=== PATIENT | female | born 1935 | race Caucasian/White ===

== ENCOUNTER 2017-02-13 20:54 | Observation (INO) | payer MEDICARE, OTHER ==
--- NOTE | 2017-02-13 21:28 | EDM.PDOC ---
ED HPI GENERAL MEDICAL PROBLEM - General Chief Complaint: General Stated Complaint: WEAKNESS Time Seen by Provider: 02/13/17 21:23 Source of Information: Reports: Patient History Limitations: Reports: No limitations - History of Present Illness INITIAL COMMENTS - FREE TEXT/NARRATIVE: c/o anemia was seen in clinic by INVENTORY CONTROL SPECIALIST this afternoon, told to come to hospital to be admitted , Dr Beth was expecting here, did not come until this PM when her friend persuaded her to come c/o sob, URI and "wobbly" x 3d, hgb 6.8 today, told she needed blood does not know color of stools, BM x 1 today, loose stools 1d ago told she had a "small IN" based on her EKG which is not available, no previous CV trouble never smoked lives alone, friend brought her in never had a colonoscopy, had been recommended earlier this yr labs told are without comparison hgb 6.8, mcv 66, rdw 18. BUN/creat 26/1.5. BNP 276. pCO2 26. CxR 2 view with flattened diaphragms, cardiomegaly, old compression fx t-spine - Related Data Allergies Allergy/AdvReac Type Severity Reaction Status Date / Time No Known Allergies Allergy Verified 02/13/17 20:55 Home Meds: Home Meds Aspirin [Adult Low Dose Aspirin EC] 81 mg PO DAILY 08/09/15 [History] Calcium Carbonate/Vitamin D3 [Calcium 600 + D Tablet] 1 tab BID 08/09/15 [ History] Cyclobenzaprine [Flexeril] 10 mg BEDTIME 08/09/15 [History] HYDROcodone/Ibuprofen [Hydrocodone-Ibuprofen 7.5-200] 1 tab Q4H PRN 08/09/15 [ History] Multivitamin with Minerals [Multiple Vitamin] 1 tab DAILY 08/09/15 [History] rOPINIRole [Requip] 2 mg PO BID 08/09/15 [History] Past Medical History Other HEENT History: L retinal detachment Other Musculoskeletal History: compression fx to back - Past Surgical History Other HEENT Surgeries/Procedures: surgery on both eyes Social & Family History - Tobacco Use Smoking Status *Q: Former Smoker Years of Tobacco use: 2 - Recreational Drug Use Recreational Drug Use: No ED ROS GENERAL - Review of Systems Review Of Systems: See Below Constitutional: Reports: no symptoms HEENT: Reports: No symptoms Respiratory: Reports: No Symptoms Cardiovascular: Reports: No symptoms Endocrine: Reports: no symptoms GI/Abdominal: Reports: No symptoms : Reports: no symptoms Musculoskeletal: Reports: no symptoms Skin: Reports: no symptoms Neurological: Reports: Weakness, Other (not fallen) Psychiatric: Reports: No symptoms Hematologic/Lymphatic: Reports: no symptoms Immunologic: Reports: no symptoms ED EXAM, GENERAL - Physical Exam Exam: See Below Exam Limited By: No limitations General Appearance: alert, WD/WN, no apparent distress Ears: normal external exam Nose: normal inspection, normal mucosa, no blood Throat/Mouth: Normal inspection, Normal lips, Normal gums, Normal oropharynx, Normal voice, No airway compromise Head: atraumatic Neck: normal inspection, supple, non-tender, full range of motion, other (no carotid bruits) Respiratory/Chest: no respiratory distress, lungs clear, normal breath sounds, no accessory muscle use, chest non-tender Cardiovascular: regular rate, rhythm, no edema, no gallop, no murmur, no rub GI/Abdominal: normal bowel sounds, soft, non tender, no distention, no mass Back Exam: normal inspection, full range of motion, NT Extremities: normal inspection, normal range of motion, non-tender, normal capillary refill, no pedal edema Neurological: alert, oriented, CN II-XII intact, normal cognition, no motor/ sensory deficits Psychiatric: normal affect, normal mood Skin Exam: Warm, Dry, Intact, No rash, Other (pallor) Course - Vital Signs Last Recorded V/S: Last Vital Signs Temp 36.7 C 02/13/17 21:05 Pulse 74 02/13/17 21:05 Resp 17 02/13/17 21:05 BP 117/56 L 02/13/17 21:05 Pulse Ox 100 02/13/17 21:05 Departure - Departure Time of Disposition: 21:29 Disposition: Admitted As Inpatient 65 Condition: good Clinical Impression: Microcytic hypochromic anemia, Renal insufficiency, Elevated brain natriuretic peptide (BNP) level, Cardiomegaly, Weakness Forms: ED Department Discharge Additional Instructions: will admit to obs bed for 2u PRBC, will need stool hemoccult, TSH, u/a, orthostatics. will repeat EKG, may need cardiac echo
[2017-02-13] MEDS ORDERED: Acetaminophen 325 MG Tab PO PRN (21:34)
[2017-02-13] MEDS ORDERED: Zolpidem 5 MG Tab PO PRN (21:34)
[2017-02-13] MEDS ORDERED: HYDROcodone/Ibuprofen 7.5-200 MG Tab PO PRN (21:42)
[2017-02-13] MEDS ORDERED: Sodium Chloride 0.9% 250 ML IV SCH (21:45)
[2017-02-13] MEDS ORDERED: rOPINIRole 2 MG Tab PO SCH (21:45)
[2017-02-13] MEDS ORDERED: rOPINIRole 1 MG Tab ONE (23:05)
[2017-02-13] MEDS: Sodium Chloride 0.9% 10 ML Syringe FLUSH PRN (23:10)
[2017-02-13] MEDS: rOPINIRole 1 MG Tab PO SCH (23:11)
[2017-02-14] MEDS ORDERED: Furosemide 20 MG/2 ML VIAL IVPUSH ONE (03:30)
[2017-02-14] MEDS: Sodium Chloride 0.9% 10 ML Syringe FLUSH PRN ×3 (04:30→07:32)
[2017-02-14 08:32] VITALS: BP 97/60
[2017-02-14] MEDS ORDERED: Aspirin 81 MG Tab.EC PO SCH (09:00)
--- NOTE | 2017-02-14 09:01 | PCM.HP ---
H&P History of Present Illness - General Date of Service: 02/14/17 Admit Problem/Dx: Admission Diagnosis/Problem Admission Diagnosis/Problem Microcytic hypochromic anemia Source of Information: Patient History Limitations: Reports: No limitations - History of Present Illness Initial Comments - Free Text/Narative: 81-year-old female with shortness of breath, on mild exertion. She was seen in the urgent care clinic yesterday and found to have a hemoglobin of 6.9. She presented acutely with symptoms over just about a week. She denied any overt bleeding areas e.g. melena stools or diarrhea ,and she has never had a colonoscopy.she also complained of no altered bowel movements negative she have any chest pain. She did state that she's had heartburn for which she takes omeprazole. No chest pain.She has never had a colonoscopy. - Related Data Allergies/Adverse Reactions: Allergies Allergy/AdvReac Type Severity Reaction Status Date / Time No Known Allergies Allergy Verified 02/13/17 20:55 Home Medications: Home Meds Aspirin [Adult Low Dose Aspirin EC] 81 mg PO DAILY 08/09/15 [History] Multivitamin with Minerals [Multiple Vitamin] 1 tab DAILY 08/09/15 [History] rOPINIRole [Requip] 2 mg PO BID 08/09/15 [History] Calcium Carbonate [Calcium] 600 mg PO DAILY 02/13/17 [History] Gabapentin [Neurontin] 600 mg PO BEDTIME 02/13/17 [History] Past Medical History HEENT History: Reports: Cataract, Macular degeneration Other HEENT History: L retinal detachment Cardiovascular History: Reports: None Respiratory History: Reports: None Gastrointestinal History: Reports: Other (see below) Other Gastrointestinal History: occ heartburn problems takes omeprazole Genitourinary History: Reports: Other (see below) Other Genitourinary History: POA states that patient was currently told that her jidney fucntion now is only 33%. Has a hard time getting urine to start, occ stress incont ACCESS CONTROL OFFICER History: Reports: , Other (see below) Other OB/BYN History: hysterectomy Other Musculoskeletal History: compression fx to back Neurological History: Reports: None Psychiatric History: Reports: None Endocrine/Metabolic History: Reports: None Hematologic History: Reports: Anemia Oncologic (Cancer) History: Reports: None Dermatologic History: Reports: None - Infectious Disease History Infectious Disease History: Reports: Chicken pox, Measles, Pertussis (whooping cough) - Past Surgical History Head Surgeries/Procedures: Reports: None HEENT Surgical History: Reports: Cataract surgery Other HEENT Surgeries/Procedures: surgery on both eyes Social & Family History - Family History Family Medical History: Noncontributory - Tobacco Use Smoking Status *Q: Never Smoker Years of Tobacco use: 2 Second Hand Smoke Exposure: No - Caffeine Use Caffeine Use: Reports: Coffee Other Caffeine Use: 4-6 cups a day - Recreational Drug Use Recreational Drug Use: No H&P Review of Systems - Review of Systems: Review Of Systems: ROS reveals no pertinent complaints other than HPI. Exam - Exam Exam: See Below - Vital Signs Vital Signs: Last Vital Signs Temp 97.9 F 02/14/17 08:25 Pulse 74 02/14/17 07:25 Resp 18 02/14/17 08:25 BP 97/60 02/14/17 08:25 Pulse Ox 97 02/14/17 08:25 Orthostatic Blood Pressure [ 116/74 Standing] Orthostatic Blood Pressure [ 120/60 Sitting] Orthostatic Blood Pressure [ 120/56 Supine] Weight: 56.608 kg - Exam General: alert, oriented, 4 HEENT: PERRLA, Hearing intact, Mucosa moist & pink, Nares patent, Normal nasal septum, Posterior pharynx clear, Conjunctiva clear, EOMI, EACs clear, TMs clear Neck: supple, trachea midline, 2 Lungs: Clear to auscultation, Normal respiratory effort Cardiovascular: regular rate, regular rhythm Abdomen: normal bowel sounds, soft (Female) Exam: Normal external exam, Normal speculum exam, Normal bimanual exam Rectal (Female) Exam: Normal Exam, Normal rectal tone Back Exam: normal inspection, full range of motion, NT Extremities: 3, normal inspection, 10 Skin: warm, dry, intact Neurological: cranial nerves intact, reflexes equal bilateral Neuro Extensive - Mental Status: alert, oriented x3, normal mood/affect, normal cognition Neuro Extensive - Motor, Sensory, Reflexes: CN II-XII intact, normal gait, normal reflexes Psychiatric: alert, normal affect, normal mood - Patient Data Lab Results last 24 hrs: Laboratory Results - last 24 hr 02/14/17 02/14/17 Range/Units 05:00 07:50 WBC 2.7 L (4.5-12.0) X10-3/uL RBC 4.33 (3.23-5.20) x10(6)uL Hgb 9.8 L D (11.5-15.5) g/dL Hct 31.5 (30.0-51.3) % MCV 72.7 L (80-96) fL MCH 22.6 L (27.7-33.6) pg MCHC 31.0 L (32.2-35.4) g/dL RDW 23.5 H (11.5-15.5) % Plt Count 279 (125-369) X10(3)uL MPV 8.1 (7.4-10.4) fL Add Manual Diff Yes Neutrophils % (Manual) 46 (46-82) % Lymphocytes % (Manual) 40 H (13-37) % Monocytes % (Manual) 14 H (4-12) % Hypochromasia Few Anisocytosis Moderate H Microcytosis Moderate H Urine Color Yellow (YELLOW) Urine Appearance Clear (CLEAR) Urine pH 5.0 (5.0-6.5) Ur Specific [place] 1.015 (1.010-1.025) Urine Protein Negative (NEGATIVE) mg/dL Urine Glucose (UA) Normal (NEGATIVE) mg/dL Urine Ketones Negative (NEGATIVE) mg/dL Urine Occult Blood Negative (NEGATIVE) Urine Nitrite Negative (NEGATIVE) Urine Bilirubin Negative (NEGATIVE) Urine Urobilinogen Normal (NEGATIVE) mg/dL Ur Leukocyte Esterase Moderate H (NEGATIVE) Urine RBC 0-5 (0) Urine WBC 0-5 (0) Ur Squamous Epith Cells Few H (NS,R,O) Urine Bacteria Rare H (NS) Result Diagrams: 02/14/17 07:50 *Q Meaningful Use (ADM) - VTE *Q VTE Criteria *Q: - Stroke *Q Stroke Criteria *Q: - AMI *Q AMI Criteria *Q: - Problem List (1) Microcytic hypochromic anemia SNOMED Code(s): 12763698 ICD Code: D50.9 - IRON DEFICIENCY ANEMIA, UNSPECIFIED Status: Acute Current Visit: Yes (2) Back pain SNOMED Code(s): 058823776 ICD Code: M54.9 - DORSALGIA, UNSPECIFIED Status: Acute Current Visit: No Problem List Initiated/Reviewed/Updated: Yes Orders Last 24hrs: Active Orders 24 hr Category Date Time Status Patient Status [ADT] Routine ADT 02/13/17 21:34 Active Ambulate [RC] 09,13,17,21 Care 02/13/17 21:36 Active Orthostatic Vital Signs [RC] ASDIRECTED Care 02/13/17 21:40 Active Oxygen Therapy [RC] PRN Care 02/13/17 21:34 Active VTE/DVT Education [RC] Per Unit Routine Care 02/13/17 21:34 Active Vital Signs [RC] 04,08,12,16,20,00 Care 02/13/17 21:34 Active 2 Gram Sodium Diet [DIET] Diet 02/14/17 Breakfast Ordered Echo Comp wo Cont [US] Stat Exams 02/13/17 21:41 Stop Req Echo Comp wo Cont [US] Stat Exams 02/15/17 07:00 Ordered FERRITIN [REF] Stat Lab 02/13/17 14:25 Received Hemoccult [OCCULT BLOOD DIAGNOSTIC] [OP] Stat Lab 02/14/17 08:28 Ordered Acetaminophen [Tylenol] Med 02/13/17 21:34 Active 650 mg PO Q4H PRN Aspirin [Halfprin] Med 02/14/17 09:00 Active 81 mg PO DAILY HYDROcodone/Ibuprofen [Vicoprofen] Med 02/13/17 21:42 Active 1 tab PO Q4H PRN Sodium Chloride 0.9% [Normal Saline] 250 ml Med 02/13/17 21:45 Active IV ASDIRECTED Sodium Chloride 0.9% [Saline Flush] Med 02/13/17 23:03 Active 10 ml FLUSH ASDIRECTED PRN Zolpidem [Ambien] Med 02/13/17 21:34 Active 5 mg PO BEDTIME PRN rOPINIRole [Requip] Med 02/13/17 23:15 Active 2 mg PO BID Transfuse PRBC [Transfuse Red Blood Cells] [COMM] Per Oth 02/13/17 21:38 Ordered Unit Routine Resuscitation Status Routine Resus Stat 02/13/17 21:34 Ordered EKG 12 Lead [EK] AM Ther 02/14/17 05:11 Ordered Medication Orders Acetaminophen (Tylenol) 650 mg PO Q4H PRN PRN Reason: Pain (Mild 1-3)/fever Aspirin (Halfprin) 81 mg PO DAILY CARLOS Hydrocodone Bitartrate/Ibuprofen (Vicoprofen) 1 tab PO Q4H PRN PRN Reason: Pain Sodium Chloride (Normal Saline) 250 mls @ 100 mls/hr IV ASDIRECTED [facility] Last Admin: 02/14/17 01:10 Dose: 100 mls/hr Ropinirole HCl (Requip) 2 mg PO BID [facility] Last Admin: 02/13/17 23:11 Dose: 2 mg Sodium Chloride (Saline Flush) 10 ml FLUSH ASDIRECTED PRN PRN Reason: Keep Vein Open Last Admin: 02/14/17 07:32 Dose: 10 ml Admin: 02/14/17 04:34 Dose: 10 ml Admin: 02/14/17 04:30 Dose: 10 ml Admin: 02/13/17 23:10 Dose: 10 ml Zolpidem Tartrate (Ambien) 5 mg PO BEDTIME PRN PRN Reason: Sleep Assessment/Plan Comment:: Overnight she said 2 units of PRBCs. She states that she feels better this morning, and the hemoglobin is up to 9.8. WBC is 2.7 platelets are normal. I did an occult blood testing of feces in the post negative. The plan is to discharge him home to followup as an outpatient, and a further workup for anemia but will have her go home on iron supplementation.
[2017-02-14] MEDS: rOPINIRole 1 MG Tab PO SCH (13:36)
== END 2017-02-14 10:25 | disposition home or self-care (01) ==
LOC: FB.ED 20:54 → FB.MS 21:31
PROVIDERS: ADMIT Emergency Medicine; ATTEND Family Medicine
DX: D50.9 Iron deficiency anemia, unspecified (principal); M54.9 Dorsalgia, unspecified; Z79.82 Long term (current) use of aspirin; Z79.899 Other long term (current) drug therapy; Z90.710 Acquired absence of both cervix and uterus; Z98.890 Other specified postprocedural states; Z87.891 Personal history of nicotine dependence; R06.02 Shortness of breath; R53.83 Other fatigue; R94.31 Abnormal electrocardiogram [ECG] [EKG]; J44.9 Chronic obstructive pulmonary disease, unspecified; M48.54XA Collapsed vertebra, not elsewhere classified, thoracic region, initial encounter for fracture; K44.9 Diaphragmatic hernia without obstruction or gangrene; Q21.1 Atrial septal defect; M41.84 Other forms of scoliosis, thoracic region
CPT/HCPCS: 36415; 36430; 36600; 71020; 80053; 81001; 82272; 82728; 82803; 83605; 83880; 84443; 84484; 85025; 85379; 86850; 86900; 86901; 86920; 86922; 93005; 99284; 99285; A9270; G0378; J1940; J7050; P9016; 99218

== ENCOUNTER 2017-03-15 06:12 | Day surgery (SDC) | payer MEDICARE, OTHER ==
[2017-03-15] MEDS ORDERED: Lactated Ringers 1,000 ML IV SCH (06:45)
[2017-03-15] MEDS ORDERED: Propofol 200 MG/20 ML SDV IV ONE (08:00)
[2017-03-15] MEDS ORDERED: Lidocaine 2% 100 MG/5 ML Syringe IVPUSH ONE (08:00)
--- NOTE | 2017-03-15 08:41 | PCM.OPNOTE ---
- General Post-Op/Procedure Note Date of Surgery/Procedure: 03/15/17 Operative Procedure(s): egd with bx. c scope Findings: mild gastritis hiatal hernia normal colon Pre Op Diagnosis: fe def anemia Post-Op Diagnosis: mild gastritis. hiatal hernia. normal colon Anesthesia Technique: MAC Primary Surgeon: Harinder Ortiz Anesthesia Provider: Pete Hurd Pathology: stomach Complications: None Condition: Good Free Text/Narrative:: see dictation
[2017-03-15 09:50] VITALS: BP 130/76
--- NOTE | 2017-03-15 11:25 | OR ---
DATE OF OPERATION: 03/15/2017 SURGEON: Harinder Ortiz MD PROCEDURE PERFORMED: Esophagogastroduodenoscopy with cold forceps biopsy and colonoscopy. PREOPERATIVE DIAGNOSIS: Anemia, iron deficient. POSTOPERATIVE DIAGNOSES: Gastritis, hiatal hernia, normal colonoscopy. INDICATIONS FOR PROCEDURE: This is an 81-year-old, white female, who was recently referred with a history of iron deficiency anemia. She was offered and accepted an EGD as part of the workup. DESCRIPTION OF OPERATION: After an excellent IV sedation was administered, the bite block was inserted. The flexible endoscope was passed without difficulty into the patient's esophagus into the stomach. The stomach was insufflated. The scope was passed through the pylorus to the second portion of the duodenum and slowly withdrawn. The following findings were noted. Duodenum was unremarkable. The stomach demonstrates some very mild gastritis. Biopsies were taken. On retroflexing the scope, there was evidence of a hiatal hernia with approximately 10 cm of stomach, freely sliding in and out of the chest. GE junction measured at 30 cm. Examination of the esophagus revealed no marked abnormalities. Stomach was deflated. The scope was removed. Our attention was then turned to the colon. Digital rectal exam was performed. No marked abnormality was noted. The flexible colonoscope was inserted and advanced to the cecum without difficulty. The following findings were noted. Ascending colon, unremarkable. Transverse colon, unremarkable. Descending colon, unremarkable. Sigmoid and rectum unremarkable. Colon was deflated, as the scope was removed. The patient tolerated the procedure well, and was taken to recovery room in good condition. /[id number] /QUANL
== END 2017-03-15 09:35 | disposition home or self-care (01) ==
LOC: FB.SDS 06:12
PROVIDERS: ATTEND Surgery
PROC: 0DJD8ZZ Inspection of Lower Intestinal Tract, Via Natural or Artificial Opening Endoscopic (ICD-10-PCS; principal; 2017-03-15)
DX: D50.9 Iron deficiency anemia, unspecified (principal); K29.70 Gastritis, unspecified, without bleeding; K44.9 Diaphragmatic hernia without obstruction or gangrene; Z79.82 Long term (current) use of aspirin; Z79.899 Other long term (current) drug therapy; Z90.710 Acquired absence of both cervix and uterus; Z98.890 Other specified postprocedural states
CPT/HCPCS: 00810; 43239; 45378; 88305; 88342; J2704; J7120

== ENCOUNTER 2017-10-13 19:09 | Emergency (ER) | payer MEDICARE, OTHER ==
[2017-10-13] MEDS ORDERED: Ketorolac 30 MG/ML SDV IM ONE (19:15)
--- NOTE | 2017-10-13 19:24 | EDM.PDOC ---
ED HPI GENERAL MEDICAL PROBLEM - General Stated Complaint: BACK PAIN Time Seen by Provider: 10/13/17 19:09 Source of Information: Reports: Patient, Family History Limitations: Reports: No Limitations - History of Present Illness INITIAL COMMENTS - FREE TEXT/NARRATIVE: 82 years old w f with a history of scoliosis, come to the ed due to worsening upper back pain. No trauma.Pain is worse at the upper back, left and right side of her spine. No N/V/D or any other acute medical issues. BP 135/68 pulse 76 temp 36.7 RR 19 Pulse ox 96% in RA Onset: Gradual Onset Date: 10/13/17 Onset Time: 07:00 Duration: Getting Worse, Intermittent Location: Reports: Back Quality: Reports: Ache, Burning, Dull, Same as Previous Episode Severity: Moderate Improves with: Reports: Rest Worsens with: Reports: Movement Context: Reports: Other (scoliosis) Mid to upper back Pain Score (Numeric/FACES): 8 - Related Data Allergies Allergy/AdvReac Type Severity Reaction Status Date / Time No Known Allergies Allergy Verified 03/15/17 08:59 Home Meds: Home Meds Aspirin [Adult Low Dose Aspirin EC] 81 mg PO DAILY 08/09/15 [History] Multivitamin with Minerals [Multiple Vitamin] 1 tab DAILY 08/09/15 [History] Calcium Carbonate [Calcium] 600 mg PO DAILY 02/13/17 [History] Gabapentin [Neurontin] 600 mg PO BEDTIME 02/13/17 [History] Ferrous Sulfate 324 mg PO BID 03/14/17 [History] Acetaminophen [Tylenol Extra Strength] 1,000 mg PO BID PRN 10/13/17 [History] Ibuprofen [Motrin] 600 mg PO Q8H PRN #30 tab 10/13/17 [Rx] Orphenadrine [Norflex] 100 mg PO QID PRN #20 tab.er 10/13/17 [Rx] Pantoprazole Sodium [Protonix] 40 mg PO DAILY 10/13/17 [History] Past Medical History HEENT History: Reports: Cataract, Macular Degeneration, Retinal Detachment Other HEENT History: PSEUDOPHAKIA; HYPEROPIA; ASTIGMATISM; PRESBYOPIA Cardiovascular History: Reports: None Respiratory History: Reports: None Gastrointestinal History: Reports: GERD Genitourinary History: DIRECTOR OF PHOTOGRAPHY History: Reports: Musculoskeletal History: Reports: Arthritis, Back Pain, Chronic Other Musculoskeletal History: compression fx to back Neurological History: Reports: Vertigo Psychiatric History: Reports: None Endocrine/Metabolic History: Reports: None Hematologic History: Reports: Anemia, Iron Deficiency Immunologic History: Reports: None Oncologic (Cancer) History: Reports: None Dermatologic History: Reports: None - Infectious Disease History Infectious Disease History: Reports: Chicken Pox - Past Surgical History HEENT Surgical History: Reports: Cataract Surgery, Detached Retina, Laser Surgery Social & Family History - Family History Family Medical History: Noncontributory - Tobacco Use Smoking Status *Q: Never Smoker Years of Tobacco use: 2 Second Hand Smoke Exposure: No - Caffeine Use Caffeine Use: Reports: Coffee Other Caffeine Use: 4-6 cups a day - Recreational Drug Use Recreational Drug Use: No ED ROS GENERAL - Review of Systems Review Of Systems: See Below Constitutional: Reports: No Symptoms HEENT: Reports: No Symptoms Respiratory: Reports: No Symptoms Cardiovascular: Reports: No Symptoms Endocrine: Reports: No Symptoms GI/Abdominal: Reports: No Symptoms : Reports: No Symptoms Musculoskeletal: Reports: Shoulder Pain, Back Pain Skin: Reports: No Symptoms Neurological: Reports: No Symptoms Psychiatric: Reports: No Symptoms Hematologic/Lymphatic: Reports: No Symptoms Immunologic: Reports: No Symptoms ED EXAM, UPPER BACK/NECK PAIN - Physical Exam Exam: See Below Exam Limited By: No Limitations General Appearance: Alert, WD/WN, Cachetic Eye Exam: Bilateral Eye: Normal Inspection Ears Exam: Normal External Exam Nose Exam: Normal Inspection Throat/Mouth Exam: Normal Inspection, Normal Lips Head Exam: Atraumatic, Normocephalic Neck Exam: Non-Tender, Full Range of Motion, Normal Alignment, Normal Inspection Cardiovascular/Respiratory: Regular Rate, Rhythm, No M/R/G GI/Abdominal: Normal Bowel Sounds (Female) Exam: Deferred Rectal (Female) Exam: Deferred Back Exam: Decreased Range of Motion, Muscle Spasm, Paraspinal Tenderness Extremities: Normal Inspection, Normal Range of Motion, Non-Tender, No Pedal Edema Neurologic: scouts II-XII nml As Tested, No Motor/Sensory Deficits, Alert Psychiatric: Normal Affect, Normal Mood Skin Exam: Normal Color, Warm/Dry Lymphatic: No Adenopathy Course - Vital Signs Text/Narrative:: 82 years old w f with a history of scoliosis, come to the ed due to worsening upper back pain. No trauma.Pain is worse at the upper back, left and right side of her spine. No N/V/D or any other acute medical issues. BP 135/68 pulse 76 temp 36.7 RR 19 Pulse ox 96% in RA PE: Cachectic 82 y.o.w.f with upper para vertebral back pain Impression: pper para vertebral back pain, cachexia Tx: Toradol, Norflex, ICE Reexam: Improved Plan: D/C with instructions Last Recorded V/S: Last Vital Signs Temp 36.4 C 10/13/17 19:15 Pulse 75 10/13/17 19:15 Resp 18 10/13/17 19:15 BP 135/68 10/13/17 19:15 Pulse Ox 100 10/13/17 19:15 - Orders/Labs/Meds Orders: Active Orders 24 hr Category Date Time Status Cooling Warming Measures [RC] ASDIRECTED Care 10/13/17 19:18 Active Orphenadrine [Norflex] Med 10/13/17 19:15 Active 60 mg IM Q12H Ice Bag [Ice Therapy] [OM.PC] Routine Oth 10/13/17 19:18 Ordered Medication Orders Orphenadrine Citrate (Norflex) 60 mg IM Q12H CARLOS Last Admin: 10/13/17 19:30 Dose: 60 mg Meds: Medications Generic Name Dose Route Start Last Admin Trade Name Freq PRN Reason Stop Dose Admin Orphenadrine Citrate 60 mg 10/13/17 19:15 10/13/17 19:30 Norflex IM 60 mg Q12H CARLOS Administration Discontinued Medications Generic Name Dose Route Start Last Admin Trade Name Freq PRN Reason Stop Dose Admin Ketorolac Tromethamine 30 mg 10/13/17 19:15 10/13/17 19:28 Toradol IM 10/13/17 19:16 30 mg ONETIME ONE Administration Departure - Departure Time of Disposition: 20:19 Disposition: Home, Self-Care 01 Condition: Good Clinical Impression: Scoliosis (and kyphoscoliosis), idiopathic Back pain Qualifiers: Back pain location: thoracic back pain Chronicity: chronic Back pain laterality : bilateral Qualified Code(s): M54.6 - Pain in thoracic spine - Discharge Information Prescriptions: Ibuprofen [Motrin] 600 mg PO Q8H PRN #30 tab PRN Reason: Pain Orphenadrine [Norflex] 100 mg PO QID PRN #20 tab.er PRN Reason: back spasm Instructions: Back Pain, Adult, [id number] Referrals: Gab Calix MD [Primary Care Provider] - Forms: ED Department Discharge Additional Instructions: Please apply ice to the affected area, please take the meds as recommended, please follow up, please come back if your symptoms get worse. - My Orders Last 24 Hours: My Active Orders 10/13/17 19:15 Orphenadrine [Norflex] 60 mg IM Q12H 10/13/17 19:18 Cooling Warming Measures [RC] ASDIRECTED Ice Bag [Ice Therapy] [OM.PC] Routine - Assessment/Plan Last 24 Hours: My Active Orders 10/13/17 19:15 Orphenadrine [Norflex] 60 mg IM Q12H 10/13/17 19:18 Cooling Warming Measures [RC] ASDIRECTED Ice Bag [Ice Therapy] [OM.PC] Routine
[2017-10-13 22:28] VITALS: BP 112/55
== END 2017-10-13 20:35 | disposition home or self-care (01) ==
LOC: FB.ED 19:09
DX: M41.24 Other idiopathic scoliosis, thoracic region (principal); R64 Cachexia; Z79.899 Other long term (current) drug therapy; Z79.82 Long term (current) use of aspirin
CPT/HCPCS: 96372; 99283; J1885; J2360

== ENCOUNTER 2020-09-17 06:15 | Inpatient (IN) | payer MEDICARE, OTHER ==
[2020-09-17] MEDS ORDERED: Pantoprazole 40 MG Vial IVPUSH ONE (06:49)
[2020-09-17] MEDS ORDERED: Ondansetron 4 MG/2 ML SDV IVPUSH ONE (06:49)
[2020-09-17] MEDS ORDERED: Digoxin 500 MCG/2 ML Amp IVPUSH ONE (06:49)
[2020-09-17] MEDS ORDERED: Sodium Chloride 0.9% 500 ML IV ONE (06:50)
--- NOTE | 2020-09-17 06:56 | EDM.PDOC ---
ED HPI GENERAL MEDICAL PROBLEM - General Chief Complaint: Abdominal Pain Stated Complaint: VOMITTING/ABDOMINAL PAIN Time Seen by Provider: 09/17/20 06:51 Source of Information: Reports: Patient History Limitations: Reports: No Limitations - History of Present Illness INITIAL COMMENTS - FREE TEXT/NARRATIVE: Presents with epigastric pain and N/V, onset 2 days ago. She vomited on day one of illness but has only been nauseas since. Denies diarrhea, fevers, cough, or chest pain. Last BM was three days ago and she last had flatus four days ago. Patient has never been diagnosed with Atrial Fibrillation. Past surgical history significant for Hysterectomy. Patient lives alone. Ligia Ivory is her HPOA, she states patient is DNR. Onset Date: 09/15/20 Location: Reports: Abdomen Quality: Reports: Ache Severity: Moderate - Related Data Allergies Allergy/AdvReac Type Severity Reaction Status Date / Time No Known Allergies Allergy Verified 03/15/17 08:59 Home Meds: Home Meds Aspirin [Adult Low Dose Aspirin EC] 81 mg PO DAILY 08/09/15 [History] Multivitamin with Minerals [Multiple Vitamin] 1 tab DAILY 08/09/15 [History] Calcium Carbonate [Calcium] 600 mg PO DAILY 02/13/17 [History] Gabapentin [Neurontin] 600 mg PO BEDTIME 02/13/17 [History] Ferrous Sulfate 324 mg PO BID 03/14/17 [History] Acetaminophen [Tylenol Extra Strength] 1,000 mg PO BID PRN 10/13/17 [History] Ibuprofen [Motrin] 600 mg PO Q8H PRN #30 tab 10/13/17 [Rx] Orphenadrine [Norflex] 100 mg PO QID PRN #20 tab.er 10/13/17 [Rx] Pantoprazole Sodium [Protonix] 40 mg PO DAILY 10/13/17 [History] Past Medical History HEENT History: Reports: Cataract, Macular Degeneration, Retinal Detachment Other HEENT History: PSEUDOPHAKIA; HYPEROPIA; ASTIGMATISM; PRESBYOPIA Cardiovascular History: Reports: None Respiratory History: Reports: None Gastrointestinal History: Reports: GERD Genitourinary History: [employer] History: Reports: Musculoskeletal History: Reports: Arthritis, Back Pain, Chronic Other Musculoskeletal History: compression fx to back Neurological History: Reports: Vertigo Psychiatric History: Reports: None Endocrine/Metabolic History: Reports: None Hematologic History: Reports: Anemia, Iron Deficiency Immunologic History: Reports: None Oncologic (Cancer) History: Reports: None Dermatologic History: Reports: None Other Dermatologic History: Gets frequent rashes & sores. - Infectious Disease History Infectious Disease History: Reports: Chicken Pox - Past Surgical History HEENT Surgical History: Reports: Cataract Surgery, Detached Retina, Laser Surgery Female Surgical History: Reports: Hysterectomy Social & Family History - Family History Family Medical History: Noncontributory - Tobacco Use Tobacco Use Status *Q: Former Tobacco User - Caffeine Use Caffeine Use: Reports: Coffee Other Caffeine Use: 4-6 cups a day - Alcohol Use Alcohol Use History: No - Recreational Drug Use Recreational Drug Use: No ED ROS GENERAL - Review of Systems Review Of Systems: Comprehensive ROS is negative, except as noted in HPI. ED EXAM, GI/ABD - Physical Exam Exam: See Below Exam Limited By: No Limitations General Appearance: Alert, WD/WN, No Apparent Distress Ears: Normal External Exam Nose: Normal Inspection Throat/Mouth: Normal Inspection, No Airway Compromise Head: Atraumatic, Normocephalic Neck: Normal Inspection Respiratory/Chest: No Respiratory Distress, Lungs Clear, Normal Breath Sounds Cardiovascular: Regular Rate, Rhythm, No Murmur GI/Abdominal Exam: Normal Bowel Sounds, Soft, No Distention, Tender (epigastric). No: Guarding Back Exam: Full Range of Motion Extremities: Normal Range of Motion Neurological: Alert, Oriented, Normal Cognition, No Motor/Sensory Deficits Psychiatric: Normal Affect, Normal Mood Skin Exam: Warm, Dry, Intact, Normal Color #1 Interpretation EKG Date: 09/17/20 Time: 06:28 Rhythm: A-Fib Rate (Beats/Min): 135 [place]: Normal P-Wave: Absent QRS: Normal ST-T: Depressed QT: Prolonged Comparison: Change From Previous EKG Course - Vital Signs Last Recorded V/S: Last Vital Signs Temp 35.8 C L 09/17/20 07:57 Pulse 88 09/17/20 07:57 Resp 18 09/17/20 07:57 BP 119/83 09/17/20 07:57 Pulse Ox 99 09/17/20 07:57 - Orders/Labs/Meds Orders: Active Orders 24 hr Category Date Time Status Admission Status [Patient Status] [ADT] Routine ADT 09/17/20 09:18 Ordered EKG Documentation Completion [RC] ASDIRECTED Care 09/17/20 06:47 Active EKG Documentation Completion [RC] ASDIRECTED Care 09/17/20 07:49 Active Abdomen Ltd [US] Stat Exams 09/17/20 08:47 Ordered Abdomen Pelvis w Cont [CT] Stat Exams 09/17/20 07:50 Taken CULTURE BLOOD [BC] Urgent Lab 09/17/20 07:00 Received CULTURE BLOOD [BC] Urgent Lab 09/17/20 07:05 Received LACTIC ACID [CHEM] Routine Lab 09/17/20 10:00 Ordered UA W/MICROSCOPIC [URIN] Stat Lab 09/17/20 06:46 Ordered Piperacillin/Tazobactam [Zosyn] 2.25 gm Med 09/17/20 09:00 Active Sodium Chloride 0.9% [Normal Saline] 50 ml IV Q6H Sodium Chloride 0.9% @ 100 MLS/HR(1,000ml) Med 09/17/20 09:15 Ordered Sodium Chloride 0.9% [Normal Saline] 1,000 ml IV ASDIRECTED Sodium Chloride 0.9% [Saline Flush] Med 09/17/20 06:47 Active 10 ml FLUSH ASDIRECTED PRN Blood Culture x2 Reflex Set [OM.PC] Urgent Oth 09/17/20 06:46 Ordered Saline Lock Insert [OM.PC] Routine Oth 09/17/20 06:47 Ordered EKG 12 Lead [EK] Stat Ther 09/17/20 06:47 Ordered EKG 12 Lead [EK] Stat Ther 09/17/20 07:49 Ordered Medication Orders Piperacillin Sod/Tazobactam (Sod 2.25 gm/ Sodium Chloride) 50 mls @ 100 mls/hr IV Q6H CARLOS Last Admin: 09/17/20 09:02 Dose: 100 mls/hr Documented by: SPIKE Sodium Chloride (Normal Saline) 1,000 mls @ 100 mls/hr IV ASDIRECTED CARLOS Sodium Chloride (Saline Flush) 10 ml FLUSH ASDIRECTED PRN PRN Reason: Keep Vein Open Last Admin: 09/17/20 09:01 Dose: 10 ml Documented by: Admin: 09/17/20 07:00 Dose: 10 ml Documented by: MANUEL Labs: Laboratory Tests 10/28/20 10/28/20 10/28/20 Range/Units 07:00 07:00 07:00 WBC 16.0 H (4.5-12.0) X10-3/uL RBC 4.73 (3.23-5.20) x10(6)uL Hgb 15.3 (11.5-15.5) g/dL Hct 44.9 D (30.0-51.3) % MCV 94.9 (80-96) fL MCH 32.4 (27.7-33.6) pg MCHC 34.1 (32.2-35.4) g/dL RDW 12.9 (11.5-15.5) % Plt Count 352 (125-369) X10(3)uL MPV 7.6 (7.4-10.4) fL Add Manual Diff Yes Neutrophils % (Manual) 86 H (46-82) % Band Neutrophils % 1 (0-6) % Lymphocytes % (Manual) 9 L (13-37) % Monocytes % (Manual) 4 (4-12) % PT 10.5 (9.0-11.1) sec INR 0.97 L (1.00-1.24) APTT 23.6 L (24.4-33.2) SECONDS Sodium 139 (135-145) mmol/L Potassium 4.1 (3.5-5.3) mmol/L Chloride 102 (100-110) mmol/L Carbon Dioxide 28 (21-32) mmol/L BUN 34 H (7-18) mg/dL Creatinine 1.6 H (0.55-1.02) mg/dL Est Cr Clr Drug Dosing 18.13 mL/min Estimated GFR (MDRD) 31 L (>60) BUN/Creatinine Ratio 21.3 H (9-20) Glucose 141 H (80-116) mg/dL Lactic Acid (0.4-2.0) mmol/L Calcium 9.3 (8.6-10.2) mg/dL Magnesium (1.8-2.5) mg/dL Total Bilirubin 0.7 (0.1-1.3) mg/dL AST 22 (5-25) IU/L ALT 19 (12-36) U/L Alkaline Phosphatase 66 (56-112) IU/L Troponin I (4.0-60.3) pg/mL Total Protein 6.6 (6.0-8.0) g/dL Albumin 2.9 L (3.2-4.6) g/dL Globulin 3.7 g/dL Albumin/Globulin Ratio 0.8 Lipase (73-393) U/L TSH, Ultra Sensitive (0.36-3.74) IU/mL SARS-CoV-2 RNA (MARIA) (NEGATIVE) 09/17/20 09/17/20 09/17/20 Range/Units 07:00 07:00 07:00 WBC (4.5-12.0) X10-3/uL RBC (3.23-5.20) x10(6)uL Hgb (11.5-15.5) g/dL Hct (30.0-51.3) % MCV (80-96) fL MCH (27.7-33.6) pg MCHC (32.2-35.4) g/dL RDW (11.5-15.5) % Plt Count (125-369) X10(3)uL MPV (7.4-10.4) fL Add Manual Diff Neutrophils % (Manual) (46-82) % Band Neutrophils % (0-6) % Lymphocytes % (Manual) (13-37) % Monocytes % (Manual) (4-12) % PT (9.0-11.1) sec INR (1.00-1.24) APTT (24.4-33.2) SECONDS Sodium (135-145) mmol/L Potassium (3.5-5.3) mmol/L Chloride (100-110) mmol/L Carbon Dioxide (21-32) mmol/L BUN (7-18) mg/dL Creatinine (0.55-1.02) mg/dL Est Cr Clr Drug Dosing mL/min Estimated GFR (MDRD) (>60) BUN/Creatinine Ratio (9-20) Glucose (80-116) mg/dL Lactic Acid 2.8 H* (0.4-2.0) mmol/L Calcium (8.6-10.2) mg/dL Magnesium 2.1 (1.8-2.5) mg/dL Total Bilirubin (0.1-1.3) mg/dL AST (5-25) IU/L ALT (12-36) U/L Alkaline Phosphatase (56-112) IU/L Troponin I 52.8 (4.0-60.3) pg/mL Total Protein (6.0-8.0) g/dL Albumin (3.2-4.6) g/dL Globulin g/dL Albumin/Globulin Ratio Lipase 102 (73-393) U/L TSH, Ultra Sensitive 0.60 (0.36-3.74) IU/mL SARS-CoV-2 RNA (MARIA) (NEGATIVE) 09/17/20 Range/Units 07:30 WBC (4.5-12.0) X10-3/uL RBC (3.23-5.20) x10(6)uL Hgb (11.5-15.5) g/dL Hct (30.0-51.3) % MCV (80-96) fL MCH (27.7-33.6) pg MCHC (32.2-35.4) g/dL RDW (11.5-15.5) % Plt Count (125-369) X10(3)uL MPV (7.4-10.4) fL Add Manual Diff Neutrophils % (Manual) (46-82) % Band Neutrophils % (0-6) % Lymphocytes % (Manual) (13-37) % Monocytes % (Manual) (4-12) % PT (9.0-11.1) sec INR (1.00-1.24) APTT (24.4-33.2) SECONDS Sodium (135-145) mmol/L Potassium (3.5-5.3) mmol/L Chloride (100-110) mmol/L Carbon Dioxide (21-32) mmol/L BUN (7-18) mg/dL Creatinine (0.55-1.02) mg/dL Est Cr Clr Drug Dosing mL/min Estimated GFR (MDRD) (>60) BUN/Creatinine Ratio (9-20) Glucose (80-116) mg/dL Lactic Acid (0.4-2.0) mmol/L Calcium (8.6-10.2) mg/dL Magnesium (1.8-2.5) mg/dL Total Bilirubin (0.1-1.3) mg/dL AST (5-25) IU/L ALT (12-36) U/L Alkaline Phosphatase (56-112) IU/L Troponin I (4.0-60.3) pg/mL Total Protein (6.0-8.0) g/dL Albumin (3.2-4.6) g/dL Globulin g/dL Albumin/Globulin Ratio Lipase (73-393) U/L TSH, Ultra Sensitive (0.36-3.74) IU/mL SARS-CoV-2 RNA (MARIA) Negative (NEGATIVE) Meds: Medications Generic Name Dose Route Start Last Admin Trade Name Dipak PRN Reason Stop Dose Admin Piperacillin Sod/Tazobactam 50 mls @ 100 mls/hr 09/17/20 09:00 09/17/20 09:02 Sod 2.25 gm/ Sodium Chloride IV 100 mls/hr Q6H CARLOS Administration Sodium Chloride 1,000 mls @ 100 mls/hr 09/17/20 09:15 Normal Saline IV ASDIRECTED CARLOS Sodium Chloride 10 ml 09/17/20 06:47 09/17/20 09:01 Saline Flush FLUSH 10 ml ASDIRECTED PRN Administration Keep Vein Open Discontinued Medications Generic Name Dose Route Start Last Admin Trade Name Dipak PRN Reason Stop Dose Admin Digoxin 250 mcg 09/17/20 06:49 09/17/20 07:00 Lanoxin IVPUSH 09/17/20 06:50 250 mcg ONETIME ONE Administration Sodium Chloride 500 mls @ 500 mls/hr 09/17/20 06:50 09/17/20 07:00 Normal Saline IV 09/17/20 07:49 500 mls/hr .BOLUS ONE Administration Sodium Chloride 1,000 mls @ 999 mls/hr 09/17/20 07:48 09/17/20 08:00 Normal Saline IV 09/17/20 08:48 999 mls/hr .BOLUS ONE Administration Iopamidol 100 ml 09/17/20 08:02 09/17/20 08:29 Isovue-370 (76%) IV 09/17/20 08:03 50 ml . DIRECTED ONE Administration Ondansetron HCl 4 mg 09/17/20 06:49 09/17/20 07:00 Zofran IVPUSH 09/17/20 06:50 4 mg ONETIME ONE Administration Pantoprazole Sodium 40 mg 09/17/20 06:49 09/17/20 06:58 Protonix Iv IVPUSH 09/17/20 06:50 40 mg ONETIME ONE Administration - Radiology Interpretation Free Text/Narrative:: CT Abd/Pelvis w/ IV contrast: IMPRESSION: 1. Small-bowel obstruction. The exact etiology is uncertain though the distal most small bowel is decompressed. No visible mass or hernia in this area. 2. Distended gallbladder containing stones but no definite ductal dilatation or wall thickening. 3. Bibasilar airspace process probably atelectasis and small effusions. Ascites likely related to the small-bowel obstruction itself. 4. Numerous compression deformities none of which appear to be acute 5. I discussed the above findings at 8:45 a.m. on September 17, [address] Joy Please note that all CT scans at this facility use dose modulation, iterative reconstruction, and/or weight-based dosing when appropriate to reduce radiation dose to as low as reasonably achievable. Dictated by Kirk Quintero MD @ Sep 17 2020 8:39AM - Re-Assessments/Exams Free Text/Narrative Re-Assessment/Exam: 09/17/20 08:54 HR improved to 90's to 100's after 1.5L NS and Digoxin 0.25 mg IV. Rhythm is Afib with intermittent NSR. 09/17/20 09:35 Dr. Crews consulted, advises against NG tube at this time as stomach is not dilated on CT. Recommends admission to Hospitalist with surgical consult. Dr. East agrees to admit patient to [facility]. Departure - Departure Time of Disposition: 09:37 Disposition: Admitted As Inpatient 65 Condition: Fair Clinical Impression: SBO (small bowel obstruction), Atrial fibrillation with RVR, Elevated lactic acid level Cholelithiases Qualifiers: Cholelithiasis location: gallbladder Cholecystitis presence: without cholecystitis Biliary obstruction: without biliary obstruction Qualified Code(s): K80.20 - Calculus of gallbladder without cholecystitis without o bstruction - Discharge Information Referrals: Gab Calix MD [Primary Care Provider] - Forms: ED Department Discharge Sepsis Event Note (ED) - Evaluation Sepsis Screening Result: No Definite Risk - Focused Exam Vital Signs: Vital Signs Temp Pulse Pulse Resp BP Pulse Ox 09/17/20 07:57 35.8 C L 88 18 119/83 99 09/17/20 07:00 128 H 09/17/20 06:15 36.1 C 124 H 26 H 102/83 100 - My Orders Last 24 Hours: My Active Orders 09/17/20 06:46 UA W/MICROSCOPIC [URIN] Stat Blood Culture x2 Reflex Set [OM.PC] Urgent 09/17/20 06:47 EKG Documentation Completion [RC] ASDIRECTED Sodium Chloride 0.9% [Saline Flush] 10 ml FLUSH ASDIRECTED PRN Saline Lock Insert [OM.PC] Routine EKG 12 Lead [EK] Stat 09/17/20 07:00 CULTURE BLOOD [BC] Urgent 09/17/20 07:05 CULTURE BLOOD [BC] Urgent 09/17/20 07:49 EKG Documentation Completion [RC] ASDIRECTED EKG 12 Lead [EK] Stat 09/17/20 07:50 Abdomen Pelvis w Cont [CT] Stat 09/17/20 08:47 Abdomen Ltd [US] Stat 09/17/20 09:00 Piperacillin/Tazobactam [Zosyn] 2.25 gm Sodium Chloride 0.9% [Normal Saline] 50 ml IV Q6H 09/17/20 09:15 Sodium Chloride 0.9% @ 100 MLS/HR(1,000ml) Sodium Chloride 0.9% [Normal Saline] 1,000 ml IV ASDIRECTED 09/17/20 09:18 Admission Status [Patient Status] [ADT] Routine 09/17/20 10:00 LACTIC ACID [CHEM] Routine - Assessment/Plan Last 24 Hours: My Active Orders 09/17/20 06:46 UA W/MICROSCOPIC [URIN] Stat Blood Culture x2 Reflex Set [OM.PC] Urgent 09/17/20 06:47 EKG Documentation Completion [RC] ASDIRECTED Sodium Chloride 0.9% [Saline Flush] 10 ml FLUSH ASDIRECTED PRN Saline Lock Insert [OM.PC] Routine EKG 12 Lead [EK] Stat 09/17/20 07:00 CULTURE BLOOD [BC] Urgent 09/17/20 07:05 CULTURE BLOOD [BC] Urgent 09/17/20 07:49 EKG Documentation Completion [RC] ASDIRECTED EKG 12 Lead [EK] Stat 09/17/20 07:50 Abdomen Pelvis w Cont [CT] Stat 09/17/20 08:47 Abdomen Ltd [US] Stat 09/17/20 09:00 Piperacillin/Tazobactam [Zosyn] 2.25 gm Sodium Chloride 0.9% [Normal Saline] 50 ml IV Q6H 09/17/20 09:15 Sodium Chloride 0.9% @ 100 MLS/HR(1,000ml) Sodium Chloride 0.9% [Normal Saline] 1,000 ml IV ASDIRECTED 09/17/20 09:18 Admission Status [Patient Status] [ADT] Routine 09/17/20 10:00 LACTIC ACID [CHEM] Routine
[2020-09-17] MEDS: Sodium Chloride 0.9% 10 ML Syringe FLUSH PRN ×3 (07:00→14:20)
[2020-09-17] MEDS ORDERED: Sodium Chloride 0.9% 1,000 ML IV ONE (07:48)
[2020-09-17] MEDS ORDERED: Iopamidol 755 Mg/ML 100 ML Bottle IV ONE (08:02)
[2020-09-17] MEDS ORDERED: Piperacillin/Tazobactam 2.25 GM in Sodium Chloride 0.9% 50 ML IV SCH ×4 (09:00)
[2020-09-17] MEDS: Sodium Chloride 0.9% 1,000 ML IV SCH ×2 (09:52→22:17)
[2020-09-17] MEDS: Carvedilol 3.125 MG Tab PO SCH ×2 (11:32→20:48)
--- NOTE | 2020-09-17 11:35 | US ---
INDICATION: Abdominal pain - distended gallbladder with stones on CT of 09/17/20. RIGHT UPPER QUADRANT/GALLBLADDER ULTRASOUND: Utilizing 2D real-time duplex Doppler, spectral analysis and color flow imaging examination of the right upper quadrant was obtained and revealed the gallbladder to be slightly prominent in size with multiple calculi present. It measured 8.9 x 3.3 x 3.7 cm. The calculi are relatively small in size and apparently movable. The wall appeared slightly thickened with the measurement obtained of 4.6 mm. A negative ultrasonographic Duong's sign was noted. No pericholecystic fluid was seen. The liver as partly visualized appeared normal. The pancreas was not adequately visualized due to intestinal gas. The right kidney measured 10 x 3.3 x 3.7 cm and appeared grossly normal. The common bile duct was enlarged at 9.4 mm. No definite calculi was seen in the common bile duct. This size of the common bile duct is slightly enlarged for this patient's age group. The maximum should be no more than 8.6 mm. The IVC was phasic/patent. IMPRESSION: 1. Cholelithiasis with the possibility of cholecystitis - correlate clinically. However, no pericholecystic fluid or positive ultrasonographic Duong's sign was noted. 2. Pancreas is not adequately visualized on ultrasound but appeared grossly normal on the recent CT scan. 3. Common bile duct is slightly enlarged for age. MTDD
--- NOTE | 2020-09-17 13:56 | HP ---
ADMISSION DATE: 09/17/2020 CHIEF COMPLAINT: Partial bowel obstruction. HISTORY OF PRESENT ILLNESS: Mrs. Hunter is an 85-year-old woman from [place], [place], with a history of GERD, macular degeneration, multiple basal cell skin cancers, and a history of lower extremity thrombophlebitis. She came in through the emergency room this morning because of nausea, vomiting, weakness, and abdominal pains. She was evaluated by Dr. Joy and felt to have a partial small bowel obstruction, so she is now admitted to the hospital. The patient states she has not had anything like this before. She says it began 4 days ago with nausea and vomiting and has continued. She has been able to only take sips of liquids. She has not passed any bowel movements since Tuesday, nor has she had any gas passage that she recognizes. She is not currently vomiting and says her abdominal pain is mild and intermittent. She has not had fever, chills, sweats, or symptoms of infection. No known COVID exposures. She has not had any new medications. PAST MEDICAL HISTORY: She has been very healthy for her 85 years. She has had a vaginal hysterectomy for uterine descensus. She is 5, para 4, with 4 normal deliveries and a loss of twins at 5 months in a 1st trimester loss. She has had bilateral cataract surgeries and has macular degeneration with poor vision. She has had a T and A in childhood. She had ORIF of a right ankle fracture many years ago and has no current hardware in place. She has had removal treatment of multiple superficial skin cancers. REVIEW OF SYSTEMS: GENERAL: No seizure, syncope, or recent major weight change. SKIN: Positive for the history of skin cancers, and she has a spot on her lip that she believes is cancer and is scheduled to be reevaluated. HEENT: No recent changes in hearing. Her vision is poor, nearly blind. No sore throat or URI. CHEST: No cough or purulent sputum. No chest pain or palpitations. She does get dyspneic with activities, however. GASTROINTESTINAL: See HPI for abdominal symptoms. GENITOURINARY: No hematuria or UTI symptoms. MUSCULOSKELETAL: No joint inflammation or swelling. She does get bruising over her legs. PSYCHIATRIC: No mood instability. ENDOCRINE: No temperature intolerance. PHYSICAL EXAMINATION: GENERAL: She is alert, comfortable, and a good historian. VITAL SIGNS: Blood pressure 119/83, pulse 88 and irregular, respirations 18, O2 saturation 99% on room air, temperature 96.4, weight 108 pounds stated by the patient. SKIN: A scarred area on the left upper lip and slightly swollen right upper lip. She also has various areas of sun damage and scars on her face. She has some moderate to marked ecchymoses over her shins bilaterally. HEENT: Throat is clear. LUNGS: Clear to the bases with good air movement. BACK: She has slight back kyphosis. HEART: Irregular, in atrial fibrillation pattern. No murmurs heard. ABDOMEN: Normal bowel sounds. Soft and nontender. No distention. No tympany. No masses. No organomegaly. EXTREMITIES: No edema. She has palpable pedal pulses at the posterior tibials bilaterally. I could not feel either dorsalis pedis pulse. NEUROLOGIC: She is a good historian. Motor exam appears symmetric. Gait not tested. LABORATORY DATA: ECG showed atrial fibrillation. White count 16,000, hemoglobin 15.3, segs 86, band 1, lymphs 9, and 4 eos. Electrolytes normal. BUN 34 and creatinine 1.6. Lactic acid 2.8. SARS negative. ASSESSMENT: 1. Nausea, vomiting, and intermittent abdominal discomfort; possible intermittent small bowel obstruction. 2. Dehydration secondary to poor oral intake. 3. Atrial fibrillation, intermittent, and this apparently is new as the patient has not heard anything about it before. 4. Macular degeneration with near blindness. 5. Multiple superficial skin cancers, in various stages of treatment. 6. Chronic kidney disease, stage 3. PLAN: She is admitted to the hospital for IV fluids. She has been given 1 dose of digoxin for atrial fibrillation rate control. We will consider longer-term rate control and possibly anticoagulation. I anticipate a short hospital stay and follow up closely. We will continue to provide palliative care measures for her underlying medical problems. /[id number] ZENIA/GIANFRANCO
[2020-09-17] MEDS: Ondansetron 4 MG/2 ML SDV IVPUSH PRN ×2 (13:57→17:57)
--- NOTE | 2020-09-17 17:10 | CONS ---
DATE OF CONSULTATION: 09/17/2020 HISTORY OF PRESENT ILLNESS: This 85-year-old female is seen in the emergency room today with a 2-day history of nausea with some episodes of vomiting. She says that the symptoms were rather severe last night as well as 3 days ago, although currently she denies having any abdominal pain. She has noticed some constipation recently. Notes that her last bowel movement was 3 days ago. She has also noticed a lack of flatus over the last 2 to 3 days. The patient has been able to eat at home although was eating small amounts and has had some hiccuping as well as the nausea and vomiting. As noted, she denies any abdominal pain and currently says that her nausea is only mild and intermittent. She was evaluated in the emergency room with a CT scan of the abdomen, which was interpreted as showing proximal small-bowel dilation with distal small bowel collapse suggestive of a possible small bowel obstruction. She was also noted to have cholelithiasis and an ultrasound confirmed the cholelithiasis. Patient's past medical history notes her only previous surgery was a hysterectomy about 3 years ago. Her only current medication is low-dose aspirin, vitamins, gabapentin at night, iron, and Protonix. Upon presentation to the emergency room today, the patient was noted to have an irregular heart rate and noted to be in atrial fibrillation. This was a new finding for her. She does not currently smoke. FAMILY HISTORY: Noncontributory. SOCIAL HISTORY: Patient still lives independently in her home. SYSTEM REVIEW: No recent fever, cough, or shortness of breath. She does admit to intermittent constipation but usually controls this with milk of magnesia. DIAGNOSTIC DATA: Laboratory studies showed an elevated serum white blood cell count of 16,000, hemoglobin 15.3. INR is normal. Her BUN and creatinine are slightly elevated. Liver functions are normal including a bilirubin of 0.7. A CT scan report did comment on very slight enlargement of the common bile duct, but no other abnormalities. Lactic acid is slightly elevated at 2.8. Troponin is normal. PHYSICAL EXAMINATION: VITAL SIGNS: Temperature is 35.8 centigrade, pulse 88 and irregular, it was as high as 128 upon presentation. Respirations are nonlabored. Blood pressure is 119/83. GENERAL: The patient is an elderly but alert female. She was in no acute distress. Upon evaluation, she has just finished drinking some juice and has some hiccups but no vomiting from this. HEART: Irregular. LUNGS: Clear. ABDOMEN: Slightly distended, although I do not feel any abdominal masses, and there was no tenderness in the patient's abdomen, even on deep palpation. EXTREMITIES: Currently show no calf tenderness or ankle edema. IMPRESSION: 1. Small-bowel obstruction with the most likely reason being adhesions from previous surgery. 2. Cholelithiasis, likely not related to current symptoms. 3. New onset atrial fibrillation. RECOMMENDATIONS: We would advise observation with hydration and control of the patient's heart rate. We will continue to monitor progress. The patient states that she is under DNR status, although upon questioning did say that she would accept having an operation if this was required to relieve bowel obstruction. /[id number] HERLINDA/GIANFRANCO
--- NOTE | 2020-09-18 06:41 | PCM.SURGPN ---
- General Info Functional Status: Reports: Other (Patient denies any abdominal pain this am) - Review of Systems Pulmonary: Denies: Shortness of Breath Cardiovascular: Denies: Chest Pain Gastrointestinal: Reports: Nausea (Still mild nausea intermittantly), Other (Taking PO fluids pretty well without vomiting - No BM last night). Denies: Vomiting - Patient Data Vitals - Most Recent: Last Vital Signs Temp 97.5 F 09/18/20 05:59 Pulse 72 09/18/20 05:59 Resp 16 09/18/20 05:59 BP 118/71 09/18/20 05:59 Pulse Ox 92 L 09/18/20 05:59 Weight - Most Recent: 109 lb 7 oz I&O - Last 24 Hours: Intake & Output 09/17/20 09/17/20 09/18/20 14:59 22:59 06:59 Intake Total 2310 482 681 Output Total 300 Balance 2009 482 681 Lab Results Last 24 Hrs: Laboratory Results - last 24 hr 09/17/20 09/17/20 09/17/20 Range/Units 07:00 07:00 07:00 WBC 16.0 H (4.5-12.0) X10-3/uL RBC 4.73 (3.23-5.20) x10(6)uL Hgb 15.3 (11.5-15.5) g/dL Hct 44.9 D (30.0-51.3) % MCV 94.9 (80-96) fL MCH 32.4 (27.7-33.6) pg MCHC 34.1 (32.2-35.4) g/dL RDW 12.9 (11.5-15.5) % Plt Count 352 (125-369) X10(3)uL MPV 7.6 (7.4-10.4) fL Add Manual Diff Yes Neutrophils % (Manual) 86 H (46-82) % Band Neutrophils % 1 (0-6) % Lymphocytes % (Manual) 9 L (13-37) % Monocytes % (Manual) 4 (4-12) % PT 10.5 (9.0-11.1) sec INR 0.97 L (1.00-1.24) APTT 23.6 L (24.4-33.2) SECONDS Sodium 139 (135-145) mmol/L Potassium 4.1 (3.5-5.3) mmol/L Chloride 102 (100-110) mmol/L Carbon Dioxide 28 (21-32) mmol/L BUN 34 H (7-18) mg/dL Creatinine 1.6 H (0.55-1.02) mg/dL Est Cr Clr Drug Dosing 18.13 mL/min Estimated GFR (MDRD) 31 L (>60) BUN/Creatinine Ratio 21.3 H (9-20) Glucose 141 H (80-116) mg/dL Lactic Acid (0.4-2.0) mmol/L Calcium 9.3 (8.6-10.2) mg/dL Magnesium (1.8-2.5) mg/dL Total Bilirubin 0.7 (0.1-1.3) mg/dL AST 22 (5-25) IU/L ALT 19 (12-36) U/L Alkaline Phosphatase 66 (56-112) IU/L Troponin I (4.0-60.3) pg/mL Total Protein 6.6 (6.0-8.0) g/dL Albumin 2.9 L (3.2-4.6) g/dL Globulin 3.7 g/dL Albumin/Globulin Ratio 0.8 Lipase (73-393) U/L TSH, Ultra Sensitive (0.36-3.74) IU/mL Urine Color (YELLOW) Urine Appearance (CLEAR) Urine pH (5.0-6.5) Ur Specific [place] (1.010-1.025) Urine Protein (NEGATIVE) mg/dL Urine Glucose (UA) (NORMAL) mg/dL Urine Ketones (NEGATIVE) mg/dL Urine Occult Blood (NEGATIVE) Urine Nitrite (NEGATIVE) Urine Bilirubin (NEGATIVE) Urine Urobilinogen (NEGATIVE) mg/dL Ur Leukocyte Esterase (NEGATIVE) Urine RBC (0-5) Urine WBC (0-5) Ur Squamous Epith Cells (NS,R,O) Urine Bacteria (NS) SARS-CoV-2 RNA (MARIA) (NEGATIVE) 09/17/20 09/17/20 09/17/20 Range/Units 07:00 07:00 07:00 WBC (4.5-12.0) X10-3/uL RBC (3.23-5.20) x10(6)uL Hgb (11.5-15.5) g/dL Hct (30.0-51.3) % MCV (80-96) fL MCH (27.7-33.6) pg MCHC (32.2-35.4) g/dL RDW (11.5-15.5) % Plt Count (125-369) X10(3)uL MPV (7.4-10.4) fL Add Manual Diff Neutrophils % (Manual) (46-82) % Band Neutrophils % (0-6) % Lymphocytes % (Manual) (13-37) % Monocytes % (Manual) (4-12) % PT (9.0-11.1) sec INR (1.00-1.24) APTT (24.4-33.2) SECONDS Sodium (135-145) mmol/L Potassium (3.5-5.3) mmol/L Chloride (100-110) mmol/L Carbon Dioxide (21-32) mmol/L BUN (7-18) mg/dL Creatinine (0.55-1.02) mg/dL Est Cr Clr Drug Dosing mL/min Estimated GFR (MDRD) (>60) BUN/Creatinine Ratio (9-20) Glucose (80-116) mg/dL Lactic Acid 2.8 H* (0.4-2.0) mmol/L Calcium (8.6-10.2) mg/dL Magnesium 2.1 (1.8-2.5) mg/dL Total Bilirubin (0.1-1.3) mg/dL AST (5-25) IU/L ALT (12-36) U/L Alkaline Phosphatase (56-112) IU/L Troponin I 52.8 (4.0-60.3) pg/mL Total Protein (6.0-8.0) g/dL Albumin (3.2-4.6) g/dL Globulin g/dL Albumin/Globulin Ratio Lipase 102 (73-393) U/L TSH, Ultra Sensitive 0.60 (0.36-3.74) IU/mL Urine Color (YELLOW) Urine Appearance (CLEAR) Urine pH (5.0-6.5) Ur Specific [place] (1.010-1.025) Urine Protein (NEGATIVE) mg/dL Urine Glucose (UA) (NORMAL) mg/dL Urine Ketones (NEGATIVE) mg/dL Urine Occult Blood (NEGATIVE) Urine Nitrite (NEGATIVE) Urine Bilirubin (NEGATIVE) Urine Urobilinogen (NEGATIVE) mg/dL Ur Leukocyte Esterase (NEGATIVE) Urine RBC (0-5) Urine WBC (0-5) Ur Squamous Epith Cells (NS,R,O) Urine Bacteria (NS) SARS-CoV-2 RNA (MARIA) (NEGATIVE) 09/17/20 09/17/20 09/17/20 Range/Units 07:30 10:00 22:00 WBC (4.5-12.0) X10-3/uL RBC (3.23-5.20) x10(6)uL Hgb (11.5-15.5) g/dL Hct (30.0-51.3) % MCV (80-96) fL MCH (27.7-33.6) pg MCHC (32.2-35.4) g/dL RDW (11.5-15.5) % Plt Count (125-369) X10(3)uL MPV (7.4-10.4) fL Add Manual Diff Neutrophils % (Manual) (46-82) % Band Neutrophils % (0-6) % Lymphocytes % (Manual) (13-37) % Monocytes % (Manual) (4-12) % PT (9.0-11.1) sec INR (1.00-1.24) APTT (24.4-33.2) SECONDS Sodium (135-145) mmol/L Potassium (3.5-5.3) mmol/L Chloride (100-110) mmol/L Carbon Dioxide (21-32) mmol/L BUN (7-18) mg/dL Creatinine (0.55-1.02) mg/dL Est Cr Clr Drug Dosing mL/min Estimated GFR (MDRD) (>60) BUN/Creatinine Ratio (9-20) Glucose (80-116) mg/dL Lactic Acid 1.2 (0.4-2.0) mmol/L Calcium (8.6-10.2) mg/dL Magnesium (1.8-2.5) mg/dL Total Bilirubin (0.1-1.3) mg/dL AST (5-25) IU/L ALT (12-36) U/L Alkaline Phosphatase (56-112) IU/L Troponin I (4.0-60.3) pg/mL Total Protein (6.0-8.0) g/dL Albumin (3.2-4.6) g/dL Globulin g/dL Albumin/Globulin Ratio Lipase (73-393) U/L TSH, Ultra Sensitive (0.36-3.74) IU/mL Urine Color Yellow (YELLOW) Urine Appearance Clear (CLEAR) Urine pH 6.0 (5.0-6.5) Ur Specific [place] 1.025 (1.010-1.025) Urine Protein Negative (NEGATIVE) mg/dL Urine Glucose (UA) Normal (NORMAL) mg/dL Urine Ketones Negative (NEGATIVE) mg/dL Urine Occult Blood Negative (NEGATIVE) Urine Nitrite Negative (NEGATIVE) Urine Bilirubin Negative (NEGATIVE) Urine Urobilinogen Normal (NEGATIVE) mg/dL Ur Leukocyte Esterase Negative (NEGATIVE) Urine RBC 0-5 (0-5) Urine WBC 0-5 (0-5) Ur Squamous Epith Cells Few H (NS,R,O) Urine Bacteria Occasional H (NS) SARS-CoV-2 RNA (MARIA) Negative (NEGATIVE) Med Orders - Current: Current Medications Carvedilol (Coreg) 3.125 mg PO BID [facility] Last Admin: 09/17/20 20:48 Dose: 3.125 mg Documented by: Sodium Chloride (Normal Saline) 1,000 mls @ 75 mls/hr IV ASDIRECTED [facility] Last Admin: 09/17/20 22:17 Dose: 75 mls/hr Documented by: Ondansetron HCl (Zofran) 4 mg IVPUSH Q4H PRN PRN Reason: Nausea/Vomiting Last Admin: 09/17/20 17:57 Dose: 4 mg Documented by: Sodium Chloride (Saline Flush) 10 ml FLUSH ASDIRECTED PRN PRN Reason: Keep Vein Open Last Admin: 09/17/20 14:20 Dose: 10 ml Documented by: Discontinued Medications Digoxin (Lanoxin) 250 mcg IVPUSH ONETIME ONE Stop: 09/17/20 06:50 Last Admin: 09/17/20 07:00 Dose: 250 mcg Documented by: Sodium Chloride (Normal Saline) 500 mls @ 500 mls/hr IV .BOLUS ONE Stop: 09/17/20 07:49 Last Admin: 09/17/20 07:00 Dose: 500 mls/hr Documented by: Sodium Chloride (Normal Saline) 1,000 mls @ 999 mls/hr IV .BOLUS ONE Stop: 09/17/20 08:48 Last Admin: 09/17/20 08:00 Dose: 999 mls/hr Documented by: Piperacillin Sod/Tazobactam (Sod 2.25 gm/ Sodium Chloride) 50 mls @ 100 mls/hr IV Q6H CARLOS Last Admin: 09/17/20 09:02 Dose: 100 mls/hr Documented by: Iopamidol (Isovue-370 (76%)) 100 ml IV . DIRECTED ONE Stop: 09/17/20 08:03 Last Admin: 09/17/20 08:29 Dose: 50 ml Documented by: Ondansetron HCl (Zofran) 4 mg IVPUSH ONETIME ONE Stop: 09/17/20 06:50 Last Admin: 09/17/20 07:00 Dose: 4 mg Documented by: Pantoprazole Sodium (Protonix Iv) 40 mg IVPUSH ONETIME ONE Stop: 09/17/20 06:50 Last Admin: 09/17/20 06:58 Dose: 40 mg Documented by: - Exam General: Alert, Oriented Lungs: Normal Respiratory Effort GI/Abdominal Exam: Soft, Non-Tender, Other (Minimal distention but seem improved from yesterday). No: Mass Sepsis Event Note - Evaluation Sepsis Screening Result: No Definite Risk - Focused Exam Vital Signs: Vital Signs Temp Pulse Pulse Resp BP BP Pulse Ox 09/18/20 05:59 97.5 F 72 16 118/71 92 L 09/18/20 00:00 97.8 F 78 18 118/80 93 L 09/17/20 20:48 90 125/75 - Problem List Review Problem List Initiated/Reviewed/Updated: Yes - My Orders Last 24 Hours: Active Orders 24 hr Category Date Time Status Admission Status [Patient Status] [ADT] Routine ADT 09/17/20 09:18 Active EKG Documentation Completion [RC] 08 Care 09/17/20 10:27 Active Height and Weight [RC] 06 Care 09/17/20 10:19 Active Notify Provider Consults [RC] ASDIRECTED Care 09/17/20 10:27 Active Oxygen Therapy [RC] PRN Care 09/17/20 10:19 Active Pulse Oximetry [RC] PRN Care 09/17/20 10:20 Active Up With Assistance [RC] ASDIRECTED Care 09/17/20 10:19 Active Up to Chair [RC] ASDIRECTED Care 09/17/20 10:19 Active Vital Signs [RC] QSHIFT Care 09/17/20 10:19 Active Consult to Physician [CONS] Routine Cons 09/17/20 10:26 Ordered Clear Liquid Diet [DIET] Diet 09/17/20 Lunch Active Abdomen Pelvis w Cont [CT] Stat Exams 09/17/20 07:50 Taken CBC WITH AUTO DIFF [HEME] AM Lab 09/18/20 05:11 Ordered COMPREHENSIVE METABOLIC PN,CMP [CHEM] AM Lab 09/18/20 05:11 Ordered CULTURE BLOOD [BC] Urgent Lab 09/17/20 07:00 Received CULTURE BLOOD [BC] Urgent Lab 09/17/20 07:05 Received TSH ULTRASENSITIVE [CHEM] Routine Lab 09/18/20 06:00 Ordered Ondansetron [Zofran] Med 09/17/20 13:48 Active 4 mg IVPUSH Q4H PRN Sodium Chloride 0.9% [Normal Saline] 1,000 ml Med 09/17/20 09:15 Active IV ASDIRECTED Sodium Chloride 0.9% [Saline Flush] Med 09/17/20 06:47 Active 10 ml FLUSH ASDIRECTED PRN carvediloL [Coreg] Med 09/17/20 10:30 Active 3.125 mg PO BID Blood Culture x2 Reflex Set [OM.PC] Urgent Oth 09/17/20 06:46 Ordered Saline Lock Insert [OM.PC] Routine Oth 09/17/20 06:47 Ordered VTE Mechanical Contraindications [AST] Per Unit Routine Oth 09/17/20 10:19 Ordered Resuscitation Status Routine Resus Stat 09/17/20 10:19 Ordered EKG 12 Lead [EK] Routine Ther 09/18/20 08:00 Ordered EKG 12 Lead [EK] Stat Ther 09/17/20 06:47 Ordered EKG 12 Lead [EK] Stat Ther 09/17/20 07:49 Stop Req Medication Orders Carvedilol (Coreg) 3.125 mg PO BID [facility] Last Admin: 09/17/20 20:48 Dose: 3.125 mg Documented by: Admin: 09/17/20 11:32 Dose: 3.125 mg Documented by: EAGLE Sodium Chloride (Normal Saline) 1,000 mls @ 75 mls/hr IV ASDIRECTED [facility] Last Admin: 09/17/20 22:17 Dose: 75 mls/hr Documented by: Infusion: 09/17/20 22:17 Dose: 75 mls/hr Documented by: Infusion: 09/17/20 11:26 Dose: 75 mls/hr Documented by: Admin: 09/17/20 09:52 Dose: 100 mls/hr Documented by: LILLY Ondansetron HCl (Zofran) 4 mg IVPUSH Q4H PRN PRN Reason: Nausea/Vomiting Last Admin: 09/17/20 17:57 Dose: 4 mg Documented by: Admin: 09/17/20 13:57 Dose: 4 mg Documented by: EAGLE Sodium Chloride (Saline Flush) 10 ml FLUSH ASDIRECTED PRN PRN Reason: Keep Vein Open Last Admin: 09/17/20 14:20 Dose: 10 ml Documented by: Admin: 09/17/20 09:01 Dose: 10 ml Documented by: Admin: 09/17/20 07:00 Dose: 10 ml Documented by: MANUEL - Assessment Assessment (Free Text/Narrative):: Small Bowel Obstruction with minimal symptoms - Plan Plan (Free Text/Narrative):: Will try to increase to full liquids PO
[2020-09-18] MEDS ORDERED: Bisacodyl 10 MG Supp RECTAL ONE (08:29)
[2020-09-18] MEDS: Carvedilol 3.125 MG Tab PO SCH ×2 (08:39→20:03)
--- NOTE | 2020-09-18 11:39 | PN ---
DATE SEEN: 09/18/2020 HISTORY: Kelli is an 85-year-old woman who was admitted yesterday from the ER because of abdominal pain and partial small bowel obstruction. She had not had a bowel movement or reported any gas passage for the previous 3 days. On admission, she was also found to be in rapid atrial fibrillation. She was given a dose of digoxin, which slowed her rate, and started on carvedilol. She was given IV overnight and this morning feels better. She ate a full liquid breakfast with oatmeal and juice. She says she felt slightly nauseated afterwards, but no vomiting. She reports she still has not passed any gas. PHYSICAL EXAMINATION: VITAL SIGNS: Blood pressure 118/71, pulse 72 and regular, respirations normal, temp 97.5, weight 109 pounds. HEENT: Mouth is dry. LUNGS: Clear. HEART: Regular without murmur or gallop. She is now back in normal sinus based on EKG. ABDOMEN: Mild distention. Bowel sounds are present. Mild tenderness in the epigastric and right upper quadrant areas. EXTREMITIES: No edema. ASSESSMENT: 1. Partial small bowel obstruction. 2. Cholelithiasis. 3. Recent bout of atrial fibrillation, now in sinus rhythm. PLAN: We will continue full liquid diet. We will also give a Dulcolax suppository and reassess bowel activity for possible diet advancement. /[id number] ZENIA/GIANFRANCO
[2020-09-18] MEDS: Ondansetron 4 MG/2 ML SDV IVPUSH PRN (17:09)
[2020-09-18] MEDS: Sodium Chloride 0.9% 10 ML Syringe FLUSH PRN (17:09)
[2020-09-18] MEDS ORDERED: Aluminum Hydroxide/Magnesium Hydroxide Susp 30 ML Cup PO PRN (19:54)
[2020-09-19] MEDS: Ondansetron 4 MG/2 ML SDV IVPUSH PRN (05:40)
[2020-09-19] MEDS: Sodium Chloride 0.9% 10 ML Syringe FLUSH PRN ×2 (05:47→07:54)
--- NOTE | 2020-09-19 07:49 | PCM.SURGPN ---
- General Info Date of Service: 09/19/20 - Review of Systems General: Reports: Other (Feels a little worse today) Pulmonary: Reports: No Symptoms Cardiovascular: Reports: No Symptoms Gastrointestinal: Reports: Nausea, Other (No BM or Stool). Denies: Vomiting - Patient Data Vitals - Most Recent: Last Vital Signs Temp 97.5 F 09/19/20 05:30 Pulse 68 09/19/20 05:30 Resp 16 09/19/20 05:30 BP 121/65 09/19/20 05:30 Pulse Ox 95 09/19/20 05:30 Weight - Most Recent: 109 lb Ricardo Results Last 24 Hrs: Microbiology 09/17/20 07:00 Aerobic Blood Culture - Preliminary Blood - Venous NO GROWTH AFTER 2 DAYS Anaerobic Blood Culture - Preliminary NO GROWTH AFTER 2 DAYS 09/17/20 07:05 Aerobic Blood Culture - Preliminary Blood - Venous - Lab Draw NO GROWTH AFTER 2 DAYS Anaerobic Blood Culture - Preliminary NO GROWTH AFTER 2 DAYS Med Orders - Current: Current Medications Al Hydroxide/Mg Hydroxide (Mag-Al Susp) 30 ml PO Q2H PRN PRN Reason: Heartburn Carvedilol (Coreg) 3.125 mg PO BID [facility] Last Admin: 09/18/20 20:03 Dose: 3.125 mg Documented by: Sodium Chloride (Normal Saline) 1,000 mls @ 75 mls/hr IV ASDIRECTED [facility] Last Admin: 09/17/20 22:17 Dose: 75 mls/hr Documented by: Ondansetron HCl (Zofran) 4 mg IVPUSH Q4H PRN PRN Reason: Nausea/Vomiting Last Admin: 09/19/20 05:40 Dose: 4 mg Documented by: Sodium Chloride (Saline Flush) 10 ml FLUSH ASDIRECTED PRN PRN Reason: Keep Vein Open Last Admin: 09/19/20 05:47 Dose: 10 ml Documented by: Discontinued Medications Bisacodyl (Dulcolax) 10 mg RECTAL ONETIME ONE Stop: 09/18/20 08:30 Last Admin: 09/18/20 08:42 Dose: 10 mg Documented by: Digoxin (Lanoxin) 250 mcg IVPUSH ONETIME ONE Stop: 09/17/20 06:50 Last Admin: 09/17/20 07:00 Dose: 250 mcg Documented by: Sodium Chloride (Normal Saline) 500 mls @ 500 mls/hr IV .BOLUS ONE Stop: 10/28/20 07:49 Last Admin: 09/17/20 07:00 Dose: 500 mls/hr Documented by: Sodium Chloride (Normal Saline) 1,000 mls @ 999 mls/hr IV .BOLUS ONE Stop: 09/17/20 08:48 Last Admin: 09/17/20 08:00 Dose: 999 mls/hr Documented by: Piperacillin Sod/Tazobactam (Sod 2.25 gm/ Sodium Chloride) 50 mls @ 100 mls/hr IV Q6H CARLOS Last Admin: 09/17/20 09:02 Dose: 100 mls/hr Documented by: Iopamidol (Isovue-370 (76%)) 100 ml IV . DIRECTED ONE Stop: 09/17/20 08:03 Last Admin: 09/17/20 08:29 Dose: 50 ml Documented by: Ondansetron HCl (Zofran) 4 mg IVPUSH ONETIME ONE Stop: 09/17/20 06:50 Last Admin: 09/17/20 07:00 Dose: 4 mg Documented by: Pantoprazole Sodium (Protonix Iv) 40 mg IVPUSH ONETIME ONE Stop: 09/17/20 06:50 Last Admin: 09/17/20 06:58 Dose: 40 mg Documented by: - Exam Lungs: Normal Respiratory Effort GI/Abdominal Exam: Distended (a little more today), Other (minimal tenderness in epigastrium) Sepsis Event Note - Evaluation Sepsis Screening Result: No Definite Risk - Focused Exam Vital Signs: Vital Signs Temp Pulse Pulse Resp BP BP BP 09/19/20 05:30 97.5 F 68 16 121/65 09/18/20 22:00 97.3 F 70 18 113/51 L 09/18/20 20:03 70 113/51 L Pulse Ox 09/19/20 05:30 95 09/18/20 22:00 97 09/18/20 20:03 - Problem List Review Problem List Initiated/Reviewed/Updated: Yes - My Orders Last 24 Hours: Active Orders 24 hr Category Date Time Status NPO Now [Nothing per Oral Now Diet] [DIET] Diet 09/19/20 Lunch Ordered Abdomen 2V AP Flat Upright [CR] Routine Exams 09/19/20 08:00 Ordered Alum Hydroxide/Mag Hydroxide [Mag-Al Susp] Med 09/18/20 19:54 Active 30 ml PO Q2H PRN Convert IV to Saline Lock [OM.PC] Routine Oth 09/18/20 08:28 Ordered EKG 12 Lead [EK] Routine Ther 09/18/20 08:00 Ordered Medication Orders Al Hydroxide/Mg Hydroxide (Mag-Al Susp) 30 ml PO Q2H PRN PRN Reason: Heartburn Carvedilol (Coreg) 3.125 mg PO BID [facility] Last Admin: 09/18/20 20:03 Dose: 3.125 mg Documented by: Admin: 09/18/20 08:39 Dose: 3.125 mg Documented by: Admin: 09/17/20 20:48 Dose: 3.125 mg Documented by: Admin: 09/17/20 11:32 Dose: 3.125 mg Documented by: EAGLE Sodium Chloride (Normal Saline) 1,000 mls @ 75 mls/hr IV ASDIRECTED [facility] Last Admin: 09/17/20 22:17 Dose: 75 mls/hr Documented by: Infusion: 09/17/20 22:17 Dose: 75 mls/hr Documented by: Infusion: 09/17/20 11:26 Dose: 75 mls/hr Documented by: Admin: 09/17/20 09:52 Dose: 100 mls/hr Documented by: LILLY Ondansetron HCl (Zofran) 4 mg IVPUSH Q4H PRN PRN Reason: Nausea/Vomiting Last Admin: 09/19/20 05:40 Dose: 4 mg Documented by: Admin: 09/18/20 17:09 Dose: 4 mg Documented by: Admin: 09/17/20 17:57 Dose: 4 mg Documented by: Admin: 09/17/20 13:57 Dose: 4 mg Documented by: EAGLE Sodium Chloride (Saline Flush) 10 ml FLUSH ASDIRECTED PRN PRN Reason: Keep Vein Open Last Admin: 09/19/20 05:47 Dose: 10 ml Documented by: Admin: 09/18/20 17:09 Dose: 10 ml Documented by: Admin: 09/17/20 14:20 Dose: 10 ml Documented by: Admin: 09/17/20 09:01 Dose: 10 ml Documented by: Admin: 09/17/20 07:00 Dose: 10 ml Documented by: MANUEL - Assessment Assessment (Free Text/Narrative):: Small Bowel obstruction - no sign of opening up yet - Plan Plan (Free Text/Narrative):: Awaiting abd x-rays Will make NPO
[2020-09-19] MEDS: Sodium Chloride 0.9% 1,000 ML IV SCH (07:54)
[2020-09-19] MEDS: Carvedilol 3.125 MG Tab PO SCH (07:59)
--- NOTE | 2020-09-19 08:28 | PCM.PN ---
- General Info Date of Service: 09/19/20 Admission Dx/Problem (Free Text): The patient states this morning that she is a little nauseated. She did receive some Zofran. She is not passing gas and has not had a BM. She doesn't have any abdominal pain at this time. She denies chest pain, fevers, chills, shortness of breath or cough. She denies any palpitations. She has no history of atrial fib that she knows of. - Patient Data Vitals - Most Recent: Last Vital Signs Temp 97.5 F 09/19/20 05:30 Pulse 70 09/19/20 07:59 Resp 16 09/19/20 05:30 BP 123/79 09/19/20 07:59 Pulse Ox 95 09/19/20 05:30 Weight - Most Recent: 109 lb Ricardo Results Last 24 Hours: Microbiology 09/17/20 07:00 Aerobic Blood Culture - Preliminary Blood - Venous NO GROWTH AFTER 2 DAYS Anaerobic Blood Culture - Preliminary NO GROWTH AFTER 2 DAYS 09/17/20 07:05 Aerobic Blood Culture - Preliminary Blood - Venous - Lab Draw NO GROWTH AFTER 2 DAYS Anaerobic Blood Culture - Preliminary NO GROWTH AFTER 2 DAYS Med Orders - Current: Current Medications Al Hydroxide/Mg Hydroxide (Mag-Al Susp) 30 ml PO Q2H PRN PRN Reason: Heartburn Carvedilol (Coreg) 3.125 mg PO BID [facility] Last Admin: 09/19/20 07:59 Dose: 3.125 mg Documented by: Sodium Chloride (Normal Saline) 1,000 mls @ 75 mls/hr IV ASDIRECTED [facility] Last Admin: 09/19/20 07:54 Dose: 75 mls/hr Documented by: Ondansetron HCl (Zofran) 4 mg IVPUSH Q4H PRN PRN Reason: Nausea/Vomiting Last Admin: 09/19/20 05:40 Dose: 4 mg Documented by: Sodium Chloride (Saline Flush) 10 ml FLUSH ASDIRECTED PRN PRN Reason: Keep Vein Open Last Admin: 09/19/20 07:54 Dose: 10 ml Documented by: Discontinued Medications Bisacodyl (Dulcolax) 10 mg RECTAL ONETIME ONE Stop: 09/18/20 08:30 Last Admin: 09/18/20 08:42 Dose: 10 mg Documented by: Digoxin (Lanoxin) 250 mcg IVPUSH ONETIME ONE Stop: 10/28/20 06:50 Last Admin: 09/17/20 07:00 Dose: 250 mcg Documented by: Sodium Chloride (Normal Saline) 500 mls @ 500 mls/hr IV .BOLUS ONE Stop: 09/17/20 07:49 Last Admin: 09/17/20 07:00 Dose: 500 mls/hr Documented by: Sodium Chloride (Normal Saline) 1,000 mls @ 999 mls/hr IV .BOLUS ONE Stop: 09/17/20 08:48 Last Admin: 09/17/20 08:00 Dose: 999 mls/hr Documented by: Piperacillin Sod/Tazobactam (Sod 2.25 gm/ Sodium Chloride) 50 mls @ 100 mls/hr IV Q6H [facility] Last Admin: 09/17/20 09:02 Dose: 100 mls/hr Documented by: Iopamidol (Isovue-370 (76%)) 100 ml IV . DIRECTED ONE Stop: 09/17/20 08:03 Last Admin: 09/17/20 08:29 Dose: 50 ml Documented by: Ondansetron HCl (Zofran) 4 mg IVPUSH ONETIME ONE Stop: 09/17/20 06:50 Last Admin: 09/17/20 07:00 Dose: 4 mg Documented by: Pantoprazole Sodium (Protonix Iv) 40 mg IVPUSH ONETIME ONE Stop: 09/17/20 06:50 Last Admin: 09/17/20 06:58 Dose: 40 mg Documented by: - Exam General: Alert, Oriented, Cooperative Neck: Supple Lungs: Clear to Auscultation, Normal Respiratory Effort. No: Crackles, Rales, Rhonchi Cardiovascular: Regular Rate, Regular Rhythm, No Murmurs GI/Abdominal Exam: Distended, Abnormal Bowel Sounds. No: Rebound, Tender Extremities: No Pedal Edema Psy/Mental Status: Alert, Normal Affect, Normal Mood Sepsis Event Note - Evaluation Sepsis Screening Result: No Definite Risk - Focused Exam Vital Signs: Vital Signs Temp Pulse Pulse Resp BP BP BP 09/19/20 07:59 70 123/79 09/19/20 05:30 97.5 F 68 16 121/65 09/18/20 22:00 97.3 F 70 18 113/51 L Pulse Ox 09/19/20 07:59 09/19/20 05:30 95 09/18/20 22:00 97 - Problem List & Annotations (1) Acute kidney injury SNOMED Code(s): 40127611, 95847485 Code(s): N17.9 - ACUTE KIDNEY FAILURE, UNSPECIFIED Status: Acute Current Visit: Yes (2) Palliative care status SNOMED Code(s): 874880766 Code(s): Z51.5 - ENCOUNTER FOR PALLIATIVE CARE Status: Acute Current Visit: Yes (3) Atrial fibrillation with RVR SNOMED Code(s): 556189339640113 Code(s): I48.91 - UNSPECIFIED ATRIAL FIBRILLATION Status: Acute Current Visit: Yes (4) Cholelithiases SNOMED Code(s): 877041677 Code(s): K80.20 - CALCULUS OF GALLBLADDER W/O CHOLECYSTITIS W/O OBSTRUCTION Status: Acute Current Visit: Yes Qualifiers: Cholelithiasis location: gallbladder Cholecystitis presence: without cholecystitis Biliary obstruction: without biliary obstruction Qualified Code(s): K80.20 - Calculus of gallbladder without cholecystitis without obstruction (5) Elevated lactic acid level SNOMED Code(s): 8820967 Code(s): R79.89 - OTHER SPECIFIED ABNORMAL FINDINGS OF BLOOD CHEMISTRY Status: Acute Current Visit: Yes (6) SBO (small bowel obstruction) SNOMED Code(s): 576773333 Code(s): K56.609 - UNSP INTESTNL OBST, UNSP TO PARTIAL VERSUS COMPLETE OBST Status: Acute Current Visit: Yes - Problem List Review Problem List Initiated/Reviewed/Updated: Yes - My Orders Last 24 Hours: My Active Orders 09/19/20 08:08 EKG 12 Lead [EK] Routine 09/19/20 08:09 EKG Documentation Completion [RC] ASDIRECTED - Plan Plan:: 1. Apparently the IV fluids were stopped last night. I restarted them today because she is not tolerating any by mouth's 2. DC PO liquids except meds with sips according to the surgeon. 3. Repeat abdominal x-rays 4. Discussed care with the surgeon. He believes she may need an operation because she's not getting better. He will check out to another surgeon today because he is leaving and then we will find out the plan. 5. Heart rate seems to be regular will repeat an EKG today. 6. Lactic acid and kidney function has improved.
--- NOTE | 2020-09-19 10:59 | CR ---
INDICATION: Followup small bowel obstruction. ABDOMEN, TWO VIEW: Three images of the abdomen in supine and upright projections reveal no evidence of free air. There remain slightly distended loops of proximal-mid small bowel with air-fluid levels compatible with small bowel obstruction. Increased density in the pelvis may represent ascites but should be correlated clinically. There does not appear to be significant gas or stool in the colon suggesting a relatively longstanding distal small bowel obstruction. A calcific density is again noted overlying the upper pole of the right kidney and it is noted on the previous CT scan to be within the medial cortex of the upper pole of the right kidney, most likely representing a dystrophic calcification due to previous infection or possibly an involuted cyst or complicated cyst. Aortic calcifications are noted. Iliac artery calcifications and femoral artery calcifications are noted. Dextroconcave scoliosis of the upper middle lumbar spine is noted. IMPRESSION: 1. Findings remain compatible with a mid to distal small bowel obstruction which appears to be longstanding since there is no gas or stool in the colon noted at this time. 2. Renal calcification upper pole right kidney, most likely due to previous infection. 3. ASD. 4. Probable ascites but should be correlated clinically with increased density in the pelvis and lowermost abdomen. 5. Lumbar scoliosis. 6. Parenchymal changes noted at the lung bases, possibly with minimal pleural fluid which may be on the basis of bibasilar pneumonia and pleuritis but should be correlated clinically. 7. Large fixed hiatal hernia with air-fluid level is again noted. MTDD
--- NOTE | 2020-09-19 16:35 | PCM.SN.2 ---
- Free Text/Narrative Note: Subjective-patient states she is more nauseated and more bloated. Still not passing any flatus or stool. She denies chest pain, fevers or shortness of breath. Objective-abdomen is definitely more distended and mildly uncomfortable to palpation. No rebound or guarding. Assessment-small bowel obstruction Plan-NG tube to low intermittent suction, SCD, I detected Dr. Ortiz to make sure he was where the patient and he is. Consider Lovenox if she does not get an operation.
--- NOTE | 2020-09-19 17:06 | PCM.CONS ---
H&P History of Present Illness - General Date of Service: 09/19/20 Admit Problem/Dx: The patient states this morning that she is a little nauseated. She did receive some Zofran. She is not passing gas and has not had a BM. She doesn't have any abdominal pain at this time. She denies chest pain, fevers, chills, shortness of breath or cough. She denies any palpitations. She has no history of atrial fib that she knows of. - History of Present Illness Initial Comments - Free Text/Narative: Pt was admitted earlier this week with a hx of some abd discomfort. On exam she at that time she had some evidence of an small bowel obstruction. The only sx she has had has been some nausea. She has been unable to vomit since this started this weekend. Several trials of liquids have not been tolerated as she notes some distention. She has not passed gas since admission. Last bm was on Tuesday. She really did not have any abd discomfort until this morning. This has gotten progressively worse during the day. A repeat KUB demonstrated continued evidence of o bstruction. On placement of a NGT feculent material has been obtained. Initial wbc was elevated. This has corrected. She had a short lived episode of afib which has not been noted since. Pt lives at home. No sig medical problems short of some skin cancer. Only surgical history is significant for hysterectomy. - Related Data Allergies/Adverse Reactions: Allergies Allergy/AdvReac Type Severity Reaction Status Date / Time No Known Allergies Allergy Verified 09/17/20 11:25 Home Medications: Home Meds Aspirin [Adult Low Dose Aspirin EC] 81 mg PO DAILY 08/09/15 [History] Multivitamin 1 tab PO DAILY 09/17/20 [History] Pantoprazole Sodium [Protonix] 40 mg PO DAILY 09/17/20 [History] Past Medical History HEENT History: Reports: Cataract, Macular Degeneration, Retinal Detachment Other HEENT History: PSEUDOPHAKIA; HYPEROPIA; ASTIGMATISM; PRESBYOPIA Cardiovascular History: Reports: None Respiratory History: Reports: None Gastrointestinal History: Reports: GERD Genitourinary History: APPLICATION SUPPORT LEAD History: Reports: Musculoskeletal History: Reports: Arthritis, Back Pain, Chronic Other Musculoskeletal History: compression fx to back Neurological History: Reports: Vertigo Psychiatric History: Reports: None Endocrine/Metabolic History: Reports: None Hematologic History: Reports: Anemia, Iron Deficiency Immunologic History: Reports: None Oncologic (Cancer) History: Reports: None Dermatologic History: Reports: None Other Dermatologic History: Gets frequent rashes & sores. - Infectious Disease History Infectious Disease History: Reports: Chicken Pox - Past Surgical History Head Surgeries/Procedures: Reports: None HEENT Surgical History: Reports: Cataract Surgery, Detached Retina, Laser Surgery GI Surgical History: Reports: Colonoscopy Female Surgical History: Reports: Hysterectomy Social & Family History - Family History Family Medical History: Noncontributory - Tobacco Use Tobacco Use Status *Q: Never Tobacco User Used Tobacco, but Quit: Yes Month/Year Tobacco Last Used: 1979 - Caffeine Use Caffeine Use: Reports: Coffee Other Caffeine Use: 4-6 cups a day - Recreational Drug Use Recreational Drug Use: No H&P Review of Systems - Review of Systems: Review Of Systems: See Below General: Reports: Fever Pulmonary: Reports: No Symptoms Cardiovascular: Reports: No Symptoms Gastrointestinal: Reports: Abdominal Pain, Distension, Nausea. Denies: Flatus Exam - Exam Exam: See Below - Vital Signs Vital Signs: Last Vital Signs Temp 97.4 F 09/19/20 15:28 Pulse 68 09/19/20 15:28 Resp 16 09/19/20 15:28 BP 107/66 09/19/20 15:28 Pulse Ox 92 L 09/19/20 15:28 Weight: 49.442 kg - Exam General: Alert, Oriented, Cooperative, Mild Distress Lungs: Clear to Auscultation, Normal Respiratory Effort Cardiovascular: Regular Rate, Regular Rhythm GI/Abdominal Exam: Soft, Distended, Tender, Abnormal Bowel Sounds (rushes heard on occasion ). No: Guarding, Rigid, Rebound - Patient Data Result Diagrams: 09/18/20 06:25 09/18/20 06:25 Ricardo Results Last 24 hrs: Microbiology 09/17/20 07:00 Aerobic Blood Culture - Preliminary Blood - Venous NO GROWTH AFTER 2 DAYS Anaerobic Blood Culture - Preliminary NO GROWTH AFTER 2 DAYS 09/17/20 07:05 Aerobic Blood Culture - Preliminary Blood - Venous - Lab Draw NO GROWTH AFTER 2 DAYS Anaerobic Blood Culture - Preliminary NO GROWTH AFTER 2 DAYS Sepsis Event Note - Evaluation Sepsis Screening Result: No Definite Risk - Focused Exam Vital Signs: Vital Signs Temp Pulse Pulse Resp BP BP BP 09/19/20 15:28 97.4 F 68 16 107/66 09/19/20 07:59 70 123/79 09/19/20 07:50 97.7 F 70 16 123/67 09/19/20 05:30 97.5 F 68 16 121/65 Pulse Ox Pulse Ox 09/19/20 15:28 92 L 09/19/20 07:59 09/19/20 07:50 94 L 94 L 09/19/20 05:30 95 *Q Meaningful Use (ADM) - VTE *Q VTE Mechanical Contraindications *Q: Bilateral Lower Ischemia Consult PN Assessment/Plan Procedures: Procedures ANESTH LOW INTESTINE SCOPE (03/15/17) ASSAY OF FERRITIN (02/13/17) ASSAY OF LACTIC ACID (02/13/17) ASSAY OF NATRIURETIC PEPTIDE (02/13/17) ASSAY OF TROPONIN QUANT (02/13/17) ASSAY THYROID STIM HORMONE (02/13/17) BLOOD GASES ANY COMBINATION (02/13/17) BLOOD TRANSFUSION SERVICE (02/13/17) BLOOD TYPING SEROLOGIC ABO (02/13/17) BLOOD TYPING SEROLOGIC RH(D) (02/13/17) CHEST X-RAY 2VW FRONTAL&LATL (02/13/17) COMPATIBILITY TEST ANTIGLOB (02/13/17) COMPATIBILITY TEST SPIN (02/13/17) COMPLETE CBC W/AUTO DIFF WBC (02/13/17) COMPREHEN METABOLIC PANEL (02/13/17) DIAGNOSTIC COLONOSCOPY (03/15/17) EGD BIOPSY SINGLE/MULTIPLE (03/15/17) ELECTROCARDIOGRAM TRACING (02/13/17) EMERGENCY DEPT VISIT (10/13/17) EMERGENCY DEPT VISIT (02/13/17) EMERGENCY DEPT VISIT (02/13/17) EMERGENCY DEPT VISIT (08/09/15) EMERGENCY DEPT VISIT (08/09/15) FIBRIN DEGRADATION QUANT (02/13/17) IMMUNOHISTO ANTB 1ST STAIN (03/15/17) OCCULT BLD FECES 1-3 TESTS (02/13/17) RBC ANTIBODY SCREEN (02/13/17) ROUTINE VENIPUNCTURE (02/13/17) THER/PROPH/DIAG INJ SC/IM (10/13/17) TISSUE EXAM BY PATHOLOGIST (03/15/17) TTE W/DOPPLER COMPLETE (02/18/17) URINALYSIS AUTO W/SCOPE (02/13/17) WITHDRAWAL OF ARTERIAL BLOOD (02/13/17) (1) SBO (small bowel obstruction) SNOMED Code(s): 794117434 Code(s): K56.609 - UNSP INTESTNL OBST, UNSP TO PARTIAL VERSUS COMPLETE OBST Current Visit: Yes Problem List Initiated/Reviewed/Updated: Yes Plan: This patient appears at this time to require a laparotomy to treat her obstruction.The procedure and risks of the operation were explained to the patient and was explained to her POA as well. They include bleeding, infection, intestinal resection, need for a ventilator, as well as the potential of . Currently the covid situation has resulted in a lack of beds in [place]. I do believe that she can be safely handled here at this facility. They both expressed understanding and asks us to proceed.
--- NOTE | 2020-09-19 19:38 | PCM.OPNOTE ---
- General Post-Op/Procedure Note Date of Surgery/Procedure: 09/19/20 Operative Procedure(s): ex lap with lysis of adhesion Findings: single adhesion in the pelvis. gallbladder normal in appearance. Pre Op Diagnosis: small bowel obstruction Post-Op Diagnosis: Same Anesthesia Technique: General ET Tube, Local (20 ml 1% lido with epi/0.5% buvipicaine) Primary Surgeon: Harinder Ortiz Anesthesia Provider: Gab Cardona Pathology: none Fluid Replacement, Intraop: 800 Output, Urine Amount: 165 EBL in mLs: 30 Complications: None Condition: Good Free Text/Narrative:: see dictation [id number]
[2020-09-19] MEDS ORDERED: Lidocaine 2% 5 ML SDV INJECT ONE (19:50)
[2020-09-19] MEDS ORDERED: Dexamethasone 4 MG/ML 5 ML MDV IVPUSH ONE (19:50)
[2020-09-19] MEDS ORDERED: Lactated Ringers 1,000 ML IV ONE (19:50)
[2020-09-19] MEDS ORDERED: Sugammadex Sodium 200 MG/2 ML VIAL IV ONE (19:50)
[2020-09-19] MEDS ORDERED: Rocuronium 50 MG/5 ML Vial IV ONE (19:50)
[2020-09-19] MEDS ORDERED: fentaNYL 100 MCG/2 ML SDV IV ONE (19:50)
[2020-09-19] MEDS ORDERED: ceFAZolin 1 GM Vial IV ONE (19:50)
[2020-09-19] MEDS ORDERED: Propofol 200 MG/20 ML SDV IV ONE (19:50)
[2020-09-19] MEDS ORDERED: Succinylcholine 200 MG/10 ML MDV IV ONE (19:50)
[2020-09-19] MEDS: Pantoprazole 40 MG Vial IVPUSH SCH (20:25)
[2020-09-19] MEDS: Lactated Ringers 1,000 ML IV SCH (20:39)
[2020-09-19] MEDS: Morphine 2 MG/ML SYRINGE IVPUSH PRN (23:41)
[2020-09-20] MEDS: Morphine 2 MG/ML SYRINGE IVPUSH PRN ×5 (02:10→23:28)
[2020-09-20] MEDS: Lactated Ringers 1,000 ML IV SCH (04:18)
--- NOTE | 2020-09-20 08:05 | PCM.PN ---
- General Info Date of Service: 09/20/20 Admission Dx/Problem (Free Text): I was asked to follow this patient by Dr. Ortiz for her medical conditions. She underwent a laparotomy last night for small bowel obstruction. Patient states she's doing well today. She of course has some abdominal pain from incision. Her distention is gone and she denies nausea, vomiting, fevers, chills. Cutler catheter placed. Patient states she's not pass a flatus or moved her bowels as of yet. Overall she feels much better. - Patient Data Vitals - Most Recent: Last Vital Signs Temp 97.7 F 09/20/20 04:00 Pulse 79 09/20/20 04:00 Resp 16 09/20/20 04:00 BP 129/63 09/20/20 04:00 Pulse Ox 96 09/20/20 04:00 Weight - Most Recent: 110 lb 5 oz I&O - Last 24 Hours: Intake & Output 09/19/20 09/20/20 09/20/20 22:59 06:59 14:59 Intake Total 800 1287 Output Total 165 670 Balance 635 617 Lab Results Last 24 Hours: Laboratory Results - last 24 hr 09/20/20 09/20/20 Range/Units 06:30 06:30 WBC 8.7 (4.5-12.0) X10-3/uL RBC 4.17 (3.23-5.20) x10(6)uL Hgb 13.5 (11.5-15.5) g/dL Hct 39.4 (30.0-51.3) % MCV 94.4 (80-96) fL MCH 32.2 (27.7-33.6) pg MCHC 34.2 (32.2-35.4) g/dL RDW 12.9 (11.5-15.5) % Plt Count 285 (125-369) X10(3)uL MPV 7.5 (7.4-10.4) fL Add Manual Diff Yes Neutrophils % (Manual) 72 (46-82) % Band Neutrophils % 9 H (0-6) % Lymphocytes % (Manual) 11 L (13-37) % Monocytes % (Manual) 8 (4-12) % Sodium 142 (135-145) mmol/L Potassium 3.8 (3.5-5.3) mmol/L Chloride 107 (100-110) mmol/L Carbon Dioxide 25 (21-32) mmol/L BUN 25 H (7-18) mg/dL Creatinine 1.1 H (0.55-1.02) mg/dL Est Cr Clr Drug Dosing 26.37 mL/min Estimated GFR (MDRD) 47 L (>60) BUN/Creatinine Ratio 22.7 H (9-20) Glucose 104 (80-116) mg/dL Calcium 7.7 L (8.6-10.2) mg/dL Total Bilirubin 0.5 (0.1-1.3) mg/dL AST 20 D (5-25) IU/L ALT 17 (12-36) U/L Alkaline Phosphatase 45 L (56-112) IU/L Total Protein 4.6 L (6.0-8.0) g/dL Albumin 1.9 L (3.2-4.6) g/dL Globulin 2.7 g/dL Albumin/Globulin Ratio 0.7 Ricardo Results Last 24 Hours: Microbiology 09/17/20 07:05 Aerobic Blood Culture - Preliminary Blood - Venous - Lab Draw NO GROWTH AFTER 3 DAYS Anaerobic Blood Culture - Preliminary NO GROWTH AFTER 3 DAYS 09/17/20 07:00 Aerobic Blood Culture - Preliminary Blood - Venous NO GROWTH AFTER 3 DAYS Anaerobic Blood Culture - Preliminary NO GROWTH AFTER 3 DAYS Med Orders - Current: Current Medications Lactated Ringer's (Ringers, Lactated) 1,000 mls @ 125 mls/hr IV ASDIRECTED [facility] Last Admin: 09/20/20 04:18 Dose: 125 mls/hr Documented by: Morphine Sulfate (Morphine) 1 mg IVPUSH Q1H PRN PRN Reason: Pain Last Admin: 09/20/20 06:14 Dose: 1 mg Documented by: Ondansetron HCl (Zofran) 4 mg IVPUSH Q4H PRN PRN Reason: Nausea/Vomiting Last Admin: 09/19/20 05:40 Dose: 4 mg Documented by: Pantoprazole Sodium (Protonix Iv) 40 mg IVPUSH Q24H [facility] Last Admin: 09/19/20 20:25 Dose: 40 mg Documented by: Discontinued Medications Al Hydroxide/Mg Hydroxide (Mag-Al Susp) 30 ml PO Q2H PRN PRN Reason: Heartburn Bisacodyl (Dulcolax) 10 mg RECTAL ONETIME ONE Stop: 09/18/20 08:30 Last Admin: 09/18/20 08:42 Dose: 10 mg Documented by: Carvedilol (Coreg) 3.125 mg PO BID [facility] Last Admin: 09/19/20 07:59 Dose: 3.125 mg Documented by: Digoxin (Lanoxin) 250 mcg IVPUSH ONETIME ONE Stop: 09/17/20 06:50 Last Admin: 09/17/20 07:00 Dose: 250 mcg Documented by: Sodium Chloride (Normal Saline) 500 mls @ 500 mls/hr IV .BOLUS ONE Stop: 09/17/20 07:49 Last Admin: 09/17/20 07:00 Dose: 500 mls/hr Documented by: Sodium Chloride (Normal Saline) 1,000 mls @ 999 mls/hr IV .BOLUS ONE Stop: 09/17/20 08:48 Last Admin: 09/17/20 08:00 Dose: 999 mls/hr Documented by: Piperacillin Sod/Tazobactam (Sod 2.25 gm/ Sodium Chloride) 50 mls @ 100 mls/hr IV Q6H [facility] Last Admin: 09/17/20 09:02 Dose: 100 mls/hr Documented by: Sodium Chloride (Normal Saline) 1,000 mls @ 75 mls/hr IV ASDIRECTED [facility] Last Admin: 09/19/20 07:54 Dose: 75 mls/hr Documented by: Iopamidol (Isovue-370 (76%)) 100 ml IV . DIRECTED ONE Stop: 09/17/20 08:03 Last Admin: 09/17/20 08:29 Dose: 50 ml Documented by: Ondansetron HCl (Zofran) 4 mg IVPUSH ONETIME ONE Stop: 09/17/20 06:50 Last Admin: 09/17/20 07:00 Dose: 4 mg Documented by: Pantoprazole Sodium (Protonix Iv) 40 mg IVPUSH ONETIME ONE Stop: 09/17/20 06:50 Last Admin: 09/17/20 06:58 Dose: 40 mg Documented by: Sodium Chloride (Saline Flush) 10 ml FLUSH ASDIRECTED PRN PRN Reason: Keep Vein Open Last Admin: 09/19/20 07:54 Dose: 10 ml Documented by: - Exam General: Alert, Oriented, Cooperative HEENT: Other (NG tube in place) Lungs: Clear to Auscultation, Normal Respiratory Effort, Crackles, Rales, Rhonchi Cardiovascular: Regular Rate, Regular Rhythm, No Murmurs GI/Abdominal Exam: Soft, No Distention, Tender (Due to incision) Extremities: No Pedal Edema Psy/Mental Status: Alert, Normal Affect, Normal Mood Sepsis Event Note - Evaluation Sepsis Screening Result: No Definite Risk - Focused Exam Vital Signs: Vital Signs Temp Pulse Resp BP BP Pulse Ox 09/20/20 04:00 97.7 F 79 16 129/63 96 09/20/20 02:00 97.4 F 76 14 122/57 L 98 09/20/20 00:00 97.7 F 76 15 130/66 98 09/19/20 22:00 73 16 95 09/19/20 21:20 97.3 F 69 16 160/90 H 99 09/19/20 20:15 64 15 160/90 H 96 - Problem List & Annotations (1) Acute kidney injury SNOMED Code(s): 39448336, 46603883 Code(s): N17.9 - ACUTE KIDNEY FAILURE, UNSPECIFIED Status: Acute Current Visit: Yes (2) Palliative care status SNOMED Code(s): 120930686 Code(s): Z51.5 - ENCOUNTER FOR PALLIATIVE CARE Status: Acute Current Visit: Yes (3) Atrial fibrillation with RVR SNOMED Code(s): 736171012243144 Code(s): I48.91 - UNSPECIFIED ATRIAL FIBRILLATION Status: Acute Current Visit: Yes (4) Cholelithiases SNOMED Code(s): 248816836 Code(s): K80.20 - CALCULUS OF GALLBLADDER W/O CHOLECYSTITIS W/O OBSTRUCTION Status: Acute Current Visit: Yes Qualifiers: Cholelithiasis location: gallbladder Cholecystitis presence: without cholecystitis Biliary obstruction: without biliary obstruction Qualified Code(s): K80.20 - Calculus of gallbladder without cholecystitis without obstruction (5) Elevated lactic acid level SNOMED Code(s): 4275757 Code(s): R79.89 - OTHER SPECIFIED ABNORMAL FINDINGS OF BLOOD CHEMISTRY Status: Acute Current Visit: Yes (6) SBO (small bowel obstruction) SNOMED Code(s): 697861500 Code(s): K56.609 - UNSP INTESTNL OBST, UNSP TO PARTIAL VERSUS COMPLETE OBST Status: Acute Current Visit: Yes - Problem List Review Problem List Initiated/Reviewed/Updated: Yes - My Orders Last 24 Hours: My Active Orders 09/19/20 08:08 EKG 12 Lead [EK] Routine 09/19/20 16:34 SCD [Sequential Compression Device] [OM.PC] Routine - Plan Plan:: 1. Patient stable today. She has not gone back into A. fib. 2. Kidney function is doing well and is not worsened after the surgery. 3. She has a history of iron deficiency anemia. But her hemoglobin after surgery is excellent. 4. Continue to follow her kidney function and her cardiac condition. 5. No changes in care at this point from my perspective.
--- NOTE | 2020-09-20 09:12 | PCM.SURGPN ---
- General Info Date of Service: 09/20/20 POD#: 1 Functional Status: Reports: Urinating. Denies: New Symptoms - Review of Systems General: Reports: No Symptoms Pulmonary: Reports: No Symptoms Cardiovascular: Reports: No Symptoms Gastrointestinal: Reports: Abdominal Pain (with movement ) Skin: Reports: No Symptoms - Patient Data Vitals - Most Recent: Last Vital Signs Temp 97.8 F 09/20/20 08:00 Pulse 78 09/20/20 08:00 Resp 17 09/20/20 08:00 BP 120/55 L 09/20/20 08:00 Pulse Ox 89 L 09/20/20 08:45 Weight - Most Recent: 50.037 kg I&O - Last 24 Hours: Intake & Output 09/19/20 09/20/20 09/20/20 22:59 06:59 14:59 Intake Total 800 1287 Output Total 165 670 Balance 635 617 Lab Results Last 24 Hrs: Laboratory Results - last 24 hr 09/20/20 09/20/20 Range/Units 06:30 06:30 WBC 8.7 (4.5-12.0) X10-3/uL RBC 4.17 (3.23-5.20) x10(6)uL Hgb 13.5 (11.5-15.5) g/dL Hct 39.4 (30.0-51.3) % MCV 94.4 (80-96) fL MCH 32.2 (27.7-33.6) pg MCHC 34.2 (32.2-35.4) g/dL RDW 12.9 (11.5-15.5) % Plt Count 285 (125-369) X10(3)uL MPV 7.5 (7.4-10.4) fL Add Manual Diff Yes Neutrophils % (Manual) 72 (46-82) % Band Neutrophils % 9 H (0-6) % Lymphocytes % (Manual) 11 L (13-37) % Monocytes % (Manual) 8 (4-12) % Sodium 142 (135-145) mmol/L Potassium 3.8 (3.5-5.3) mmol/L Chloride 107 (100-110) mmol/L Carbon Dioxide 25 (21-32) mmol/L BUN 25 H (7-18) mg/dL Creatinine 1.1 H (0.55-1.02) mg/dL Est Cr Clr Drug Dosing 26.37 mL/min Estimated GFR (MDRD) 47 L (>60) BUN/Creatinine Ratio 22.7 H (9-20) Glucose 104 (80-116) mg/dL Calcium 7.7 L (8.6-10.2) mg/dL Total Bilirubin 0.5 (0.1-1.3) mg/dL AST 20 D (5-25) IU/L ALT 17 (12-36) U/L Alkaline Phosphatase 45 L (56-112) IU/L Total Protein 4.6 L (6.0-8.0) g/dL Albumin 1.9 L (3.2-4.6) g/dL Globulin 2.7 g/dL Albumin/Globulin Ratio 0.7 Ricardo Results Last 24 Hrs: Microbiology 09/17/20 07:05 Aerobic Blood Culture - Preliminary Blood - Venous - Lab Draw NO GROWTH AFTER 3 DAYS Anaerobic Blood Culture - Preliminary NO GROWTH AFTER 3 DAYS 09/17/20 07:00 Aerobic Blood Culture - Preliminary Blood - Venous NO GROWTH AFTER 3 DAYS Anaerobic Blood Culture - Preliminary NO GROWTH AFTER 3 DAYS Med Orders - Current: Current Medications Lactated Ringer's (Ringers, Lactated) 1,000 mls @ 125 mls/hr IV ASDIRECTED [facility] Last Admin: 09/20/20 04:18 Dose: 125 mls/hr Documented by: Morphine Sulfate (Morphine) 1 mg IVPUSH Q1H PRN PRN Reason: Pain Last Admin: 09/20/20 06:14 Dose: 1 mg Documented by: Ondansetron HCl (Zofran) 4 mg IVPUSH Q4H PRN PRN Reason: Nausea/Vomiting Last Admin: 09/19/20 05:40 Dose: 4 mg Documented by: Pantoprazole Sodium (Protonix Iv) 40 mg IVPUSH Q24H [facility] Last Admin: 09/19/20 20:25 Dose: 40 mg Documented by: Discontinued Medications Al Hydroxide/Mg Hydroxide (Mag-Al Susp) 30 ml PO Q2H PRN PRN Reason: Heartburn Bisacodyl (Dulcolax) 10 mg RECTAL ONETIME ONE Stop: 09/18/20 08:30 Last Admin: 09/18/20 08:42 Dose: 10 mg Documented by: Carvedilol (Coreg) 3.125 mg PO BID [facility] Last Admin: 09/19/20 07:59 Dose: 3.125 mg Documented by: Digoxin (Lanoxin) 250 mcg IVPUSH ONETIME ONE Stop: 09/17/20 06:50 Last Admin: 09/17/20 07:00 Dose: 250 mcg Documented by: Sodium Chloride (Normal Saline) 500 mls @ 500 mls/hr IV .BOLUS ONE Stop: 09/17/20 07:49 Last Admin: 09/17/20 07:00 Dose: 500 mls/hr Documented by: Sodium Chloride (Normal Saline) 1,000 mls @ 999 mls/hr IV .BOLUS ONE Stop: 09/17/20 08:48 Last Admin: 09/17/20 08:00 Dose: 999 mls/hr Documented by: Piperacillin Sod/Tazobactam (Sod 2.25 gm/ Sodium Chloride) 50 mls @ 100 mls/hr IV Q6H [facility] Last Admin: 09/17/20 09:02 Dose: 100 mls/hr Documented by: Sodium Chloride (Normal Saline) 1,000 mls @ 75 mls/hr IV ASDIRECTED [facility] Last Admin: 09/19/20 07:54 Dose: 75 mls/hr Documented by: Iopamidol (Isovue-370 (76%)) 100 ml IV . DIRECTED ONE Stop: 09/17/20 08:03 Last Admin: 09/17/20 08:29 Dose: 50 ml Documented by: Ondansetron HCl (Zofran) 4 mg IVPUSH ONETIME ONE Stop: 09/17/20 06:50 Last Admin: 09/17/20 07:00 Dose: 4 mg Documented by: Pantoprazole Sodium (Protonix Iv) 40 mg IVPUSH ONETIME ONE Stop: 09/17/20 06:50 Last Admin: 09/17/20 06:58 Dose: 40 mg Documented by: Sodium Chloride (Saline Flush) 10 ml FLUSH ASDIRECTED PRN PRN Reason: Keep Vein Open Last Admin: 09/19/20 07:54 Dose: 10 ml Documented by: - Exam Wound/Incisions: Dressing Dry and Intact Quality Assessment: Supplemental Oxygen General: Alert, Oriented, Cooperative, No Acute Distress Lungs: Clear to Auscultation, Normal Respiratory Effort Cardiovascular: Regular Rate, Regular Rhythm GI/Abdominal Exam: Normal Bowel Sounds (much improved since yesterday. ), Soft, Tender (along incision ), Other (NGT is clearing to a clear green vs its appearance yesterday. ) Sepsis Event Note - Evaluation Sepsis Screening Result: No Definite Risk - Focused Exam Vital Signs: Vital Signs Temp Pulse Resp BP BP Pulse Ox Pulse Ox 09/20/20 08:45 89 L 09/20/20 08:10 95 09/20/20 08:00 97.8 F 78 17 120/55 L 95 97 09/20/20 04:00 97.7 F 79 16 129/63 96 09/20/20 02:00 97.4 F 76 14 122/57 L 98 09/20/20 00:00 97.7 F 76 15 130/66 98 09/19/20 22:00 73 16 95 09/19/20 21:20 97.3 F 69 16 160/90 H 99 - Problem List & Annotations (1) SBO (small bowel obstruction) SNOMED Code(s): 530905588 Code(s): K56.609 - UNSP INTESTNL OBST, UNSP TO PARTIAL VERSUS COMPLETE OBST Status: Acute Current Visit: Yes (2) Cholelithiases SNOMED Code(s): 138295456 Code(s): K80.20 - CALCULUS OF GALLBLADDER W/O CHOLECYSTITIS W/O OBSTRUCTION Status: Acute Current Visit: Yes Annotation/Comment:: unremarkable appearing gallbladder at the time of surgery. Qualifiers: Cholelithiasis location: gallbladder Cholecystitis presence: without cholecystitis Biliary obstruction: without biliary obstruction Qualified Code(s): K80.20 - Calculus of gallbladder without cholecystitis without obstruction - Problem List Review Problem List Initiated/Reviewed/Updated: Yes - My Orders Last 24 Hours: Active Orders 24 hr Category Date Time Status Admission Status [Patient Status] [ADT] Routine ADT 09/19/20 19:30 Active Transfer Patient (Change bed) [ADT] Routine ADT 09/20/20 09:07 Ordered Ambulate [RC] Q4HWA Care 09/20/20 09:04 Ordered DC García Catheter [Urinary Catheter Removal] [RC] PER Care 09/20/20 09:03 Ordered UNIT ROUTINE IS (RT) [RT Incentive Spirometry] [RC] Q2HWA Care 09/20/20 09:03 Ordered NG [Gastrointestinal Tube Mgmt] [RC] QSHIFT Care 09/19/20 19:59 Active Notify Provider Vital Signs [RC] ASDIRECTED Care 09/19/20 19:49 Active Lactated Ringers [Ringers, Lactated] 1,000 ml Med 09/19/20 19:45 Active IV ASDIRECTED Morphine Med 09/19/20 19:59 Active 1 mg IVPUSH Q1H PRN Pantoprazole [ProTONIX IV] Med 09/19/20 20:00 Active 40 mg IVPUSH Q24H SCD [Sequential Compression Device] [OM.PC] Routine Oth 09/19/20 16:34 Ordered Medication Orders Lactated Ringer's (Ringers, Lactated) 1,000 mls @ 125 mls/hr IV ASDIRECTED [facility] Last Admin: 09/20/20 04:18 Dose: 125 mls/hr Documented by: Infusion: 09/20/20 04:18 Dose: 125 mls/hr Documented by: Admin: 09/19/20 20:39 Dose: 125 mls/hr Documented by: MALENA Morphine Sulfate (Morphine) 1 mg IVPUSH Q1H PRN PRN Reason: Pain Last Admin: 09/20/20 06:14 Dose: 1 mg Documented by: Admin: 09/20/20 04:11 Dose: 1 mg Documented by: Admin: 09/20/20 02:10 Dose: 1 mg Documented by: Admin: 09/19/20 23:41 Dose: 1 mg Documented by: MALENA Ondansetron HCl (Zofran) 4 mg IVPUSH Q4H PRN PRN Reason: Nausea/Vomiting Last Admin: 09/19/20 05:40 Dose: 4 mg Documented by: Admin: 09/18/20 17:09 Dose: 4 mg Documented by: Admin: 09/17/20 17:57 Dose: 4 mg Documented by: Admin: 09/17/20 13:57 Dose: 4 mg Documented by: EAGLE Pantoprazole Sodium (Protonix Iv) 40 mg IVPUSH Q24H [facility] Last Admin: 09/19/20 20:25 Dose: 40 mg Documented by: ZIA - Assessment Assessment (Free Text/Narrative):: POD #1 bowel function appears to be returning. the pt clinically looks very good Feel we can move her out of the ICU setting. - Plan Plan (Free Text/Narrative):: garcía out. IS ambulate in hallway will continue NGT for today maybe able to pull it this evening or in the am. continue IVF switch to D5 1/2 NS
[2020-09-20] MEDS: D5 1/2 NS w/ 20 mEq/L KCl 1,000 ML IV SCH ×2 (12:25→20:34)
[2020-09-20] MEDS: Pantoprazole 40 MG Vial IVPUSH SCH (19:28)
[2020-09-21] MEDS: D5 1/2 NS w/ 20 mEq/L KCl 1,000 ML IV SCH ×2 (02:46→12:01)
--- NOTE | 2020-09-21 07:59 | PCM.PN ---
- General Info Date of Service: 09/21/20 Admission Dx/Problem (Free Text): Patient states she is doing well and wants to go home. She denies any chest pain, palpitations, shortness of breath, fevers, chills. Some mild abdominal pain over her incision. She is not passing gas or having any BMs at this point. - Patient Data Vitals - Most Recent: Last Vital Signs Temp 97.5 F 09/21/20 02:53 Pulse 68 09/21/20 02:53 Resp 16 09/21/20 02:53 BP 156/90 H 09/21/20 02:53 Pulse Ox 92 L 09/21/20 02:53 Weight - Most Recent: 116 lb 1 oz I&O - Last 24 Hours: Intake & Output 09/20/20 09/21/20 09/21/20 23:59 06:59 14:59 Intake Total Output Total 200 Balance -200 Ricardo Results Last 24 Hours: Microbiology 09/17/20 07:00 Aerobic Blood Culture - Preliminary Blood - Venous NO GROWTH AFTER 4 DAYS Anaerobic Blood Culture - Preliminary NO GROWTH AFTER 4 DAYS 09/17/20 07:05 Aerobic Blood Culture - Preliminary Blood - Venous - Lab Draw NO GROWTH AFTER 4 DAYS Anaerobic Blood Culture - Preliminary NO GROWTH AFTER 4 DAYS Med Orders - Current: Current Medications Potassium Chloride/Dextrose/Sod Cl (D5 1/2 Ns W/ 20 Meq/L Kcl) 1,000 mls @ 125 mls/hr IV ASDIRECTED [facility] Last Admin: 09/21/20 02:46 Dose: 125 mls/hr Documented by: Morphine Sulfate (Morphine) 1 mg IVPUSH Q1H PRN PRN Reason: Pain Last Admin: 09/20/20 23:28 Dose: 1 mg Documented by: Ondansetron HCl (Zofran) 4 mg IVPUSH Q4H PRN PRN Reason: Nausea/Vomiting Last Admin: 09/19/20 05:40 Dose: 4 mg Documented by: Pantoprazole Sodium (Protonix Iv) 40 mg IVPUSH Q24H [facility] Last Admin: 09/20/20 19:28 Dose: 40 mg Documented by: Discontinued Medications Al Hydroxide/Mg Hydroxide (Mag-Al Susp) 30 ml PO Q2H PRN PRN Reason: Heartburn Bisacodyl (Dulcolax) 10 mg RECTAL ONETIME ONE Stop: 09/18/20 08:30 Last Admin: 09/18/20 08:42 Dose: 10 mg Documented by: Carvedilol (Coreg) 3.125 mg PO BID [facility] Last Admin: 09/19/20 07:59 Dose: 3.125 mg Documented by: Digoxin (Lanoxin) 250 mcg IVPUSH ONETIME ONE Stop: 09/17/20 06:50 Last Admin: 09/17/20 07:00 Dose: 250 mcg Documented by: Sodium Chloride (Normal Saline) 500 mls @ 500 mls/hr IV .BOLUS ONE Stop: 09/17/20 07:49 Last Admin: 09/17/20 07:00 Dose: 500 mls/hr Documented by: Sodium Chloride (Normal Saline) 1,000 mls @ 999 mls/hr IV .BOLUS ONE Stop: 09/17/20 08:48 Last Admin: 09/17/20 08:00 Dose: 999 mls/hr Documented by: Piperacillin Sod/Tazobactam (Sod 2.25 gm/ Sodium Chloride) 50 mls @ 100 mls/hr IV Q6H [facility] Last Admin: 09/17/20 09:02 Dose: 100 mls/hr Documented by: Sodium Chloride (Normal Saline) 1,000 mls @ 75 mls/hr IV ASDIRECTED [facility] Last Admin: 09/19/20 07:54 Dose: 75 mls/hr Documented by: Lactated Ringer's (Ringers, Lactated) 1,000 mls @ 125 mls/hr IV ASDIRECTED [facility] Last Admin: 09/20/20 04:18 Dose: 125 mls/hr Documented by: Iopamidol (Isovue-370 (76%)) 100 ml IV . DIRECTED ONE Stop: 09/17/20 08:03 Last Admin: 09/17/20 08:29 Dose: 50 ml Documented by: Ondansetron HCl (Zofran) 4 mg IVPUSH ONETIME ONE Stop: 09/17/20 06:50 Last Admin: 09/17/20 07:00 Dose: 4 mg Documented by: Pantoprazole Sodium (Protonix Iv) 40 mg IVPUSH ONETIME ONE Stop: 09/17/20 06:50 Last Admin: 09/17/20 06:58 Dose: 40 mg Documented by: Sodium Chloride (Saline Flush) 10 ml FLUSH ASDIRECTED PRN PRN Reason: Keep Vein Open Last Admin: 09/19/20 07:54 Dose: 10 ml Documented by: - Exam General: Alert, Oriented, Severe Distress Neck: Supple Lungs: Clear to Auscultation, Normal Respiratory Effort. No: Crackles, Rales, Rhonchi Cardiovascular: Regular Rate, Regular Rhythm, No Murmurs GI/Abdominal Exam: No Distention Extremities: No Pedal Edema Sepsis Event Note - Evaluation Sepsis Screening Result: No Definite Risk - Focused Exam Vital Signs: Vital Signs Temp Pulse Resp BP BP Pulse Ox 09/21/20 02:53 97.5 F 68 16 156/90 H 92 L 09/21/20 00:00 97.7 F 16 138/63 89 L 09/20/20 22:00 97.6 F 64 18 144/63 H 93 L - Problem List & Annotations (1) Acute kidney injury SNOMED Code(s): 19351005, 69007883 Code(s): N17.9 - ACUTE KIDNEY FAILURE, UNSPECIFIED Status: Acute Current Visit: Yes (2) Palliative care status SNOMED Code(s): 472290166 Code(s): Z51.5 - ENCOUNTER FOR PALLIATIVE CARE Status: Acute Current Visit: Yes (3) Atrial fibrillation with RVR SNOMED Code(s): 913149689983397 Code(s): I48.91 - UNSPECIFIED ATRIAL FIBRILLATION Status: Acute Current Visit: Yes (4) Cholelithiases SNOMED Code(s): 458786111 Code(s): K80.20 - CALCULUS OF GALLBLADDER W/O CHOLECYSTITIS W/O OBSTRUCTION Status: Acute Current Visit: Yes Qualifiers: Cholelithiasis location: gallbladder Cholecystitis presence: without cholecystitis Biliary obstruction: without biliary obstruction Qualified Code(s): K80.20 - Calculus of gallbladder without cholecystitis without obstruction Annotation/Comment:: unremarkable appearing gallbladder at the time of surgery. (5) Elevated lactic acid level SNOMED Code(s): 5276982 Code(s): R79.89 - OTHER SPECIFIED ABNORMAL FINDINGS OF BLOOD CHEMISTRY Status: Acute Current Visit: Yes (6) SBO (small bowel obstruction) SNOMED Code(s): 673253043 Code(s): K56.609 - UNSP INTESTNL OBST, UNSP TO PARTIAL VERSUS COMPLETE OBST Status: Acute Current Visit: Yes - Problem List Review Problem List Initiated/Reviewed/Updated: Yes - Plan Plan:: 1. Kidneys remain stable. O2 saturations a little down. Work on pulmonary toilet 2. No signs of atrial fibrillation. 3. Orders per surgery. No orders from my perspective at this time.
--- NOTE | 2020-09-21 09:43 | PCM.SURGPN ---
- General Info Date of Service: 09/21/20 POD#: 2 Functional Status: Reports: Pain Controlled, Ambulating, Urinating, Incentive Spirometry - Review of Systems General: Reports: Other (weight is up 4 lbs. ) Pulmonary: Reports: No Symptoms, Other (needed to be put on 1 liter of O2) Cardiovascular: Reports: No Symptoms, Edema (in hands ) Gastrointestinal: Reports: Abdominal Pain (along incision ). Denies: Flatus Genitourinary: Reports: No Symptoms Skin: Reports: No Symptoms - Patient Data Vitals - Most Recent: Last Vital Signs Temp 97.5 F 09/21/20 08:00 Pulse 66 09/21/20 08:00 Resp 20 09/21/20 08:00 BP 142/68 H 09/21/20 08:00 Pulse Ox 95 09/21/20 08:00 Weight - Most Recent: 52.645 kg I&O - Last 24 Hours: Intake & Output 09/20/20 09/21/20 09/21/20 23:59 06:59 14:59 Intake Total Output Total 200 Balance -200 Ricardo Results Last 24 Hrs: Microbiology 09/17/20 07:00 Aerobic Blood Culture - Preliminary Blood - Venous NO GROWTH AFTER 4 DAYS Anaerobic Blood Culture - Preliminary NO GROWTH AFTER 4 DAYS 09/17/20 07:05 Aerobic Blood Culture - Preliminary Blood - Venous - Lab Draw NO GROWTH AFTER 4 DAYS Anaerobic Blood Culture - Preliminary NO GROWTH AFTER 4 DAYS Med Orders - Current: Current Medications Furosemide (Lasix) 20 mg IVPUSH DAILY [facility] Potassium Chloride/Dextrose/Sod Cl (D5 1/2 Ns W/ 20 Meq/L Kcl) 1,000 mls @ 75 mls/hr IV ASDIRECTED [facility] Last Infusion: 09/21/20 09:10 Dose: 75 mls/hr Documented by: Morphine Sulfate (Morphine) 1 mg IVPUSH Q1H PRN PRN Reason: Pain Last Admin: 09/20/20 23:28 Dose: 1 mg Documented by: Ondansetron HCl (Zofran) 4 mg IVPUSH Q4H PRN PRN Reason: Nausea/Vomiting Last Admin: 09/19/20 05:40 Dose: 4 mg Documented by: Pantoprazole Sodium (Protonix Iv) 40 mg IVPUSH Q24H [facility] Last Admin: 09/20/20 19:28 Dose: 40 mg Documented by: Discontinued Medications Al Hydroxide/Mg Hydroxide (Mag-Al Susp) 30 ml PO Q2H PRN PRN Reason: Heartburn Bisacodyl (Dulcolax) 10 mg RECTAL ONETIME ONE Stop: 09/18/20 08:30 Last Admin: 09/18/20 08:42 Dose: 10 mg Documented by: Carvedilol (Coreg) 3.125 mg PO BID [facility] Last Admin: 09/19/20 07:59 Dose: 3.125 mg Documented by: Digoxin (Lanoxin) 250 mcg IVPUSH ONETIME ONE Stop: 09/17/20 06:50 Last Admin: 09/17/20 07:00 Dose: 250 mcg Documented by: Sodium Chloride (Normal Saline) 500 mls @ 500 mls/hr IV .BOLUS ONE Stop: 09/17/20 07:49 Last Admin: 09/17/20 07:00 Dose: 500 mls/hr Documented by: Sodium Chloride (Normal Saline) 1,000 mls @ 999 mls/hr IV .BOLUS ONE Stop: 09/17/20 08:48 Last Admin: 09/17/20 08:00 Dose: 999 mls/hr Documented by: Piperacillin Sod/Tazobactam (Sod 2.25 gm/ Sodium Chloride) 50 mls @ 100 mls/hr IV Q6H [facility] Last Admin: 09/17/20 09:02 Dose: 100 mls/hr Documented by: Sodium Chloride (Normal Saline) 1,000 mls @ 75 mls/hr IV ASDIRECTED [facility] Last Admin: 09/19/20 07:54 Dose: 75 mls/hr Documented by: Lactated Ringer's (Ringers, Lactated) 1,000 mls @ 125 mls/hr IV ASDIRECTED [facility] Last Admin: 09/20/20 04:18 Dose: 125 mls/hr Documented by: Iopamidol (Isovue-370 (76%)) 100 ml IV . DIRECTED ONE Stop: 09/17/20 08:03 Last Admin: 09/17/20 08:29 Dose: 50 ml Documented by: Ondansetron HCl (Zofran) 4 mg IVPUSH ONETIME ONE Stop: 09/17/20 06:50 Last Admin: 09/17/20 07:00 Dose: 4 mg Documented by: Pantoprazole Sodium (Protonix Iv) 40 mg IVPUSH ONETIME ONE Stop: 09/17/20 06:50 Last Admin: 09/17/20 06:58 Dose: 40 mg Documented by: Sodium Chloride (Saline Flush) 10 ml FLUSH ASDIRECTED PRN PRN Reason: Keep Vein Open Last Admin: 09/19/20 07:54 Dose: 10 ml Documented by: - Exam Wound/Incisions: Dressing Dry and Intact General: Alert, Oriented, Cooperative, No Acute Distress Lungs: Clear to Auscultation, Normal Respiratory Effort Cardiovascular: Regular Rate, Regular Rhythm GI/Abdominal Exam: Normal Bowel Sounds, Soft, No Distention, Tender (along incision ) Sepsis Event Note - Evaluation Sepsis Screening Result: No Definite Risk - Focused Exam Vital Signs: Vital Signs Temp Pulse Pulse Resp BP Pulse Ox 09/21/20 08:00 97.5 F 66 20 142/68 H 95 09/21/20 02:53 97.5 F 68 16 156/90 H 92 L 09/21/20 00:00 97.7 F 16 138/63 89 L - Problem List & Annotations (1) SBO (small bowel obstruction) SNOMED Code(s): 468494031 Code(s): K56.609 - UNSP INTESTNL OBST, UNSP TO PARTIAL VERSUS COMPLETE OBST Status: Acute Current Visit: Yes (2) Cholelithiases SNOMED Code(s): 760913116 Code(s): K80.20 - CALCULUS OF GALLBLADDER W/O CHOLECYSTITIS W/O OBSTRUCTION Status: Acute Current Visit: Yes Annotation/Comment:: unremarkable appearing gallbladder at the time of surgery. Qualifiers: Cholelithiasis location: gallbladder Cholecystitis presence: without cholecystitis Biliary obstruction: without biliary obstruction Qualified Code(s): K80.20 - Calculus of gallbladder without cholecystitis without obstruction - Problem List Review Problem List Initiated/Reviewed/Updated: Yes - My Orders Last 24 Hours: Active Orders 24 hr Category Date Time Status BASIC METABOLIC PANEL,BMP [CHEM] AM Lab 09/22/20 05:11 Ordered Furosemide [Lasix] Med 09/21/20 09:45 Ordered 20 mg IVPUSH DAILY NG [Nasogastric Orogastric Tube Removal] [OM.PC] Oth 09/21/20 09:38 Ordered Routine Medication Orders Furosemide (Lasix) 20 mg IVPUSH DAILY [facility] Potassium Chloride/Dextrose/Sod Cl (D5 1/2 Ns W/ 20 Meq/L Kcl) 1,000 mls @ 75 mls/hr IV ASDIRECTED [facility] Last Infusion: 09/21/20 09:10 Dose: 75 mls/hr Documented by: Admin: 09/21/20 02:46 Dose: 125 mls/hr Documented by: Infusion: 09/21/20 02:46 Dose: 125 mls/hr Documented by: Admin: 09/20/20 20:34 Dose: 125 mls/hr Documented by: Infusion: 09/20/20 20:25 Dose: 125 mls/hr Documented by: Admin: 09/20/20 12:25 Dose: 125 mls/hr Documented by: TANYA Morphine Sulfate (Morphine) 1 mg IVPUSH Q1H PRN PRN Reason: Pain Last Admin: 09/20/20 23:28 Dose: 1 mg Documented by: Admin: 09/20/20 09:09 Dose: 1 mg Documented by: Admin: 09/20/20 06:14 Dose: 1 mg Documented by: Admin: 09/20/20 04:11 Dose: 1 mg Documented by: Admin: 09/20/20 02:10 Dose: 1 mg Documented by: Admin: 09/19/20 23:41 Dose: 1 mg Documented by: MALENA Ondansetron HCl (Zofran) 4 mg IVPUSH Q4H PRN PRN Reason: Nausea/Vomiting Last Admin: 09/19/20 05:40 Dose: 4 mg Documented by: Admin: 09/18/20 17:09 Dose: 4 mg Documented by: Admin: 09/17/20 17:57 Dose: 4 mg Documented by: Admin: 09/17/20 13:57 Dose: 4 mg Documented by: EAGLE Pantoprazole Sodium (Protonix Iv) 40 mg IVPUSH Q24H [facility] Last Admin: 09/20/20 19:28 Dose: 40 mg Documented by: Admin: 09/19/20 20:25 Dose: 40 mg Documented by: ZIA - Assessment Assessment (Free Text/Narrative):: wt is up. albumin is low which is contributing to the situation. bowel sounds are good. NGT out put is down and appears clear. - Plan Plan (Free Text/Narrative):: Lasix 20 mg today. d/c ngt decrease IVF rate. continue ambulation and IS
[2020-09-21] MEDS: Furosemide 20 MG/2 ML VIAL IVPUSH SCH (09:51)
[2020-09-21] MEDS: Pantoprazole 40 MG Vial IVPUSH SCH (19:57)
[2020-09-22] MEDS: D5 1/2 NS w/ 20 mEq/L KCl 1,000 ML IV SCH ×3 (01:27→17:27)
[2020-09-22] MEDS ORDERED: Bisacodyl 10 MG Supp RECTAL ONE (07:57)
--- NOTE | 2020-09-22 07:59 | PCM.SURGPN ---
- General Info Date of Service: 09/22/20 POD#: 3 Functional Status: Reports: Pain Controlled, Ambulating, Urinating. Denies: New Symptoms - Review of Systems HEENT: Reports: No Symptoms Pulmonary: Reports: No Symptoms Cardiovascular: Reports: No Symptoms Gastrointestinal: Denies: Flatus - Patient Data Vitals - Most Recent: Last Vital Signs Temp 97.4 F 09/22/20 04:00 Pulse 74 09/22/20 04:00 Resp 16 09/22/20 04:00 BP 138/74 09/22/20 04:00 Pulse Ox 94 L 09/22/20 04:00 Weight - Most Recent: 52.22 kg I&O - Last 24 Hours: Intake & Output 09/21/20 09/22/20 09/22/20 22:59 06:59 14:59 Intake Total 625 588 Output Total 125 500 Balance 500 88 Lab Results Last 24 Hrs: Laboratory Results - last 24 hr 09/22/20 Range/Units 06:15 Sodium 138 (135-145) mmol/L Potassium 4.2 (3.5-5.3) mmol/L Chloride 104 (100-110) mmol/L Carbon Dioxide 29 (21-32) mmol/L BUN 11 D (7-18) mg/dL Creatinine 1.0 (0.55-1.02) mg/dL Est Cr Clr Drug Dosing 29.01 mL/min Estimated GFR (MDRD) 53 L (>60) BUN/Creatinine Ratio 11.0 (9-20) Glucose 115 (80-116) mg/dL Calcium 7.9 L (8.6-10.2) mg/dL Ricardo Results Last 24 Hrs: Microbiology 09/17/20 07:05 Aerobic Blood Culture - Final Blood - Venous - Lab Draw NO GROWTH AFTER 5 DAYS Anaerobic Blood Culture - Final NO GROWTH AFTER 5 DAYS 09/17/20 07:00 Aerobic Blood Culture - Final Blood - Venous NO GROWTH AFTER 5 DAYS Anaerobic Blood Culture - Final NO GROWTH AFTER 5 DAYS Med Orders - Current: Current Medications Bisacodyl (Dulcolax) 10 mg RECTAL ONETIME ONE Stop: 09/22/20 07:58 Furosemide (Lasix) 20 mg IVPUSH DAILY [facility] Last Admin: 09/21/20 09:51 Dose: 20 mg Documented by: Potassium Chloride/Dextrose/Sod Cl (D5 1/2 Ns W/ 20 Meq/L Kcl) 1,000 mls @ 75 mls/hr IV ASDIRECTED [facility] Last Admin: 09/22/20 01:27 Dose: 75 mls/hr Documented by: Metoclopramide HCl (Reglan) 5 mg IVPUSH TID [facility] Morphine Sulfate (Morphine) 1 mg IVPUSH Q1H PRN PRN Reason: Pain Last Admin: 09/20/20 23:28 Dose: 1 mg Documented by: Ondansetron HCl (Zofran) 4 mg IVPUSH Q4H PRN PRN Reason: Nausea/Vomiting Last Admin: 09/19/20 05:40 Dose: 4 mg Documented by: Pantoprazole Sodium (Protonix Iv) 40 mg IVPUSH Q24H [facility] Last Admin: 09/21/20 19:57 Dose: 40 mg Documented by: Discontinued Medications Al Hydroxide/Mg Hydroxide (Mag-Al Susp) 30 ml PO Q2H PRN PRN Reason: Heartburn Bisacodyl (Dulcolax) 10 mg RECTAL ONETIME ONE Stop: 09/18/20 08:30 Last Admin: 09/18/20 08:42 Dose: 10 mg Documented by: Carvedilol (Coreg) 3.125 mg PO BID [facility] Last Admin: 09/19/20 07:59 Dose: 3.125 mg Documented by: Digoxin (Lanoxin) 250 mcg IVPUSH ONETIME ONE Stop: 09/17/20 06:50 Last Admin: 09/17/20 07:00 Dose: 250 mcg Documented by: Sodium Chloride (Normal Saline) 500 mls @ 500 mls/hr IV .BOLUS ONE Stop: 09/17/20 07:49 Last Admin: 09/17/20 07:00 Dose: 500 mls/hr Documented by: Sodium Chloride (Normal Saline) 1,000 mls @ 999 mls/hr IV .BOLUS ONE Stop: 09/17/20 08:48 Last Admin: 09/17/20 08:00 Dose: 999 mls/hr Documented by: Piperacillin Sod/Tazobactam (Sod 2.25 gm/ Sodium Chloride) 50 mls @ 100 mls/hr IV Q6H [facility] Last Admin: 09/17/20 09:02 Dose: 100 mls/hr Documented by: Sodium Chloride (Normal Saline) 1,000 mls @ 75 mls/hr IV ASDIRECTED [facility] Last Admin: 09/19/20 07:54 Dose: 75 mls/hr Documented by: Lactated Ringer's (Ringers, Lactated) 1,000 mls @ 125 mls/hr IV ASDIRECTED [facility] Last Admin: 09/20/20 04:18 Dose: 125 mls/hr Documented by: Iopamidol (Isovue-370 (76%)) 100 ml IV . DIRECTED ONE Stop: 09/17/20 08:03 Last Admin: 09/17/20 08:29 Dose: 50 ml Documented by: Ondansetron HCl (Zofran) 4 mg IVPUSH ONETIME ONE Stop: 09/17/20 06:50 Last Admin: 09/17/20 07:00 Dose: 4 mg Documented by: Pantoprazole Sodium (Protonix Iv) 40 mg IVPUSH ONETIME ONE Stop: 09/17/20 06:50 Last Admin: 09/17/20 06:58 Dose: 40 mg Documented by: Sodium Chloride (Saline Flush) 10 ml FLUSH ASDIRECTED PRN PRN Reason: Keep Vein Open Last Admin: 09/19/20 07:54 Dose: 10 ml Documented by: - Exam Wound/Incisions: Dressing Dry and Intact General: Alert, Oriented, Cooperative, No Acute Distress Lungs: Clear to Auscultation, Normal Respiratory Effort Cardiovascular: Regular Rate, Regular Rhythm GI/Abdominal Exam: Soft, Non-Tender, Abnormal Bowel Sounds (slightly hypoactive this morning. ) Sepsis Event Note - Evaluation Sepsis Screening Result: No Definite Risk - Focused Exam Vital Signs: Vital Signs Temp Pulse Resp BP Pulse Ox 09/22/20 04:00 97.4 F 74 16 138/74 94 L 09/22/20 01:00 97.8 F 72 16 148/80 H 94 L 09/21/20 20:00 98.2 F 77 20 144/67 H 95 - Problem List & Annotations (1) SBO (small bowel obstruction) SNOMED Code(s): 467652130 Code(s): K56.609 - UNSP INTESTNL OBST, UNSP TO PARTIAL VERSUS COMPLETE OBST Status: Acute Current Visit: Yes (2) Cholelithiases SNOMED Code(s): 592792975 Code(s): K80.20 - CALCULUS OF GALLBLADDER W/O CHOLECYSTITIS W/O OBSTRUCTION Status: Acute Current Visit: Yes Annotation/Comment:: unremarkable appearing gallbladder at the time of surgery. Qualifiers: Cholelithiasis location: gallbladder Cholecystitis presence: without cholecystitis Biliary obstruction: without biliary obstruction Qualified Code(s): K80.20 - Calculus of gallbladder without cholecystitis without obstruction - Problem List Review Problem List Initiated/Reviewed/Updated: Yes - My Orders Last 24 Hours: Active Orders 24 hr Category Date Time Status Intake and Output [RC] 06,14,22 Care 09/21/20 09:44 Active NPO [Nothing Per Oral Diet] [DIET] Diet 09/22/20 Lunch Active Furosemide [Lasix] Med 09/21/20 09:45 Active 20 mg IVPUSH DAILY Metoclopramide [Reglan] Med 09/22/20 09:00 Ordered 5 mg IVPUSH TID bisacodyL [Dulcolax] Med 09/22/20 07:57 Once 10 mg RECTAL ONETIME ONE NG [Nasogastric Orogastric Tube Removal] [OM.PC] Oth 09/21/20 09:38 Ordered Routine Medication Orders Bisacodyl (Dulcolax) 10 mg RECTAL ONETIME ONE Stop: 09/22/20 07:58 Furosemide (Lasix) 20 mg IVPUSH DAILY [facility] Last Admin: 09/21/20 09:51 Dose: 20 mg Documented by: TANYA Potassium Chloride/Dextrose/Sod Cl (D5 1/2 Ns W/ 20 Meq/L Kcl) 1,000 mls @ 75 mls/hr IV ASDIRECTED [facility] Last Admin: 09/22/20 01:27 Dose: 75 mls/hr Documented by: Infusion: 09/22/20 01:21 Dose: 75 mls/hr Documented by: Admin: 09/21/20 12:01 Dose: 75 mls/hr Documented by: Infusion: 09/21/20 11:51 Dose: 75 mls/hr Documented by: Infusion: 09/21/20 09:10 Dose: 75 mls/hr Documented by: Admin: 09/21/20 02:46 Dose: 125 mls/hr Documented by: Infusion: 09/21/20 02:46 Dose: 125 mls/hr Documented by: Admin: 09/20/20 20:34 Dose: 125 mls/hr Documented by: Infusion: 09/20/20 20:25 Dose: 125 mls/hr Documented by: Admin: 09/20/20 12:25 Dose: 125 mls/hr Documented by: TANYA Metoclopramide HCl (Reglan) 5 mg IVPUSH TID [facility] Morphine Sulfate (Morphine) 1 mg IVPUSH Q1H PRN PRN Reason: Pain Last Admin: 09/20/20 23:28 Dose: 1 mg Documented by: Admin: 09/20/20 09:09 Dose: 1 mg Documented by: Admin: 09/20/20 06:14 Dose: 1 mg Documented by: Admin: 09/20/20 04:11 Dose: 1 mg Documented by: Admin: 09/20/20 02:10 Dose: 1 mg Documented by: Admin: 09/19/20 23:41 Dose: 1 mg Documented by: MALENA Ondansetron HCl (Zofran) 4 mg IVPUSH Q4H PRN PRN Reason: Nausea/Vomiting Last Admin: 09/19/20 05:40 Dose: 4 mg Documented by: Admin: 09/18/20 17:09 Dose: 4 mg Documented by: Admin: 09/17/20 17:57 Dose: 4 mg Documented by: Admin: 09/17/20 13:57 Dose: 4 mg Documented by: EAGLE Pantoprazole Sodium (Protonix Iv) 40 mg IVPUSH Q24H [facility] Last Admin: 09/21/20 19:57 Dose: 40 mg Documented by: Admin: 09/20/20 19:28 Dose: 40 mg Documented by: Admin: 09/19/20 20:25 Dose: 40 mg Documented by: ZIA - Assessment Assessment (Free Text/Narrative):: unremarkable exam good diuresis yesterday. - Plan Plan (Free Text/Narrative):: Dulcolax suppository reglan 5 mg tid to get gut going. continue ambulation
--- NOTE | 2020-09-22 08:34 | PCM.PN ---
- General Info Date of Service: 09/22/20 Admission Dx/Problem (Free Text): The patient is doing well. No nausea, vomiting. Has not passed gas or had a BM yet. - Patient Data Vitals - Most Recent: Last Vital Signs Temp 97.4 F 09/22/20 04:00 Pulse 74 09/22/20 04:00 Resp 16 09/22/20 04:00 BP 138/74 09/22/20 04:00 Pulse Ox 94 L 09/22/20 04:00 Weight - Most Recent: 115 lb 2 oz I&O - Last 24 Hours: Intake & Output 09/21/20 09/22/20 09/22/20 22:59 06:59 14:59 Intake Total 625 588 Output Total 125 500 Balance 500 88 Lab Results Last 24 Hours: Laboratory Results - last 24 hr 09/22/20 Range/Units 06:15 Sodium 138 (135-145) mmol/L Potassium 4.2 (3.5-5.3) mmol/L Chloride 104 (100-110) mmol/L Carbon Dioxide 29 (21-32) mmol/L BUN 11 D (7-18) mg/dL Creatinine 1.0 (0.55-1.02) mg/dL Est Cr Clr Drug Dosing 29.01 mL/min Estimated GFR (MDRD) 53 L (>60) BUN/Creatinine Ratio 11.0 (9-20) Glucose 115 (80-116) mg/dL Calcium 7.9 L (8.6-10.2) mg/dL Ricardo Results Last 24 Hours: Microbiology 09/17/20 07:05 Aerobic Blood Culture - Final Blood - Venous - Lab Draw NO GROWTH AFTER 5 DAYS Anaerobic Blood Culture - Final NO GROWTH AFTER 5 DAYS 09/17/20 07:00 Aerobic Blood Culture - Final Blood - Venous NO GROWTH AFTER 5 DAYS Anaerobic Blood Culture - Final NO GROWTH AFTER 5 DAYS Med Orders - Current: Current Medications Furosemide (Lasix) 20 mg IVPUSH DAILY [facility] Last Admin: 09/21/20 09:51 Dose: 20 mg Documented by: Potassium Chloride/Dextrose/Sod Cl (D5 1/2 Ns W/ 20 Meq/L Kcl) 1,000 mls @ 75 mls/hr IV ASDIRECTED [facility] Last Admin: 09/22/20 01:27 Dose: 75 mls/hr Documented by: Metoclopramide HCl (Reglan) 5 mg IVPUSH TID [facility] Morphine Sulfate (Morphine) 1 mg IVPUSH Q1H PRN PRN Reason: Pain Last Admin: 09/20/20 23:28 Dose: 1 mg Documented by: Ondansetron HCl (Zofran) 4 mg IVPUSH Q4H PRN PRN Reason: Nausea/Vomiting Last Admin: 09/19/20 05:40 Dose: 4 mg Documented by: Pantoprazole Sodium (Protonix Iv) 40 mg IVPUSH Q24H [facility] Last Admin: 09/21/20 19:57 Dose: 40 mg Documented by: Discontinued Medications Al Hydroxide/Mg Hydroxide (Mag-Al Susp) 30 ml PO Q2H PRN PRN Reason: Heartburn Bisacodyl (Dulcolax) 10 mg RECTAL ONETIME ONE Stop: 09/18/20 08:30 Last Admin: 09/18/20 08:42 Dose: 10 mg Documented by: Bisacodyl (Dulcolax) 10 mg RECTAL ONETIME ONE Stop: 09/22/20 07:58 Carvedilol (Coreg) 3.125 mg PO BID [facility] Last Admin: 09/19/20 07:59 Dose: 3.125 mg Documented by: Digoxin (Lanoxin) 250 mcg IVPUSH ONETIME ONE Stop: 09/17/20 06:50 Last Admin: 09/17/20 07:00 Dose: 250 mcg Documented by: Sodium Chloride (Normal Saline) 500 mls @ 500 mls/hr IV .BOLUS ONE Stop: 09/17/20 07:49 Last Admin: 09/17/20 07:00 Dose: 500 mls/hr Documented by: Sodium Chloride (Normal Saline) 1,000 mls @ 999 mls/hr IV .BOLUS ONE Stop: 09/17/20 08:48 Last Admin: 09/17/20 08:00 Dose: 999 mls/hr Documented by: Piperacillin Sod/Tazobactam (Sod 2.25 gm/ Sodium Chloride) 50 mls @ 100 mls/hr IV Q6H [facility] Last Admin: 09/17/20 09:02 Dose: 100 mls/hr Documented by: Sodium Chloride (Normal Saline) 1,000 mls @ 75 mls/hr IV ASDIRECTED [facility] Last Admin: 09/19/20 07:54 Dose: 75 mls/hr Documented by: Lactated Ringer's (Ringers, Lactated) 1,000 mls @ 125 mls/hr IV ASDIRECTED [facility] Last Admin: 09/20/20 04:18 Dose: 125 mls/hr Documented by: Iopamidol (Isovue-370 (76%)) 100 ml IV . DIRECTED ONE Stop: 09/17/20 08:03 Last Admin: 09/17/20 08:29 Dose: 50 ml Documented by: Ondansetron HCl (Zofran) 4 mg IVPUSH ONETIME ONE Stop: 09/17/20 06:50 Last Admin: 09/17/20 07:00 Dose: 4 mg Documented by: Pantoprazole Sodium (Protonix Iv) 40 mg IVPUSH ONETIME ONE Stop: 09/17/20 06:50 Last Admin: 09/17/20 06:58 Dose: 40 mg Documented by: Sodium Chloride (Saline Flush) 10 ml FLUSH ASDIRECTED PRN PRN Reason: Keep Vein Open Last Admin: 09/19/20 07:54 Dose: 10 ml Documented by: - Exam General: Alert, Cooperative Lungs: Clear to Auscultation, Normal Respiratory Effort Cardiovascular: Regular Rate, Regular Rhythm, No Murmurs GI/Abdominal Exam: Soft, No Distention Extremities: No Pedal Edema Sepsis Event Note - Evaluation Sepsis Screening Result: No Definite Risk - Focused Exam Vital Signs: Vital Signs Temp Pulse Resp BP Pulse Ox 09/22/20 04:00 97.4 F 74 16 138/74 94 L 09/22/20 01:00 97.8 F 72 16 148/80 H 94 L - Problem List & Annotations (1) Acute kidney injury SNOMED Code(s): 68035729, 93911432 Code(s): N17.9 - ACUTE KIDNEY FAILURE, UNSPECIFIED Status: Acute Current Visit: Yes (2) Palliative care status SNOMED Code(s): 942419100 Code(s): Z51.5 - ENCOUNTER FOR PALLIATIVE CARE Status: Acute Current Visit: Yes (3) Atrial fibrillation with RVR SNOMED Code(s): 009407845418567 Code(s): I48.91 - UNSPECIFIED ATRIAL FIBRILLATION Status: Acute Current Visit: Yes (4) Cholelithiases SNOMED Code(s): 776734034 Code(s): K80.20 - CALCULUS OF GALLBLADDER W/O CHOLECYSTITIS W/O OBSTRUCTION Status: Acute Current Visit: Yes Qualifiers: Cholelithiasis location: gallbladder Cholecystitis presence: without cholecystitis Biliary obstruction: without biliary obstruction Qualified Code(s): K80.20 - Calculus of gallbladder without cholecystitis without obstruction Annotation/Comment:: unremarkable appearing gallbladder at the time of surgery. (5) Elevated lactic acid level SNOMED Code(s): 6951680 Code(s): R79.89 - OTHER SPECIFIED ABNORMAL FINDINGS OF BLOOD CHEMISTRY Status: Acute Current Visit: Yes (6) SBO (small bowel obstruction) SNOMED Code(s): 318268182 Code(s): K56.609 - UNSP INTESTNL OBST, UNSP TO PARTIAL VERSUS COMPLETE OBST Status: Acute Current Visit: Yes - Problem List Review Problem List Initiated/Reviewed/Updated: Yes - Plan Plan:: 1. From a medical standpoint. The patient is stable. We'll sign off Dr. Ortiz will continue to follow.
[2020-09-22] MEDS: Furosemide 20 MG/2 ML VIAL IVPUSH SCH (10:09)
[2020-09-22] MEDS: Metoclopramide 10 MG/2 ML SDV IVPUSH SCH ×3 (10:09→20:36)
[2020-09-22] MEDS: Pantoprazole 40 MG Vial IVPUSH SCH (20:33)
[2020-09-23] MEDS: D5 1/2 NS w/ 20 mEq/L KCl 1,000 ML IV SCH ×2 (04:36→18:16)
--- NOTE | 2020-09-23 06:41 | PCM.SURGPN ---
- General Info Date of Service: 09/23/20 POD#: 4 Functional Status: Reports: Pain Controlled, Tolerating Diet, Ambulating, Urinating - Review of Systems General: Reports: No Symptoms Pulmonary: Reports: No Symptoms Cardiovascular: Reports: No Symptoms Gastrointestinal: Reports: Other (had a bm yesterday. reports no flatus but is tolerating po ) - Patient Data Vitals - Most Recent: Last Vital Signs Temp 98 F 09/23/20 02:30 Pulse 90 09/23/20 02:30 Resp 16 09/23/20 04:00 BP 119/81 09/23/20 02:30 Pulse Ox 95 09/23/20 02:30 Weight - Most Recent: 52.22 kg I&O - Last 24 Hours: Intake & Output 09/22/20 09/22/20 09/23/20 14:59 22:59 06:59 Intake Total 500 1318 Output Total 900 100 Balance -400 1218 Lab Results Last 24 Hrs: Laboratory Results - last 24 hr 09/22/20 Range/Units 06:15 Sodium 138 (135-145) mmol/L Potassium 4.2 (3.5-5.3) mmol/L Chloride 104 (100-110) mmol/L Carbon Dioxide 29 (21-32) mmol/L BUN 11 D (7-18) mg/dL Creatinine 1.0 (0.55-1.02) mg/dL Est Cr Clr Drug Dosing 29.01 mL/min Estimated GFR (MDRD) 53 L (>60) BUN/Creatinine Ratio 11.0 (9-20) Glucose 115 (80-116) mg/dL Calcium 7.9 L (8.6-10.2) mg/dL Ricardo Results Last 24 Hrs: Microbiology 09/17/20 07:05 Aerobic Blood Culture - Final Blood - Venous - Lab Draw NO GROWTH AFTER 5 DAYS Anaerobic Blood Culture - Final NO GROWTH AFTER 5 DAYS 09/17/20 07:00 Aerobic Blood Culture - Final Blood - Venous NO GROWTH AFTER 5 DAYS Anaerobic Blood Culture - Final NO GROWTH AFTER 5 DAYS Med Orders - Current: Current Medications Furosemide (Lasix) 20 mg IVPUSH DAILY [facility] Last Admin: 09/22/20 10:09 Dose: 20 mg Documented by: Potassium Chloride/Dextrose/Sod Cl (D5 1/2 Ns W/ 20 Meq/L Kcl) 1,000 mls @ 75 mls/hr IV Q13H [facility] Last Admin: 09/23/20 04:36 Dose: 75 mls/hr Documented by: Metoclopramide HCl (Reglan) 5 mg IVPUSH TID [facility] Last Admin: 09/22/20 20:36 Dose: 5 mg Documented by: Morphine Sulfate (Morphine) 1 mg IVPUSH Q1H PRN PRN Reason: Pain Last Admin: 09/20/20 23:28 Dose: 1 mg Documented by: Ondansetron HCl (Zofran) 4 mg IVPUSH Q4H PRN PRN Reason: Nausea/Vomiting Last Admin: 09/19/20 05:40 Dose: 4 mg Documented by: Pantoprazole Sodium (Protonix Iv) 40 mg IVPUSH Q24H [facility] Last Admin: 09/22/20 20:33 Dose: 40 mg Documented by: Discontinued Medications Al Hydroxide/Mg Hydroxide (Mag-Al Susp) 30 ml PO Q2H PRN PRN Reason: Heartburn Bisacodyl (Dulcolax) 10 mg RECTAL ONETIME ONE Stop: 09/18/20 08:30 Last Admin: 09/18/20 08:42 Dose: 10 mg Documented by: Bisacodyl (Dulcolax) 10 mg RECTAL ONETIME ONE Stop: 09/22/20 07:58 Last Admin: 09/22/20 10:10 Dose: 10 mg Documented by: Carvedilol (Coreg) 3.125 mg PO BID [facility] Last Admin: 09/19/20 07:59 Dose: 3.125 mg Documented by: Digoxin (Lanoxin) 250 mcg IVPUSH ONETIME ONE Stop: 09/17/20 06:50 Last Admin: 09/17/20 07:00 Dose: 250 mcg Documented by: Sodium Chloride (Normal Saline) 500 mls @ 500 mls/hr IV .BOLUS ONE Stop: 09/17/20 07:49 Last Admin: 09/17/20 07:00 Dose: 500 mls/hr Documented by: Sodium Chloride (Normal Saline) 1,000 mls @ 999 mls/hr IV .BOLUS ONE Stop: 09/17/20 08:48 Last Admin: 09/17/20 08:00 Dose: 999 mls/hr Documented by: Piperacillin Sod/Tazobactam (Sod 2.25 gm/ Sodium Chloride) 50 mls @ 100 mls/hr IV Q6H [facility] Last Admin: 09/17/20 09:02 Dose: 100 mls/hr Documented by: Sodium Chloride (Normal Saline) 1,000 mls @ 75 mls/hr IV ASDIRECTED [facility] Last Admin: 09/19/20 07:54 Dose: 75 mls/hr Documented by: Lactated Ringer's (Ringers, Lactated) 1,000 mls @ 125 mls/hr IV ASDIRECTED [facility] Last Admin: 09/20/20 04:18 Dose: 125 mls/hr Documented by: Potassium Chloride/Dextrose/Sod Cl (D5 1/2 Ns W/ 20 Meq/L Kcl) 1,000 mls @ 75 mls/hr IV ASDIRECTED [facility] Stop: 09/22/20 15:30 Last Admin: 09/22/20 15:09 Dose: 75 mls/hr Documented by: Iopamidol (Isovue-370 (76%)) 100 ml IV . DIRECTED ONE Stop: 09/17/20 08:03 Last Admin: 09/17/20 08:29 Dose: 50 ml Documented by: Ondansetron HCl (Zofran) 4 mg IVPUSH ONETIME ONE Stop: 09/17/20 06:50 Last Admin: 09/17/20 07:00 Dose: 4 mg Documented by: Pantoprazole Sodium (Protonix Iv) 40 mg IVPUSH ONETIME ONE Stop: 09/17/20 06:50 Last Admin: 09/17/20 06:58 Dose: 40 mg Documented by: Sodium Chloride (Saline Flush) 10 ml FLUSH ASDIRECTED PRN PRN Reason: Keep Vein Open Last Admin: 09/19/20 07:54 Dose: 10 ml Documented by: - Exam Wound/Incisions: Healing Well General: Alert, Oriented Lungs: Clear to Auscultation, Normal Respiratory Effort Cardiovascular: Regular Rate, Regular Rhythm, Other (wt is down to 113) GI/Abdominal Exam: Normal Bowel Sounds, Soft, Non-Tender Skin: Warm, Dry, Intact Sepsis Event Note - Evaluation Sepsis Screening Result: No Definite Risk - Focused Exam Vital Signs: Vital Signs Temp Pulse Resp BP Pulse Ox 09/23/20 04:00 16 09/23/20 02:30 98 F 90 18 119/81 95 09/22/20 20:00 97.5 F 83 16 139/75 97 - Problem List & Annotations (1) SBO (small bowel obstruction) SNOMED Code(s): 906175902 Code(s): K56.609 - UNSP INTESTNL OBST, UNSP TO PARTIAL VERSUS COMPLETE OBST Status: Acute Current Visit: Yes (2) Cholelithiases SNOMED Code(s): 752718143 Code(s): K80.20 - CALCULUS OF GALLBLADDER W/O CHOLECYSTITIS W/O OBSTRUCTION Status: Acute Current Visit: Yes Annotation/Comment:: unremarkable appearing gallbladder at the time of surgery. Qualifiers: Cholelithiasis location: gallbladder Cholecystitis presence: without cholecystitis Biliary obstruction: without biliary obstruction Qualified Code(s): K80.20 - Calculus of gallbladder without cholecystitis without obstruction - Problem List Review Problem List Initiated/Reviewed/Updated: Yes - My Orders Last 24 Hours: Active Orders 24 hr Category Date Time Status Clear Liquid Diet [DIET] Diet 09/22/20 Lunch Active D5 1/2 NS w/ 20 mEq/L KCl 1,000 ml Med 09/22/20 15:15 Active IV Q13H Metoclopramide [Reglan] Med 09/22/20 09:00 Active 5 mg IVPUSH TID Medication Orders Furosemide (Lasix) 20 mg IVPUSH DAILY [facility] Last Admin: 09/22/20 10:09 Dose: 20 mg Documented by: Admin: 09/21/20 09:51 Dose: 20 mg Documented by: TANYA Potassium Chloride/Dextrose/Sod Cl (D5 1/2 Ns W/ 20 Meq/L Kcl) 1,000 mls @ 75 mls/hr IV Q13H [facility] Last Admin: 09/23/20 04:36 Dose: 75 mls/hr Documented by: Admin: 09/22/20 17:27 Dose: Not Given Documented by: MINDY Metoclopramide HCl (Reglan) 5 mg IVPUSH TID [facility] Last Admin: 09/22/20 20:36 Dose: 5 mg Documented by: Admin: 09/22/20 14:57 Dose: 5 mg Documented by: Admin: 09/22/20 10:09 Dose: 5 mg Documented by: MINDY Morphine Sulfate (Morphine) 1 mg IVPUSH Q1H PRN PRN Reason: Pain Last Admin: 09/20/20 23:28 Dose: 1 mg Documented by: Admin: 09/20/20 09:09 Dose: 1 mg Documented by: Admin: 09/20/20 06:14 Dose: 1 mg Documented by: Admin: 09/20/20 04:11 Dose: 1 mg Documented by: Admin: 09/20/20 02:10 Dose: 1 mg Documented by: Admin: 09/19/20 23:41 Dose: 1 mg Documented by: MALENA Ondansetron HCl (Zofran) 4 mg IVPUSH Q4H PRN PRN Reason: Nausea/Vomiting Last Admin: 09/19/20 05:40 Dose: 4 mg Documented by: Admin: 09/18/20 17:09 Dose: 4 mg Documented by: Admin: 09/17/20 17:57 Dose: 4 mg Documented by: Admin: 09/17/20 13:57 Dose: 4 mg Documented by: EAGLE Pantoprazole Sodium (Protonix Iv) 40 mg IVPUSH Q24H [facility] Last Admin: 09/22/20 20:33 Dose: 40 mg Documented by: Admin: 09/21/20 19:57 Dose: 40 mg Documented by: Admin: 09/20/20 19:28 Dose: 40 mg Documented by: Admin: 09/19/20 20:25 Dose: 40 mg Documented by: ZIA - Assessment Assessment (Free Text/Narrative):: tolerating po would like to see more in terms of flatus wt is down - Plan Plan (Free Text/Narrative):: continue clears. suppository supplements stop lasix
--- NOTE | 2020-09-23 07:03 | OR ---
DATE OF OPERATION: 09/19/2020 SURGEON: Harinder Ortiz MD PROCEDURE PERFORMED: Exploratory laparotomy with lysis of adhesion. PREOPERATIVE DIAGNOSIS: Small-bowel obstruction and cholelithiasis. POSTOPERATIVE DIAGNOSIS: Cholelithiasis and small-bowel obstruction. INDICATIONS FOR PROCEDURE: This is an 85-year-old white female who was admitted with what appeared to be a small-bowel obstruction. She has had failed to make progression on placement of an NG tube this afternoon, noted to have what appeared to be feculent material. They had a combination of a KUB, which demonstrated an obstruction. She was offered and accepted an exploratory laparotomy. The patient had a right upper quadrant ultrasound performed during hospitalization and was noted to have some cholelithiasis. There was no evidence of cholecystitis. On discussing the procedure with the patient as well as her POA, they both expressed and gave us permission to proceed. DESCRIPTION OF PROCEDURE: After an excellent general anesthetic was administered via endotracheal tube, a Cutler catheter was placed under sterile conditions. The patient was prepped and draped in the usual sterile manner. A vertical midline incision was made in the midline of the patient's abdomen measuring approximately 10 cm in length. Underlying subcu fat was divided using electrocautery. The midline fascia was incised, and the abdominal cavity was entered. We were able to easily insert a finger, and after assuring no adhesions the midline was divided using electrocautery. The large intestine was mobilized and easily delivered into the operative field. On tracing the intestine down into the pelvis, there was 1 small the crossing adhesion which was the source of the obstruction. This was divided sharply and the adhesion was released. The remainder of the small intestine as well as the cecum was then delivered into the field as well. We did clamp the edge of the adhesion and tie off the edge. There was a difference in caliber, but we were easily able to milk the enteral contents across the area where the adhesion was, and as well the slowly milked contents back to the patient's stomach to aspirate via the NG tube, the intestine was noted to pink up and demonstrates normal peristaltic function. The initial NG tube which had been placed in the patient's room prior to surgery was not functioning as well, and this was replaced intraoperative with the tip being palpated in the patient's stomach. We obtained approximately 1000 mL total of enteral contents prior to the closure of the case. The patient's abdomen was then irrigated in all 4 quadrants with normal saline, and this was noted to be clear. Having completed this, the midline fascia was then closed with a running #1 prolene. There was 1 small gap that was slightly larger than acceptable and a single [id number] was placed in this area to completely closed the fascia just below the midline. A 20 mL of a one-to-one mixture of 1% lidocaine with epinephrine was then used to infiltrate the rectus muscle on both sides of the rectus sheath. The skin was then reapproximated using janny. Needle, sponge, and instrument counts were reported as correct. The patient was taken back to her room. EBL was 30 mL. A total of 800 mL of crystalloid was given, 160 mL of urine output was noted, and as noted a liter of NG tube aspirate was obtained. /[id number] /MODL
[2020-09-23] MEDS: Bisacodyl 10 MG Supp RECTAL SCH (10:02)
[2020-09-23] MEDS: Metoclopramide 10 MG/2 ML SDV IVPUSH SCH ×3 (10:02→20:37)
--- NOTE | 2020-09-23 17:23 | PCM.SN.2 ---
- Free Text/Narrative Note: reported to have two bowel movements today. will advance diet to full liquid in am.
[2020-09-23] MEDS: Pantoprazole 40 MG Vial IVPUSH SCH (20:37)
[2020-09-24] MEDS ORDERED: Acetaminophen/HYDROcodone 325-5 MG Tab PO PRN (07:36)
--- NOTE | 2020-09-24 07:37 | PCM.SURGPN ---
- General Info Date of Service: 09/24/20 POD#: 4 Functional Status: Reports: Pain Controlled, Tolerating Diet, Ambulating. Denies: New Symptoms - Review of Systems General: Reports: No Symptoms HEENT: Reports: No Symptoms Pulmonary: Reports: No Symptoms Cardiovascular: Reports: No Symptoms Gastrointestinal: Reports: Flatus, Other (reports bm ) - Patient Data Vitals - Most Recent: Last Vital Signs Temp 97.8 F 09/24/20 04:00 Pulse 91 09/24/20 04:00 Resp 16 09/24/20 04:00 BP 120/58 L 09/24/20 04:00 Pulse Ox 93 L 09/24/20 04:00 Weight - Most Recent: 53.127 kg I&O - Last 24 Hours: Intake & Output 09/23/20 09/24/20 09/24/20 22:59 06:59 14:59 Intake Total 1352 448 Output Total 325 400 Balance 1027 48 Lab Results Last 24 Hrs: Laboratory Results - last 24 hr 09/24/20 Range/Units 06:23 Sodium 133 L (135-145) mmol/L Potassium 3.4 L (3.5-5.3) mmol/L Chloride 101 (100-110) mmol/L Carbon Dioxide 23 (21-32) mmol/L BUN 14 (7-18) mg/dL Creatinine 1.0 (0.55-1.02) mg/dL Est Cr Clr Drug Dosing 29.01 mL/min Estimated GFR (MDRD) 53 L (>60) BUN/Creatinine Ratio 14.0 (9-20) Glucose 104 (80-116) mg/dL Calcium 7.4 L (8.6-10.2) mg/dL Med Orders - Current: Current Medications Bisacodyl (Dulcolax) 10 mg RECTAL DAILY [facility] Last Admin: 09/23/20 10:02 Dose: 10 mg Documented by: Potassium Chloride/Dextrose/Sod Cl (D5 1/2 Ns W/ 20 Meq/L Kcl) 1,000 mls @ 0 mls/hr IV Q13H [facility] Last Admin: 09/23/20 18:16 Dose: Not Given Documented by: Metoclopramide HCl (Reglan) 5 mg IVPUSH TID [facility] Last Admin: 09/23/20 20:37 Dose: 5 mg Documented by: Morphine Sulfate (Morphine) 1 mg IVPUSH Q1H PRN PRN Reason: Pain Last Admin: 09/20/20 23:28 Dose: 1 mg Documented by: Ondansetron HCl (Zofran) 4 mg IVPUSH Q4H PRN PRN Reason: Nausea/Vomiting Last Admin: 09/19/20 05:40 Dose: 4 mg Documented by: Pantoprazole Sodium (Protonix Iv) 40 mg IVPUSH Q24H [facility] Last Admin: 09/23/20 20:37 Dose: 40 mg Documented by: Potassium Chloride (Klor-Con M20) 20 meq PO DAILY [facility] Discontinued Medications Al Hydroxide/Mg Hydroxide (Mag-Al Susp) 30 ml PO Q2H PRN PRN Reason: Heartburn Bisacodyl (Dulcolax) 10 mg RECTAL ONETIME ONE Stop: 09/18/20 08:30 Last Admin: 09/18/20 08:42 Dose: 10 mg Documented by: Bisacodyl (Dulcolax) 10 mg RECTAL ONETIME ONE Stop: 09/22/20 07:58 Last Admin: 09/22/20 10:10 Dose: 10 mg Documented by: Carvedilol (Coreg) 3.125 mg PO BID [facility] Last Admin: 09/19/20 07:59 Dose: 3.125 mg Documented by: Digoxin (Lanoxin) 250 mcg IVPUSH ONETIME ONE Stop: 09/17/20 06:50 Last Admin: 09/17/20 07:00 Dose: 250 mcg Documented by: Furosemide (Lasix) 20 mg IVPUSH DAILY [facility] Last Admin: 09/22/20 10:09 Dose: 20 mg Documented by: Sodium Chloride (Normal Saline) 500 mls @ 500 mls/hr IV .BOLUS ONE Stop: 09/17/20 07:49 Last Admin: 09/17/20 07:00 Dose: 500 mls/hr Documented by: Sodium Chloride (Normal Saline) 1,000 mls @ 999 mls/hr IV .BOLUS ONE Stop: 09/17/20 08:48 Last Admin: 09/17/20 08:00 Dose: 999 mls/hr Documented by: Piperacillin Sod/Tazobactam (Sod 2.25 gm/ Sodium Chloride) 50 mls @ 100 mls/hr IV Q6H [facility] Last Admin: 09/17/20 09:02 Dose: 100 mls/hr Documented by: Sodium Chloride (Normal Saline) 1,000 mls @ 75 mls/hr IV ASDIRECTED [facility] Last Admin: 09/19/20 07:54 Dose: 75 mls/hr Documented by: Lactated Ringer's (Ringers, Lactated) 1,000 mls @ 125 mls/hr IV ASDIRECTED [facility] Last Admin: 09/20/20 04:18 Dose: 125 mls/hr Documented by: Potassium Chloride/Dextrose/Sod Cl (D5 1/2 Ns W/ 20 Meq/L Kcl) 1,000 mls @ 75 mls/hr IV ASDIRECTED [facility] Stop: 09/22/20 15:30 Last Admin: 09/22/20 15:09 Dose: 75 mls/hr Documented by: Iopamidol (Isovue-370 (76%)) 100 ml IV . DIRECTED ONE Stop: 09/17/20 08:03 Last Admin: 09/17/20 08:29 Dose: 50 ml Documented by: Ondansetron HCl (Zofran) 4 mg IVPUSH ONETIME ONE Stop: 09/17/20 06:50 Last Admin: 09/17/20 07:00 Dose: 4 mg Documented by: Pantoprazole Sodium (Protonix Iv) 40 mg IVPUSH ONETIME ONE Stop: 09/17/20 06:50 Last Admin: 09/17/20 06:58 Dose: 40 mg Documented by: Sodium Chloride (Saline Flush) 10 ml FLUSH ASDIRECTED PRN PRN Reason: Keep Vein Open Last Admin: 09/19/20 07:54 Dose: 10 ml Documented by: - Exam Wound/Incisions: No Drainage Lungs: Clear to Auscultation, Normal Respiratory Effort Cardiovascular: Regular Rate, Regular Rhythm GI/Abdominal Exam: Normal Bowel Sounds, Soft Sepsis Event Note - Evaluation Sepsis Screening Result: No Definite Risk - Focused Exam Vital Signs: Vital Signs Temp Pulse Resp BP Pulse Ox 09/24/20 04:00 97.8 F 91 16 120/58 L 93 L 09/24/20 00:00 97.6 F 94 16 132/76 95 09/23/20 20:00 97.8 F 98 16 154/74 H 95 - Problem List & Annotations (1) SBO (small bowel obstruction) SNOMED Code(s): 381480685 Code(s): K56.609 - UNSP INTESTNL OBST, UNSP TO PARTIAL VERSUS COMPLETE OBST Status: Acute Current Visit: Yes (2) Cholelithiases SNOMED Code(s): 053972735 Code(s): K80.20 - CALCULUS OF GALLBLADDER W/O CHOLECYSTITIS W/O OBSTRUCTION Status: Acute Current Visit: Yes Annotation/Comment:: unremarkable appearing gallbladder at the time of surgery. Qualifiers: Cholelithiasis location: gallbladder Cholecystitis presence: without cholecystitis Biliary obstruction: without biliary obstruction Qualified Code(s): K80.20 - Calculus of gallbladder without cholecystitis without obstruction - Problem List Review Problem List Initiated/Reviewed/Updated: Yes - My Orders Last 24 Hours: Active Orders 24 hr Category Date Time Status Dietary Supplements [RC] TIDMEALS Care 09/23/20 06:43 Active PT Evaluation and Treatment [CONS] Routine Cons 09/23/20 08:12 Active Full Liquid Diet [DIET] Diet 09/24/20 Breakfast Active Potassium Chloride [Klor-Con M20] Med 09/24/20 09:00 Ordered 20 meq PO DAILY bisacodyL [Dulcolax] Med 09/23/20 09:00 Active 10 mg RECTAL DAILY Convert IV to Saline Lock [OM.PC] Routine Oth 09/24/20 07:33 Ordered Medication Orders Bisacodyl (Dulcolax) 10 mg RECTAL DAILY [facility] Last Admin: 09/23/20 10:02 Dose: 10 mg Documented by: RADHA Potassium Chloride/Dextrose/Sod Cl (D5 1/2 Ns W/ 20 Meq/L Kcl) 1,000 mls @ 0 mls/hr IV Q13H [facility] Last Admin: 09/23/20 18:16 Dose: Not Given Documented by: Infusion: 09/23/20 06:40 Dose: 30 mls/hr Documented by: Admin: 09/23/20 04:36 Dose: 75 mls/hr Documented by: Admin: 09/22/20 17:27 Dose: Not Given Documented by: MINDY Metoclopramide HCl (Reglan) 5 mg IVPUSH TID [facility] Last Admin: 09/23/20 20:37 Dose: 5 mg Documented by: Admin: 09/23/20 13:25 Dose: 5 mg Documented by: Admin: 09/23/20 10:02 Dose: 5 mg Documented by: Admin: 09/22/20 20:36 Dose: 5 mg Documented by: Admin: 09/22/20 14:57 Dose: 5 mg Documented by: Admin: 09/22/20 10:09 Dose: 5 mg Documented by: MINDY Morphine Sulfate (Morphine) 1 mg IVPUSH Q1H PRN PRN Reason: Pain Last Admin: 09/20/20 23:28 Dose: 1 mg Documented by: Admin: 09/20/20 09:09 Dose: 1 mg Documented by: Admin: 09/20/20 06:14 Dose: 1 mg Documented by: Admin: 09/20/20 04:11 Dose: 1 mg Documented by: Admin: 09/20/20 02:10 Dose: 1 mg Documented by: Admin: 09/19/20 23:41 Dose: 1 mg Documented by: MALENA Ondansetron HCl (Zofran) 4 mg IVPUSH Q4H PRN PRN Reason: Nausea/Vomiting Last Admin: 09/19/20 05:40 Dose: 4 mg Documented by: Admin: 09/18/20 17:09 Dose: 4 mg Documented by: Admin: 09/17/20 17:57 Dose: 4 mg Documented by: Admin: 09/17/20 13:57 Dose: 4 mg Documented by: EAGLE Pantoprazole Sodium (Protonix Iv) 40 mg IVPUSH Q24H [facility] Last Admin: 09/23/20 20:37 Dose: 40 mg Documented by: Admin: 09/22/20 20:33 Dose: 40 mg Documented by: Admin: 09/21/20 19:57 Dose: 40 mg Documented by: Admin: 09/20/20 19:28 Dose: 40 mg Documented by: Admin: 09/19/20 20:25 Dose: 40 mg Documented by: ZIA Potassium Chloride (Klor-Con M20) 20 meq PO DAILY [facility] - Assessment Assessment (Free Text/Narrative):: K low will start some potassium po. saline lock iv po pain medication - Plan Plan (Free Text/Narrative):: diet advanced this am.
[2020-09-24] MEDS: D5 1/2 NS w/ 20 mEq/L KCl 1,000 ML IV SCH (09:49)
[2020-09-24] MEDS: Potassium Chloride 20 MEQ Tab.ER PO SCH (11:04)
[2020-09-24] MEDS: Metoclopramide 10 MG/2 ML SDV IVPUSH SCH (11:05)
[2020-09-24] MEDS: Bisacodyl 10 MG Supp RECTAL SCH (11:07)
[2020-09-24] MEDS: Pantoprazole 40 MG Vial IVPUSH SCH (23:47)
[2020-09-25 04:36] VITALS: PULSE 84
--- NOTE | 2020-09-25 07:49 | PCM.SURGPN ---
- General Info Date of Service: 09/25/20 POD#: 6 Functional Status: Reports: Pain Controlled, Tolerating Diet, Urinating - Review of Systems Pulmonary: Reports: No Symptoms Cardiovascular: Reports: No Symptoms Gastrointestinal: Reports: Flatus, Other (heart burn ) - Patient Data Vitals - Most Recent: Last Vital Signs Temp 98.0 F 09/25/20 04:36 Pulse 84 09/25/20 04:36 Resp 16 09/25/20 04:36 BP 131/76 09/25/20 04:36 Pulse Ox 94 L 09/25/20 04:36 Weight - Most Recent: 53.887 kg I&O - Last 24 Hours: Intake & Output 09/24/20 09/25/20 09/25/20 22:59 06:59 14:59 Intake Total 400 230 Output Total 450 450 Balance -50 -220 Med Orders - Current: Current Medications Hydrocodone Bitart/Acetaminophen ([place] 325-5 Mg) 1 tab PO Q6H PRN PRN Reason: Pain Bisacodyl (Dulcolax) 10 mg RECTAL DAILY [facility] Last Admin: 09/24/20 11:07 Dose: Not Given Documented by: Ondansetron HCl (Zofran) 4 mg IVPUSH Q4H PRN PRN Reason: Nausea/Vomiting Last Admin: 09/19/20 05:40 Dose: 4 mg Documented by: Pantoprazole Sodium (Protonix) 40 mg PO DAILY [facility] Potassium Chloride (Klor-Con M20) 20 meq PO DAILY [facility] Last Admin: 09/24/20 11:04 Dose: 20 meq Documented by: Discontinued Medications Al Hydroxide/Mg Hydroxide (Mag-Al Susp) 30 ml PO Q2H PRN PRN Reason: Heartburn Bisacodyl (Dulcolax) 10 mg RECTAL ONETIME ONE Stop: 09/18/20 08:30 Last Admin: 09/18/20 08:42 Dose: 10 mg Documented by: Bisacodyl (Dulcolax) 10 mg RECTAL ONETIME ONE Stop: 09/22/20 07:58 Last Admin: 09/22/20 10:10 Dose: 10 mg Documented by: Carvedilol (Coreg) 3.125 mg PO BID [facility] Last Admin: 09/19/20 07:59 Dose: 3.125 mg Documented by: Digoxin (Lanoxin) 250 mcg IVPUSH ONETIME ONE Stop: 09/17/20 06:50 Last Admin: 09/17/20 07:00 Dose: 250 mcg Documented by: Furosemide (Lasix) 20 mg IVPUSH DAILY [facility] Last Admin: 09/22/20 10:09 Dose: 20 mg Documented by: Sodium Chloride (Normal Saline) 500 mls @ 500 mls/hr IV .BOLUS ONE Stop: 09/17/20 07:49 Last Admin: 09/17/20 07:00 Dose: 500 mls/hr Documented by: Sodium Chloride (Normal Saline) 1,000 mls @ 999 mls/hr IV .BOLUS ONE Stop: 09/17/20 08:48 Last Admin: 09/17/20 08:00 Dose: 999 mls/hr Documented by: Piperacillin Sod/Tazobactam (Sod 2.25 gm/ Sodium Chloride) 50 mls @ 100 mls/hr IV Q6H [facility] Last Admin: 09/17/20 09:02 Dose: 100 mls/hr Documented by: Sodium Chloride (Normal Saline) 1,000 mls @ 75 mls/hr IV ASDIRECTED [facility] Last Admin: 09/19/20 07:54 Dose: 75 mls/hr Documented by: Lactated Ringer's (Ringers, Lactated) 1,000 mls @ 125 mls/hr IV ASDIRECTED [facility] Last Admin: 09/20/20 04:18 Dose: 125 mls/hr Documented by: Potassium Chloride/Dextrose/Sod Cl (D5 1/2 Ns W/ 20 Meq/L Kcl) 1,000 mls @ 75 mls/hr IV ASDIRECTED [facility] Stop: 09/22/20 15:30 Last Admin: 09/22/20 15:09 Dose: 75 mls/hr Documented by: Potassium Chloride/Dextrose/Sod Cl (D5 1/2 Ns W/ 20 Meq/L Kcl) 1,000 mls @ 0 mls/hr IV Q13H [facility] Last Admin: 09/24/20 09:49 Dose: Not Given Documented by: Iopamidol (Isovue-370 (76%)) 100 ml IV . DIRECTED ONE Stop: 09/17/20 08:03 Last Admin: 09/17/20 08:29 Dose: 50 ml Documented by: Metoclopramide HCl (Reglan) 5 mg IVPUSH TID [facility] Last Admin: 09/24/20 11:05 Dose: 5 mg Documented by: Morphine Sulfate (Morphine) 1 mg IVPUSH Q1H PRN PRN Reason: Pain Last Admin: 09/20/20 23:28 Dose: 1 mg Documented by: Ondansetron HCl (Zofran) 4 mg IVPUSH ONETIME ONE Stop: 09/17/20 06:50 Last Admin: 09/17/20 07:00 Dose: 4 mg Documented by: Pantoprazole Sodium (Protonix Iv) 40 mg IVPUSH ONETIME ONE Stop: 09/17/20 06:50 Last Admin: 09/17/20 06:58 Dose: 40 mg Documented by: Pantoprazole Sodium (Protonix Iv) 40 mg IVPUSH Q24H [facility] Last Admin: 09/24/20 23:47 Dose: Not Given Documented by: Sodium Chloride (Saline Flush) 10 ml FLUSH ASDIRECTED PRN PRN Reason: Keep Vein Open Last Admin: 09/19/20 07:54 Dose: 10 ml Documented by: - Exam Wound/Incisions: Healing Well Lungs: Clear to Auscultation, Normal Respiratory Effort Cardiovascular: Regular Rate, Regular Rhythm GI/Abdominal Exam: Normal Bowel Sounds, Soft, Non-Tender Skin: Warm, Dry, Intact Sepsis Event Note - Evaluation Sepsis Screening Result: No Definite Risk - Focused Exam Vital Signs: Vital Signs Temp Pulse Resp BP Pulse Ox 09/25/20 04:36 98.0 F 84 16 131/76 94 L 09/25/20 01:07 98.1 F 86 18 156/80 H 92 L 09/24/20 20:00 97.4 F 88 18 132/72 95 - Problem List & Annotations (1) SBO (small bowel obstruction) SNOMED Code(s): 899117072 Code(s): K56.609 - UNSP INTESTNL OBST, UNSP TO PARTIAL VERSUS COMPLETE OBST Status: Acute Current Visit: Yes (2) Cholelithiases SNOMED Code(s): 581448916 Code(s): K80.20 - CALCULUS OF GALLBLADDER W/O CHOLECYSTITIS W/O OBSTRUCTION Status: Acute Current Visit: Yes Annotation/Comment:: unremarkable appearing gallbladder at the time of surgery. Qualifiers: Cholelithiasis location: gallbladder Cholecystitis presence: without cholecystitis Biliary obstruction: without biliary obstruction Qualified Code(s): K80.20 - Calculus of gallbladder without cholecystitis without obstruction - Problem List Review Problem List Initiated/Reviewed/Updated: Yes - My Orders Last 24 Hours: Active Orders 24 hr Category Date Time Status Regular Diet [DIET] Diet 09/25/20 Breakfast Active Acetaminophen/HYDROcodone [[place] 325-5 MG] Med 09/24/20 07:36 Active 1 tab PO Q6H PRN Pantoprazole [ProTONIX] Med 09/25/20 09:00 Ordered 40 mg PO DAILY Potassium Chloride [Klor-Con M20] Med 09/24/20 09:00 Active 20 meq PO DAILY Convert IV to Saline Lock [OM.PC] Routine Oth 09/24/20 07:33 Ordered Medication Orders Hydrocodone Bitart/Acetaminophen ([place] 325-5 Mg) 1 tab PO Q6H PRN PRN Reason: Pain Bisacodyl (Dulcolax) 10 mg RECTAL DAILY [facility] Last Admin: 09/24/20 11:07 Dose: Not Given Documented by: Admin: 09/23/20 10:02 Dose: 10 mg Documented by: RADHA Ondansetron HCl (Zofran) 4 mg IVPUSH Q4H PRN PRN Reason: Nausea/Vomiting Last Admin: 09/19/20 05:40 Dose: 4 mg Documented by: Admin: 09/18/20 17:09 Dose: 4 mg Documented by: Admin: 09/17/20 17:57 Dose: 4 mg Documented by: Admin: 09/17/20 13:57 Dose: 4 mg Documented by: EAGLE Pantoprazole Sodium (Protonix) 40 mg PO DAILY [facility] Potassium Chloride (Klor-Con M20) 20 meq PO DAILY [facility] Last Admin: 09/24/20 11:04 Dose: 20 meq Documented by: ADAN - Assessment Assessment (Free Text/Narrative):: doing very well - Plan Plan (Free Text/Narrative):: regular diet. will restart Protonix anticipate discharge today.
[2020-09-25] MEDS ORDERED: Pantoprazole 40 MG Tab.CR PO SCH (08:00)
[2020-09-25] MEDS: Bisacodyl 10 MG Supp RECTAL SCH (08:33)
[2020-09-25] MEDS: Potassium Chloride 20 MEQ Tab.ER PO SCH (08:41)
--- NOTE | 2020-09-25 11:14 | PCM.DCSUM1 ---
Discharge Summary - Hospital Course Free Text/Narrative:: Pt was admitted with what appeared to be a small bowel obstruction. Did not demonstrate and significant issue such as vomiting and did not require an NGT. She did not tolerate po diet. On hospital day 3 noted an increase in pain, KUB demonstrated persistent obstruction. A NGT was placed by the covering surgeon and she was noted to have feculent material. On the basis of these findings she was taken to the OR. In the operating room a single band was lysed. The small bowel appeared viable. She had been noted to have gallstones no US done during her admission. Inspection of the gallbladder revealed a normal appearing organ so it was not addressed to limit time under anesthesia. Post op course: Cutler out Day 1, NGT was removed several days latter. She did have a weight increase of several lbs that responded nicely it iv lasix and cutting back on her IV. She did receive some Reglan, Dulcolax suppositories as well as a Tens unit in a effort to help with bowel function. With return of bowel function she was started on a clear liquid diet which was slowly advanced over several days. She is tolerating a regular diet at the time of discharge. She will be discharged to home. Does not want home health, does have a POA who is very attentive. Tylenol for pain as she has not used any narcotics. Diagnosis: Stroke: No - Discharge Data Discharge Date: 09/25/20 Discharge Disposition: Home, Self-Care 01 Condition: Good - Referral to Home Health Primary Care Physician: Gab Calix MD - Discharge Diagnosis/Problem(s) (1) SBO (small bowel obstruction) SNOMED Code(s): 899402726 ICD Code: K56.609 - UNSP INTESTNL OBST, UNSP TO PARTIAL VERSUS COMPLETE OBST Status: Acute Current Visit: Yes (2) Cholelithiases SNOMED Code(s): 788767033 ICD Code: K80.20 - CALCULUS OF GALLBLADDER W/O CHOLECYSTITIS W/O OBSTRUCTION Status: Acute Current Visit: Yes Problem Details: unremarkable appearing gallbladder at the time of surgery. Qualifiers: Cholelithiasis location: gallbladder Cholecystitis presence: without cholecystitis Biliary obstruction: without biliary obstruction Qualified Code(s): K80.20 - Calculus of gallbladder without cholecystitis without obstruction - Patient Summary/Data Operative Procedure(s) Performed: ex lap with lysis of adhesion Consults: Consultations 09/17/20 10:26 Consult to Physician [CONS] Routine Consulting Provider: Mikey Crews Call Completed to Consulting Physician: Yes 09/23/20 08:12 PT Evaluation and Treatment [CONS] Routine Please Evaluate and Treat. PT Reason for Consult: Other (Type Response) Special Instructions: Dr Ortiz wants pt to have a TENS unit to abdomen post surgery This query below is only for informational purposes and is not editable. Admission Diagnosis/Problem: Small bowel obstruction - Patient Instructions Diet: Usual Diet as Tolerated Activity: No Lifting Over 20 Pounds Activity, Other: walk, steps okay Showering/Bathing: May Shower Notify Provider of: Fever, Increased Pain Other/Special Instructions: tylenol for pain a needed. - Discharge Plan *PRESCRIPTION DRUG MONITORING PROGRAM REVIEWED*: Yes *COPY OF PRESCRIPTION DRUG MONITORING REPORT IN PATIENT JULITO: No Home Medications: Home Meds Aspirin [Adult Low Dose Aspirin EC] 81 mg PO DAILY 08/09/15 [History] Multivitamin 1 tab PO DAILY 09/17/20 [History] Pantoprazole Sodium [Protonix] 40 mg PO DAILY 09/17/20 [History] Patient Handouts: Potassium chloride tablets, extended-release tablets or capsules Forms: Take Home DC Nutrition Plan Referrals: Harinder Ortiz MD [Physician] - 09/30/20 (for janny ) - Discharge Summary/Plan Comment DC Time >30 min.: No - Patient Data Vitals - Most Recent: Last Vital Signs Temp 98.0 F 09/25/20 04:36 Pulse 84 09/25/20 04:36 Resp 16 09/25/20 04:36 BP 131/76 09/25/20 04:36 Pulse Ox 94 L 09/25/20 04:36 Weight - Most Recent: 53.887 kg I&O - Last 24 hours: Intake & Output 09/24/20 09/25/20 09/25/20 22:59 06:59 14:59 Intake Total 400 230 Output Total 450 450 Balance -50 -220 Med Orders - Current: Current Medications Hydrocodone Bitart/Acetaminophen ([place] 325-5 Mg) 1 tab PO Q6H PRN PRN Reason: Pain Bisacodyl (Dulcolax) 10 mg RECTAL DAILY [facility] Last Admin: 09/25/20 08:33 Dose: Not Given Documented by: Ondansetron HCl (Zofran) 4 mg IVPUSH Q4H PRN PRN Reason: Nausea/Vomiting Last Admin: 09/19/20 05:40 Dose: 4 mg Documented by: Pantoprazole Sodium (Protonix) 40 mg PO ACBREAKFAST [facility] Last Admin: 09/25/20 08:41 Dose: 40 mg Documented by: Potassium Chloride (Klor-Con M20) 20 meq PO DAILY [facility] Last Admin: 09/25/20 08:41 Dose: 20 meq Documented by: Discontinued Medications Al Hydroxide/Mg Hydroxide (Mag-Al Susp) 30 ml PO Q2H PRN PRN Reason: Heartburn Bisacodyl (Dulcolax) 10 mg RECTAL ONETIME ONE Stop: 09/18/20 08:30 Last Admin: 09/18/20 08:42 Dose: 10 mg Documented by: Bisacodyl (Dulcolax) 10 mg RECTAL ONETIME ONE Stop: 09/22/20 07:58 Last Admin: 09/22/20 10:10 Dose: 10 mg Documented by: Carvedilol (Coreg) 3.125 mg PO BID [facility] Last Admin: 09/19/20 07:59 Dose: 3.125 mg Documented by: Digoxin (Lanoxin) 250 mcg IVPUSH ONETIME ONE Stop: 09/17/20 06:50 Last Admin: 09/17/20 07:00 Dose: 250 mcg Documented by: Furosemide (Lasix) 20 mg IVPUSH DAILY [facility] Last Admin: 09/22/20 10:09 Dose: 20 mg Documented by: Sodium Chloride (Normal Saline) 500 mls @ 500 mls/hr IV .BOLUS ONE Stop: 09/17/20 07:49 Last Admin: 09/17/20 07:00 Dose: 500 mls/hr Documented by: Sodium Chloride (Normal Saline) 1,000 mls @ 999 mls/hr IV .BOLUS ONE Stop: 09/17/20 08:48 Last Admin: 09/17/20 08:00 Dose: 999 mls/hr Documented by: Piperacillin Sod/Tazobactam (Sod 2.25 gm/ Sodium Chloride) 50 mls @ 100 mls/hr IV Q6H [facility] Last Admin: 09/17/20 09:02 Dose: 100 mls/hr Documented by: Sodium Chloride (Normal Saline) 1,000 mls @ 75 mls/hr IV ASDIRECTED [facility] Last Admin: 09/19/20 07:54 Dose: 75 mls/hr Documented by: Lactated Ringer's (Ringers, Lactated) 1,000 mls @ 125 mls/hr IV ASDIRECTED [facility] Last Admin: 09/20/20 04:18 Dose: 125 mls/hr Documented by: Potassium Chloride/Dextrose/Sod Cl (D5 1/2 Ns W/ 20 Meq/L Kcl) 1,000 mls @ 75 mls/hr IV ASDIRECTED [facility] Stop: 09/22/20 15:30 Last Admin: 09/22/20 15:09 Dose: 75 mls/hr Documented by: Potassium Chloride/Dextrose/Sod Cl (D5 1/2 Ns W/ 20 Meq/L Kcl) 1,000 mls @ 0 mls/hr IV Q13H [facility] Last Admin: 09/24/20 09:49 Dose: Not Given Documented by: Iopamidol (Isovue-370 (76%)) 100 ml IV . DIRECTED ONE Stop: 09/17/20 08:03 Last Admin: 09/17/20 08:29 Dose: 50 ml Documented by: Metoclopramide HCl (Reglan) 5 mg IVPUSH TID [facility] Last Admin: 09/24/20 11:05 Dose: 5 mg Documented by: Morphine Sulfate (Morphine) 1 mg IVPUSH Q1H PRN PRN Reason: Pain Last Admin: 09/20/20 23:28 Dose: 1 mg Documented by: Ondansetron HCl (Zofran) 4 mg IVPUSH ONETIME ONE Stop: 09/17/20 06:50 Last Admin: 09/17/20 07:00 Dose: 4 mg Documented by: Pantoprazole Sodium (Protonix Iv) 40 mg IVPUSH ONETIME ONE Stop: 09/17/20 06:50 Last Admin: 09/17/20 06:58 Dose: 40 mg Documented by: Pantoprazole Sodium (Protonix Iv) 40 mg IVPUSH Q24H [facility] Last Admin: 09/24/20 23:47 Dose: Not Given Documented by: Sodium Chloride (Saline Flush) 10 ml FLUSH ASDIRECTED PRN PRN Reason: Keep Vein Open Last Admin: 09/19/20 07:54 Dose: 10 ml Documented by: *Q Meaningful Use (DIS) - VTE *Q VTE Mechanical Contraindications *Q: Bilateral Lower Ischemia
[2020-09-25 19:55] VITALS: BP 124/61
== END 2020-09-25 13:00 | disposition home or self-care (01) | DRG 336 ==
LOC: FB.ED 06:15 → FB.MS 09:30 → UNDOADMIN 09:30 → FB.MS 22:54 → FB.ICU 09-19 19:30 → FB.MS 09-20 09:03
PROVIDERS: ADMIT Family Medicine; ATTEND Surgery
PROC: 0DNH0ZZ Release Cecum, Open Approach (ICD-10-PCS; principal; 2020-09-19)
PROC: 0DN80ZZ Release Small Intestine, Open Approach (ICD-10-PCS; 2020-09-19)
DX: K56.609 Unspecified intestinal obstruction, unspecified as to partial versus complete obstruction (principal); K56.51 Intestinal adhesions [bands], with partial obstruction; N17.9 Acute kidney failure, unspecified; K80.20 Calculus of gallbladder without cholecystitis without obstruction; I48.91 Unspecified atrial fibrillation; Z20.828 Contact with and (suspected) exposure to other viral communicable diseases; Z51.5 Encounter for palliative care; Z66 Do not resuscitate; H35.30 Unspecified macular degeneration; H54.7 Unspecified visual loss; M54.9 Dorsalgia, unspecified; G89.29 Other chronic pain; K21.9 Gastro-esophageal reflux disease without esophagitis; M19.90 Unspecified osteoarthritis, unspecified site; D64.9 Anemia, unspecified; R74.02 Elevation of levels of lactic acid dehydrogenase [LDH]; H52.4 Presbyopia; H52.209 Unspecified astigmatism, unspecified eye; I50.9 Heart failure, unspecified; Z79.82 Long term (current) use of aspirin; Z98.49 Cataract extraction status, unspecified eye; Z90.710 Acquired absence of both cervix and uterus; Z87.891 Personal history of nicotine dependence; Z79.899 Other long term (current) drug therapy
CPT/HCPCS: 00790-QZ; 36415; 74019; 74177; 76705; 80048; 80053; 81001; 83605; 83690; 83735; 84443; 84484; 85025; 85610; 85730; 87040; 93005; 93010; 94150; 96361; 96374; 96375; 97161-GP; 99285; 99285-25; A9270-GY; C9113; J0330; J0690; J1100; J1160; J1940; J2001; J2270; J2405; J2543; J2704; J2765; J3010; J3480; J3490; J7030; J7040; J7050; J7120; Q9967; U0002